=== PATIENT | female | born 1940 | race Caucasian/White ===

== ENCOUNTER 2023-12-06 15:02 | Inpatient (IN) | payer OTHER, SELFPAY ==
[2023-12-06] VITALS (54 sets, daily range): BP systolic 50–236; BP diastolic 20–207
[2023-12-06 11:00] LABS: Glucose - Point of Care 97 mg/dl (70-99)
--- NOTE | 2023-12-06 11:21 | ED.CVA ---
History of Present Illness
General
Chief Complaint: CVA/TIA Symptoms
Source: ambulance crew
Exam Limitations: none
Time Seen by Provider: 12/06/23 11:10
Nursing documentation reviewed up to this point in time: agreed with
Onset of Stroke Symptoms
Onset of symptoms known: No
Time pt last seen normal is known: Yes
Date last time pt seen normal: 12/05/23
Travel History
Have you had any contact with someone who has COVID-19?: Unable to Answer
Do you have any symptoms of coronavirus? Fever > 100 degrees, chills, cough, shortness of breath, sore throat, loss of taste or smell, muscle aches, or headache?: Unable to Answer
History of Present Illness
History of Present Illness:
83 yo female presents to the emergency department due to left-sided weakness. She had not been seen since 5 PM yesterday. She was found on the floor, slurred speech and left-sided weakness.
Past History
Past History
ED Past Medical History: Cancer (Skin cancer), HTN, Hypercholesterolemia and Other (Migraines)
ED Past Surgical History: Other (Rectal tumor removed)
Social History
Tobacco: Non-smoker
Alcohol: None
Drug: None
Personal: Single
Living: alone
Employment: Employed
Family History
Family History: Other (Noncontributory)
Review of Systems
Review of Systems
Allergies reviewed?: Yes
All Other Systems: Not applicable
Phy Exam
Physical Exam
Physical Exam:
Physical Exam
General: Ill-appearing, hypotensive
Neck: supple. no meningeal signs. normal posterior pharynx
Heart: s1/s2 tachycardia, irregular rhythm, no murmur. equal radial
pulses.
HEENT: Pupils equal round reactive to light, EOMI
Lungs: no acute respiratory distress. clear bilaterally
Abdomen: normal bowel sounds. not tender. no CVAT
Neuro: alert but not oriented, follows some commands. Left arm and leg weakness. Cranial nerves II through XII intact
Skin: no rash, pressure ulcer left buttock
Psychiatric: Confused
Extremities: no edema. no calf tenderness. negative homans. good distal pulses
Scores
NIH Stroke Score
Level of Consciousness: 0 - Alert
LOC Questions: 2-Neither correct
LOC Commands: 0-Performs both correctly
Best Horizontal Gaze: 0-Normal
Visual Rangel: 0=Normal, no visual loss
Facial Palsy: 0=Normal, symmetrical
Motor - Right Arm: 0=No drift 10 seconds
Motor - Left Arm: 4=No movement
Motor - Right Le-No drift 5 seconds
Motor - Left Le-Partial vs. gravity
Limb Ataxia: 0-Absent
Sensation: 0-Normal
Best Language: 0-No aphasia
Dysarthria: 1-Mild slurring
Extinction and Inattention: 2-Total susanne inattention
Total Score:: 11
Course
Orders/Labs/Results
Orders:
Orders
12/06/23 10:55
Electrocardiogram (*1) Urgent
Reason for Study: TIA/Stroke
12/06/23 10:57
CT Head W/o Iv Contrast Urgent
Comment:
Reason For Exam: change in mentation
EKG- Treatment ONCE
12/06/23 11:11
Complete Blood Count/With Diff Urgent
Comprehensive Metabolic Panel Urgent
Creatine Phosphokinase Urgent
Lactic Acid Urgent
Manual Differential Urgent
Urinalysis Reflex To Culture Urgent
Date Specimen was Collected: 12/06/23
Time Specimen was Collected: 11:10
Urine Microscopic Reflex Cult Urgent
Blood Culture Urgent
[facility] Source: Blood/Venous
Specimen Description:
Date Specimen was Collected: 12/06/23
Time Specimen was Collected: 11:10
12/06/23 11:16
Add On- LAB Urgent
Tests Added?: CPK
12/06/23 11:26
CR Chest Portable - 1 View Urgent
Comment:
Reason For Exam: hypoxia
Reason Study Needs to be Portable: Unable to Transport
12/06/23 11:32
0.9% Sodium Chloride 1000 ml [Nss] 2,000 ml IV BOLUS
12/06/23 14:12
Maldonado Catheter [Catheter- Indwelling] As Directed
Reason for insertion: Acute Kidney Injury
Discontinue Date/Time: 12/09/23 0600
Intake/ Output As Directed
Frequency: Per unit guidelines
Comment: strict intake and output monitoring
Weight As Directed
Frequency: Daily
12/06/23 14:25
Aspirin 300 mg RECTAL NOW STA
12/06/23 14:41
Blood Culture Urgent
[facility] Source: Blood/Venous
Specimen Description:
12/06/23 Dinner
NPO
Reason for opting out of [employer] order writing: Provider Decision
Allow oral meds: No
Allow clear liquids: No
12/07/23 08:00
Aspirin 300 mg RECTAL DAILY
Abnormal Lab Results
12/06/23
11:11
WBC 32.4 H 10^3/uL
(4.8-10.8)
RBC 7.10 H 10^6/uL
(4.20-5.40)
Hgb 17.8 H g/dL
(12.0-16.0)
Hct 52.0 H %
(37.0-47.0)
MCV 73.2 L fL
(81.0-99.0)
MCH 25.1 L pg
(27.0-31.0)
RDW 16.9 H %
(11.5-14.5)
Abs Neuts (Manual) 30.1 H 10^3/uL
(1.4-6.5)
Segmented Neutrophils 90 H %
(42-75)
Lymphocytes (Manual) 2 L %
(20-51)
Carbon Dioxide 15 L mmol/L
(22-30)
BUN 159 H* mg/dl
(7-17)
Creatinine 6.8 H* mg/dL
(0.6-1.0)
Glucose 109 H mg/dl
(70-99)
Lactic Acid 3.6 H mmol/L
(0.7-2.0)
AST 61 H U/L
(14-36)
Creatine Kinase 1334 H U/L
(30-135)
Urine Ketones Trace A
(Negative)
Ur Occult Blood Reflex 4+ A
(Negative)
Urine Bilirubin 1+ A
(Negative)
Leukocyte Esterase Rfl Trace A
(Negative)
Urine RBC 3-6 A /HPF
(0-2)
Urine Bacteria (Reflex) Few A
(Negative)
Urine Yeast Few A
(Negative)
Urine Albumin (Reflex) 3+ A
(Neg - Trace)
12/06/23 11:11
12/06/23 11:11
Vital Signs
Initial and Last Documented VS:
Initial Vital Signs
BP
112/100
12/06/23 10:57
Last Documented Vital Signs
Temp Pulse Resp BP Pulse Ox
97.1 F 104 20 140/98 96
12/06/23 10:58 12/06/23 13:31 12/06/23 13:31 12/06/23 13:31 12/06/23 13:31
MDM/Problems Addressed
Differential Diagnosis Includes:
CVA, hypovolemia, urinary retention
MDM/Problems Addressed:
83-year-old female with left-sided CVA, urinary retention, hypokalemia, rhabdomyolysis, acute kidney failure. IV fluids, no indication for tPA, his last known normal unclear. Admit to hospitalist.
Chronic conditions affecting care: HTN
Acute Exacerbation and/or Progression of Chronic Illness: HTN
*Radiology
Radiology exam reviewed: radiology read reviewed (CT head shows no signs of acute hemorrhage or transcortical infarct, large amount of low-attenuation of periventricular white matter, possibly due to ischemic changes or infarction, infectious or
toxic encephalopathy)
*Pulse Oximetry
Patient hypoxic: yes
*EKG
Interpreted by ED Provider?: Yes
EKG Intrepretation Date: 12/06/23
EKG Intrepretation Time: 11:05
Interpretation: abnormal
Comparison EKG: no changes
Heart Rate: 122
Rate: tachycardiac
Rhythm: sinus tachycardia
Sisters: normal axis
Interval: normal interval
QRS Pattern: normal QRS
Ischemia: no ischemia
*Franchise Manager Interpretation
Rate: tachycardiac
Interpretation: abnormal
Heart Rate: 125
Rhythm: sinus tachycardia
*Critical Care Note
Total Time (30-74mins, 75-104mins- exclusive of procedures): 30
comment:
Critical care statement: A total of 30 minutes of critical care time was provided for this patient. This includes management of unstable vital signs, evaluation of the patient at bedside, reviewing the patient's pertinent medical records, discussion
with consultants, review of old EKGs and review of pertinent medical records. This time with separate from time utilized to perform the aforementioned documented procedures
Data Reviewed
Review of Other/Old Records Reveals: Labs (Prior creatinine 1.2 on 08/02/2019)
Source: records
Prescriptions/Medications Considered But Not Given:
TNK considered, but not indicated due to timing
Patient Management
Social determinants of health affecting care: Living situation (Lives alone)
Discussion with other providers: Hospitalist and Rail Express Clerk (Neurology, Dr. Alvarado asked to see patient)
Escalation/DeEscalation of care consider admission/obs:
Admit indicated
ED Attending Note
-
Portions of this chart may have been created with voice recognition software.� Occasional wrong word or��sound alike� substitutions may have occurred due to the inherent limitations of voice recognition software.
Discharge Plan
Departure
Patient Disposition: Admit
Date of Disposition: 12/06/23
Time of Disposition: 13:25
Admit to: IMU
Presentation/result/management discussed w/ accepting MD/DO: Hospitalist
Patient with high blood pressure during this ER visit?: Yes
Condition: Fair
Discharge Problem:
Acute cerebrovascular accident (CVA), Acute renal failure, Acute urinary retention, Acute hypotension, Rhabdomyolysis
Prescriptions:
No Action
atorvastatin 10 mg tablet
10 mg PO DAILY
levothyroxine 50 mcg tablet
50 mcg PO MOTUWETHFRSA
losartan 100 mg tablet
100 mg PO DAILY
fluticasone propionate 50 mcg/actuation spray,suspension
2 spray INTRANASAL DAILY
potassium chloride 20 mEq tablet extended release
20 meq PO DAILY
Referrals:
Yvette Marie DO [Family Provider] -
Interventions
Interventions:
*Risk Screen - Suicide Last Done: 12/06/23 10:58
*General Assessment Last Done: 12/06/23 10:58
*Neglect/Abuse Screening Last Done: 12/06/23 10:58
ED- Pulmonary Assessment Last Done: 12/06/23 12:08
ED- Neurological Assessment Last Done: 12/06/23 12:08
ED- Cardiac Assessment Last Done: 12/06/23 12:08
ED Swallowing Screen Last Done: 12/06/23 12:12
Discharge Date and Time
Print Language: [place]
[2023-12-06 11:22] LABS: Hemoglobin 17.8 g/dL (12.0-16.0); Mean Corp Hgb Conc. 34.2 g/dL (33.0-37.0); Mean Corpuscular Hgb 25.1 pg (27.0-31.0); Mean Corpuscular Volume 73.2 fL (81.0-99.0); Mean Platelet Volume 10.1 fL (7.4-10.4); Nucleated Red Blood Cells % 0 %; Platelet Count 391 10^3/uL (130-400); Red Cell Dist. Width 16.9 % (11.5-14.5); White Blood Cell Count 32.4 10^3/uL (4.8-10.8)
[2023-12-06 11:30] LABS: Urine Albumin 3+ (Neg - Trace); Urine Bilirubin 1+ (Negative); Urine Character Slightly Cloudy (Clear); Urine Color Amber; Urine Glucose Negative (Negative); Urine Ketone Trace (Negative); Urine Leukocyte Trace (Negative); Urine Nitrite Negative (Negative); Urine Occult Blood 4+ (Negative); Urine Specific Gravity 1.025 (<1.030); Urine Urobilinogen Negative (Neg - 1+)
[2023-12-06 11:34] LABS: Lactic Acid 3.6 mmol/L (0.7-2.0)
[2023-12-06 11:50] LABS: ALT (SGPT) 28 U/L (0-35); AST (SGOT) 61 U/L (14-36); Alkaline Phosphatase 104 U/L (38-126); Blood Urea Nitrogen 159 mg/dl (7-17); Calcium 10.1 mg/dl (8.4-10.2); Carbon Dioxide 15 mmol/L (22-30); Chloride 98 mmol/L (98-107); Glucose 109 mg/dl (70-99); Potassium 5.1 mmol/L (3.5-5.1); Sodium 142 mmol/L (135-145); Total Bilirubin 1.2 mg/dl (0.2-1.3); Total Protein 7.1 g/dl (6.3-8.2); eGFR 5.67
[2023-12-06 11:58] LABS: Urine Bacteria Few (Negative); Urine White Cell None Seen /HPF (0-5); Urine Yeast Few (Negative)
[2023-12-06] MEDS: NSS 2000 IV (11:59)
[2023-12-06 12:10] LABS: Creatine Phosphokinase 1334 U/L (30-135)
[2023-12-06 13:31] LABS: Absolute Neutrophils -Man Diff 30.1 10^3/uL (1.4-6.5); Band Neutrophils 3 % (0-3); Lymphocytes 2 % (20-51); Monocytes 3 % (2-9); Myelocytes 2 % (-); Platelets Checked Yes; Segmented Neutrophils 90 % (42-75); Total Cells Counted 100
[2023-12-06 13:32] LABS: Anisocytosis Slight; Normal RBC Morphology No; Ovalocytes 1+
--- NOTE | 2023-12-06 14:12 | CON.NEURO ---
Neuro Assessment/Plan
Assessment
Acute onset left upper and lower extremity weakness with reduced responsiveness
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
Due to unclear time of onset of symptoms, likely greater than 6 hours based on metabolic disturbances, patient not a candidate for either tenecteplase or for arterial thrombectomy
Plan
Start aspirin 300 mg per rectum
Consider initiation of clopidogrel when patient can clearly take by mouth
Check lipid profile
Check MRI of brain when patient stable
Restart atorvastatin 10 mg when able to take by mouth
Medical educational materials to be provided
Goal of mild hypertension, likely benefit from blood pressures less than 180/105
Check carotid ultrasound when patient stable
Supportive care for metabolic disturbances
Will follow
Consultation
Order
Date of Consultation: 12/06/23
Requesting Provider: Hospitalists
Reason for Consult: Left-sided weakness
Subjective/Objective
Subjective Data
Date of Service: December 06, 2023
Unknown handed
Patient presented to this hospital's emergency department after being found down on the floor. The patient was last seen normal at 1700 hrs. yesterday. EMS noted that the patient had left-sided weakness and the patient was brought to this [facility]'s emergency department. Patient himself is unable to significantly provide medical history. It is not known if the patient has had prior symptoms to this effect in the past and there are no known modifying factors or associated symptoms.
Objective Data
Vital Signs
Temp Pulse Resp BP Pulse Ox
36.2 C 104 20 140/98 96
12/06/23 10:58 12/06/23 13:31 12/06/23 13:31 12/06/23 13:31 12/06/23 13:31
Lab Results
12/06/23 11:11
12/06/23 11:11
Sodium 142 mmol/L (135-145) 12/06/23 11:11
Potassium 5.1 mmol/L (3.5-5.1) 12/06/23 11:11
BUN 159 mg/dl (7-17) H* 12/06/23 11:11
Glucose 109 mg/dl (70-99) H 12/06/23 11:11
Calcium 10.1 mg/dl (8.4-10.2) 12/06/23 11:11
Patient Allergies
lisinopril [From Prinivil] Allergy (Verified 12/06/23 11:02)
coughing
Chocolate Allergy (Uncoded 12/06/23 11:02)
Mouth sores
CVA Assessment
Onset of Stroke Symptoms
Onset of symptoms known: No
Time pt last seen normal is known: Yes
Date last time pt seen normal: 12/05/23
Time last time pt seen normal: 17:00
NIH Stroke Score
Level of Consciousness: 2 - Obtunded
LOC Questions: 1-Answers one correctly
LOC Commands: 1-Performs one correctly
Best Horizontal Gaze: 1-Partial gaze palsy (not able to look to the left)
Visual Rangel: 3=Bilateral hemianopia
Facial Palsy: 0=Normal, symmetrical
Motor - Right Arm: 0=No drift 10 seconds
Motor - Left Arm: 4=No movement
Motor - Right Le-Drift < 5 seconds
Motor - Left Le-Drift < 5 seconds
Limb Ataxia: 0-Absent
Sensation: 0-Normal
Best Language: 0-No aphasia
Dysarthria: 1-Mild slurring
Extinction and Inattention: 0-No abnormality
Total Score:: 15
Tenecteplase Contraindications
Inclusion and Exclusion criteria reviewed: Yes
Reasons for NON-Tx with Thrombolytics ABSOLUTE Exclusions: Time-out of window
IAT Contraindications: >6 hrs from onset/last seen normal
Review of Systems
-
Unable to obtain full review of systems at this time due to: Lethargy
History Source: Patient
All other systems: Reviewed and negative
Physical Exam
-
General: No Apparent Distress and Appears Stated Age
Eyes: Round OU, [place] Conjunctivae and No Ptosis; Negative Able to visualize OU
HEENT: Anicteric, Moist Mucous Membranes and Other (mouth is erythematous)
Neck: Full Range of Motion
Respiratory: No Dyspnea
Cardiac: No JVD
GI: Non-distended
Skin: Unremarkable
Extremities: No Clubbing, No Cyanosis and No Edema
Psych: Unable to Assess
Extended Neurological Exam
Mood & Affect: Unable to Assess
Attention Span & Concentration: Interactive, Lethargic, Closes Eyes after Stimulation (after 10 seconds), Unable to Perform 2 Step Request and Other (performed rare one-step requests)
Memory: Able to Recall (own name, location is hospital) and Unable to Recall Personal History
Tremor: Head Tremor Absent, Distal and Amplitude (low right hand with action, irregular)
Speech: Moderately Reduced Output and Dysarthric
Cranial Nerve II: Left Eye: Pupillary Reactivity Unremarkable, Pupillary Size Unremarkable and Visual Rangel Reduced (left side)
Cranial Nerve II: Right Eye: Pupillary Reactivity Unremarkable, Pupillary Size Unremarkable and Visual Rangel Reduced (left side)
Cranial Nerves III, IV, : Extraocular Movement: Other (gaze preference to the right conjugately)
Cranial Nerve V: Facial Sensation: Unable to Assess
Cranial Nerve VII: Facial Symmetry: Normal Facial Symmetry
Cranial Nerve VIII: Hearing: Negative Unremarkable Hearing to Normal Conversational Volume
Cranial Nerves IX, X: Palate Movement: Palate Elevation Symmetric
Cranial Nerve XI: Shoulder Shrug: Unable to Assess
Cranial Nerve XII: Tongue Protusion: Unable to Assess
Muscle Strength, Overall: Reduced on Left (Upper and lower extremity with inability to lift same. Unable to fully assess right lower extremity strength although it seems to be intact to indirect testing)
Muscle Bulk & Tone: Bulk Unremarkable and Tone Unremarkable
Deep Tendon Reflexes: Unremarkable Throughout
Cold Sensation: Unable to Assess
Vibration Sensation: Unable to Assess
Coordination: Unable to Assess
Babinski Sign: Absent Bilaterally
Gait & Station: Unable to Assess
Data Reviewed
-
Reviewed with: Physician
Old Records: Summarized
Medications
-
Home Medications
�Medication �Instructions �Recorded
atorvastatin 10 mg tablet 10 mg PO DAILY 12/06/23
fluticasone propionate 50 2 spray intranasal DAILY 12/06/23
mcg/actuation nasal
spray,suspension
levothyroxine 50 mcg tablet 50 mcg PO MOTUWETHFRSA 12/06/23
losartan 100 mg tablet 100 mg PO DAILY 12/06/23
potassium chloride 20 mEq 20 meq PO DAILY 12/06/23
tablet,extended release
Past History
Past History
ED Past Medical History: Cancer (Skin cancer), HTN, Hypercholesterolemia and Other (Migraines)
ED Past Surgical History: Other (Rectal tumor removed)
Social History
Tobacco: Non-smoker
Alcohol: None
Drug: None
Personal: Single
Living: alone
Employment: Employed
Family History
Family History: Other (Noncontributory)
--- NOTE | 2023-12-06 14:29 | HPS.HSE ---
Addendum entered and electronically signed by Arpan Bender DO 12/06/23 18:00:
Patient is DNR according to Caron CHINO. Verified by Dr. Logan.
Addendum entered and electronically signed by Arpan Bender DO 12/06/23 17:24:
I was able to reach patient's neighbor Beth, who mentioned that the last time she actually spoke with Velia was Friday night. Therefore, I suspect that the event happened sometime after Fri.
She unfortunately is deteriorating clinically. I also spoke with patient's niece named Caron who is currently located in [place]. I asked her to try to come to as soon as she can as Velia may not survive this hospitalization. I explained the
critical nature of her acute illness. Caron understands. All questions answered.
Addendum entered and electronically signed by Arpan Bender DO 12/06/23 17:10:
Informed by nurse and IMU that patient now profoundly hypotensive. Systolic blood pressure in the 60s. IV fluid bolus and IV Levophed to start. Will transfer to ICU. Consult warehouse inventory clerk.
Addendum entered and electronically signed by Arpan Bender DO 12/06/23 16:13:
Correction: Atrial fibrillation has not been confirmed on EKG. Second EKG shows persistent sinus tachycardia.
Original Note:
Family Physician
<Sindy Jones PA-C - Last Filed: 12/06/23 14:56>
-
Family Physician: Yvette Marie
Chief Complaint
<Sindy Jones PA-C - Last Filed: 12/06/23 14:56>
-
Left sided weakness
History of Present Illness
Patient is an 83 y/o female past medical history of hypertension, hyperlipidemia and hypothyroidism who presents with left sided weakness. Patient appears to be having speech difficulty as well and unable to provide much additional history.
Apparently patient was last seen around 5pm yesterday by her neighbor. This morning her neighbor when to check on her and found her on the floor. Upon arrival to the emergency department she was noted to have significant left sided weakness as
well as an acute kidney injury.
Medical History
<Sindy Jones PA-C - Last Filed: 12/06/23 14:56>
Past Medical History
Past Medical History: Reports Other
Additional Past Medical History:
Essential Hypertension
Hyperlipidemia
Hypothyroidism
Past Surgical History: Reports Other
Additional Past Surgical History:
Hemorrhoidectomy
Rectal Tumor Removal
Social History
Unable to obtain full social history at this time due to: Acuity
Family History
Family History: Unable to Obtain
Allergies / Home Medications
Allergies reflects when Allergies were last updated in [facility].
Home Medications with original date entered in [facility]
Allergy/Medication List:
Allergies
Allergy/AdvReac Type Severity Reaction Status Date / Time
lisinopril [From Prinivil] Allergy coughing Verified 12/06/23 11:02
Chocolate Allergy Mouth sores Uncoded 12/06/23 11:02
Home Medications
atorvastatin 10 mg tablet 10 mg PO DAILY 12/06/23
fluticasone propionate 50 mcg/actuation nasal spray,suspension 2 spray intranasal DAILY 12/06/23
levothyroxine 50 mcg tablet 50 mcg PO MOTUWETHFRSA 12/06/23
losartan 100 mg tablet 100 mg PO DAILY 12/06/23
potassium chloride 20 mEq tablet,extended release 20 meq PO DAILY 12/06/23
Review of Systems
<Sindy Jones PA-C - Last Filed: 12/06/23 14:56>
-
Unable to obtain full review of systems at this time due to: Acuity
Physical Exam
<Sindy Jones PA-C - Last Filed: 12/06/23 14:56>
Vital Signs
Vital Signs
Temp Pulse Resp BP Pulse Ox
97.1 F 104 20 140/98 96
12/06/23 10:58 12/06/23 13:31 12/06/23 13:31 12/06/23 13:31 12/06/23 13:31
Physical Exam
General: Well Developed and Well Nourished
HEENT: Atraumatic and Other (Thick brown coating around teeth and tongue)
Respiratory: Clear and Non Labored Respirations
Cardiac: S1/S2, Irregular Rhythm and Tachycardia
GI: Soft and Non Tender
Rectal: Deferred by Provider
Musculoskeletal: No Clubbing, No Cyanosis and No Edema
Skin: Warm and Dry
Neuro: Awake, Alert and Other (Left hemiparesis); No Oriented (Unable to answer orientation questions due to apparent speech difficulty)
Laboratory Results
<Sindy Jones PA-C - Last Filed: 12/06/23 14:56>
-
12/06/23 11:11
12/06/23 11:11
Laboratory Results
Lactic Acid 3.6 mmol/L (0.7-2.0) H 12/06/23 11:11
Total Bilirubin 1.2 mg/dl (0.2-1.3) 12/06/23 11:11
AST 61 U/L (14-36) H 12/06/23 11:11
ALT 28 U/L (0-35) 12/06/23 11:11
Alkaline Phosphatase 104 U/L (38-126) 12/06/23 11:11
Data Reviewed
<Sindy Jones PA-C - Last Filed: 12/06/23 14:56>
-
Lab Data: Labs Reviewed by me
Impression/Plan
<Sindy Jones PA-C - Last Filed: 12/06/23 14:56>
-
Acute Kidney Injury secondary to Urinary Retention and Rhabdomyolysis
-Consult Nephrology
-Place Maldonado
-Continue IVFs
-Hold losartan
-Trend creatinine and CPK levels
Left Sided Weakness, highly suspicious for acute stroke
-Consult Neurology
-Start rectal aspirin
-Check Brain MRI with Head/Neck MRA
SIRS, low suspicion for infection
-Continue to monitor WBC and monitor for fevers
-Hold on antibiotics
Hypothyroidism
-Resume levothyroxine when able to take oral meds
DVT Proph: SCDs
Code Status: Full Code
<Arpan Bender DO - Last Filed: 12/06/23 15:11>
-
Acute Kidney Injury secondary to Urinary Retention and Rhabdomyolysis
-Consult Nephrology
-Place Maldonado
-Continue IVFs
-Hold losartan
-Trend creatinine and CPK levels
Left Sided Weakness, highly suspicious for acute stroke
-Consult Neurology
-Start rectal aspirin
-Check Brain MRI with Head/Neck MRA
SIRS, low suspicion for infection
-Continue to monitor WBC and monitor for fevers
-Hold on antibiotics
Hypothyroidism
-Resume levothyroxine when able to take oral meds
DVT Proph: SCDs
Code Status: Full Code
Attending note:
Patient seen and examined and discussed with JOHANNA Baig, and agree with her note.
Gen-awake but not alert, NAD, not following all commands
HEENT-NC, AT, anicteric, very dry oral mucous membranes
Neck-supple
CV- irregular, tachycardic, + S1/S2
Lungs-clear B/L
Abd-soft, NT, ND
Ext-no edema
Musculoskeletal-no cyanosis, clubbing
Skin-warm and dry
Neuro-left hemiparesis
Psych-calm, cooperative
Acute stroke -with left hemiparesis. Suspect due to embolic stroke due to undiagnosed atrial fibrillation. Onset of symptoms unclear. Reportedly last known normal was 5 PM on December 04. Admit to IMU. Consult neurology.
CT brain without acute disease. Does show large amount of low-attenuation changes. Mild diffuse cerebral and cerebellar volume loss.
Will need brain MRI. Continue aspirin. N.p.o. until evaluated by speech therapy and more stable clinically.
Acute TME -likely multifactorial etiology including acute stroke, acute kidney injury, volume depletion, etc.
KIMBERLY -likely due to profound volume depletion, acute urinary retention, etc. Start IVFs. Insert Maldonado catheter. Urinalysis notes hematuria, no WBCs. 3+ albuminuria.
Hold losartan. Consult nephrology.
Acute urinary retention -insert Maldonado catheter as above.
High anion gap metabolic acidosis -likely due to KIMBERLY, starvation, etc. Trace urine ketones noted. Anion gap 29. Start sodium bicarbonate IV drip.
Atrial fibrillation -likely new diagnosis, abnormal rhythm noted on heart monitor. Check EKG now. Discussed with ER staff.
Lactic acidosis -likely due to profound volume depletion, KIMBERLY.
Mild traumatic rhabdomyolysis -due to fall, stroke, immobility. IV fluids as above.
Hypothyroidism -check TSH.
Essential hypertension -hypotension related to profound volume depletion, improving with IV fluids. Hold losartan for KIMBERLY.
Hyperlipidemia -on atorvastatin.
Full code
[2023-12-06] MEDS: ASPIRIN 300 MG RECTAL (14:55)
[2023-12-06] MEDS: SODIUM BICARBONATE 1150 MEQ IV (15:48)
--- NOTE | 2023-12-06 16:55 | PTOTSP ---
ST Acute Care Evaluation
Pt presents with severe oropharyngeal dysphagia 2/2 acute metabolic encephalopathy as well as possible CVA.
Recommendations:
- STRICT NPO; NO ARHP; NO MEDS BY MOUTH; recommend placement of NG tube for temporary means of nutrition/med administration.
- Strict aspiration precautions: HOB raised as often as possible; oral care QID with suctioning via yankauer; suctioning as needed for secretion management.
- SHIM PLUG CUTTER will continue to follow.
[2023-12-06] MEDS: NSS 500 IV (17:17)
[2023-12-06] MEDS: LEVOPHED 250 IV (17:17)
--- NOTE | 2023-12-06 17:35 | W.CON.NEPH ---
Consultation
-
Date/Time Consultation Requested: 12/06/23 1600
Date/Time Consultation Performed: 12/06/23 1730
Requesting Provider: Lis Bar
Performing Provider: Kellie Yang
Reason for Consultation: KIMBERLY
Medical History
-
Chief Complaint: left side weakness
History of Present Illness:
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 Apparently patient last spoke with neighbor Velia on Friday and This
morning her neighbor when to check on her and found her on the floor. Upon arrival to the emergency department she was noted to have significant left sided weakness with high concern of CVA. MS gradually decreasing now. Her BP were high 200 range
however now hypotensive on pressors. her cr noted at 6.8(cr 1.2 in 2019), BUN 159, K 5.1, hb 17, WBC 32k. Byrne catheter placed in ER and draining dark urine. Pt is not responding well at this time and history is limited.
Past Medical History
Essential Hypertension
Hyperlipidemia
Hypothyroidism
Social History
unable to obtain due to AMS
Family History
unable to obtain due to AMS
Allergies / Home Medications
Allergy/AdvReac Type Severity Reaction Status Date / Time
lisinopril [From Prinivil] Allergy coughing Verified 12/06/23 11:02
Chocolate Allergy Mouth sores Uncoded 12/06/23 11:02
�Medication �Instructions �Recorded �Confirmed �Type
atorvastatin 10 mg tablet 10 mg PO DAILY 12/06/23 12/06/23 History
fluticasone propionate 50 2 spray intranasal DAILY 12/06/23 12/06/23 History
mcg/actuation nasal
spray,suspension
levothyroxine 50 mcg tablet 50 mcg PO MOTUWETHFRSA 12/06/23 12/06/23 History
losartan 100 mg tablet 100 mg PO DAILY 12/06/23 12/06/23 History
potassium chloride 20 mEq 20 meq PO DAILY 12/06/23 12/06/23 History
tablet,extended release
Review of Systems
-
unable to obtain due to AMS
Physical Exam
Vital Signs
Vital Signs
Temp Pulse Resp BP Pulse Ox
97.5 F 105 21 84/48 95
12/06/23 16:34 12/06/23 16:00 12/06/23 16:00 12/06/23 16:00 12/06/23 16:00
Lab Results
WBC 32.4 10^3/uL (4.8-10.8) H 12/06/23 11:11
RBC 7.10 10^6/uL (4.20-5.40) H 12/06/23 11:11
Hgb 17.8 g/dL (12.0-16.0) H 12/06/23 11:11
Hct 52.0 % (37.0-47.0) H 12/06/23 11:11
Plt Count 391 10^3/uL (130-400) 12/06/23 11:11
Sodium 142 mmol/L (135-145) 12/06/23 11:11
Potassium 5.1 mmol/L (3.5-5.1) 12/06/23 11:11
Chloride 98 mmol/L (98-107) 12/06/23 11:11
Carbon Dioxide 15 mmol/L (22-30) L 12/06/23 11:11
BUN 159 mg/dl (7-17) H* 12/06/23 11:11
Creatinine 6.8 mg/dL (0.6-1.0) H* 12/06/23 11:11
eGFR 5.67 12/06/23 11:11
Glucose 109 mg/dl (70-99) H 12/06/23 11:11
Calcium 10.1 mg/dl (8.4-10.2) 12/06/23 11:11
Albumin 4.0 g/dl (3.5-5.0) 12/06/23 11:11
CT head:
IMPRESSION:
1. No CT evidence for acute intracranial hemorrhage or transcortical infarct.
2. Large amount of low-attenuation in the periventricular white matter of both frontal lobes, the right basal ganglia, the anterior limbs of the internal capsules, and the caudate nuclei (right greater than left). Diagnostic possibilities are (1)
ischemic changes/infarction in both the burroughs matter and white matter with possible cytotoxic edema, but no mass effect, (2) an infectious, inflammatory, or toxic encephalopathy, or (3) extensive dilated perivascular spaces.
3. 5.5 mm low-attenuation lesion in the right thalamus which is likely either cytotoxic edema or encephalomalacia secondary to a lacunar infarct.
4. Mild diffuse cerebral and cerebellar volume loss.
5. No CT evidence for acute calvarial fracture or scalp soft tissue hematoma.
CXR:
IMPRESSION:
LARGE HIATAL HERNIA with adjacent mild chronic subpleural scarring and subsegmental atelectasis in the basilar segments of the lower lobes of both lungs.
Physical Exam
General: Other (lethargic)
HEENT: Anicteric and No JVD
Respiratory: Clear
Cardiac: S1/S2 and Regular Rate/Rhythm
Abdomen: Soft, Nontender and Nondistended
Musculoskeletal: Cyanosis (mild perpipheral tips of fingers) and No Edema
Skin: Other (per nursing pressure wound in the back)
Neuro: Other (left neglect, flaccid left side)
Psych: Other (unable to assess)
Assessment/Plan
-
IMP:
Suspected septic shock
Acute Kidney Injury
Urinary Retention
mild Rhabdomyolysis
Left Sided Weakness, highly suspicious for acute stroke
A gap met acidosis
Hypothyroidism
HLD
PLan:
A/w left side weakness concern of CVA
KIMBERLY-baseline cr of 1.2 in 2019
suspect ATN, UA with micro hematuria, alb+
check serologies and renal US
monitor UOP with byrne-very dark urine in the bag
aggressive iVF since she looks vol depleted
prn bolus is ok, pressors to keep MAP>65
met acidosis, mild lL acidosis cont iVF bicarb gtt
suspecting infection-abx per primary
stable resp status but altered
avoid nephrotoxins, ARB
no emergent indication of HD
spoke with Héctor SheetsJudithMATTI on phone and explained critical situation
she understands and reports that pt is DNR-no CPR or vent
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
d/w nursing
CC time spent 40min
Data Reviewed
-
Radiology: Report Reviewed by me
CT Scan: Report Reviewed by me
Labs: Labs Reviewed by me and Discussed with Family
[2023-12-06] MEDS: LIPITOR PO (17:36)
--- NOTE | 2023-12-06 18:39 | PTCARENOTE ---
Received patient by stretcher from ED. Patient flaccid on left side. Slurred speech, gazes right, ignores left side, confusing left side and right side when following commands. Very difficult to obtain proper NIHSS due to patients labile mentation.
Patient varies from obtunded to AAOx2. Patient became very hypotensive. 500cc bolus given, levo started, see mar. Current BP improved. 2L NC, sats 95%. Sinus arrythmia. Afib at times. Patient with wounds POA, see documentation. WOCN consulted.
Patient failed speech eval, keeping strict NPO. Maldonado with cloudy brown output. Mouth care provided. Q2T. Bicarb running as ordered. Neighbor was at bedside, states she was mistaken when she said she spoke to patient at 5pm last night and said it
was actually Friday when she last spoke to patient. Awaiting ICU bed. Continuing to closely monitor patient.
[2023-12-06 18:52] LABS: HDL Cholesterol 43 mg/dl; LDL Cholesterol, Calculated 85 mg/dl; Total Cholesterol 171 mg/dl (50-199); Triglyceride 219 mg/dl (10-149); Very Low Density Lipoprotein 43 mg/dl (0-30)
[2023-12-06 19:16] LABS: Urine Sodium 89 mmol/L (30-90)
--- NOTE | 2023-12-06 20:14 | PTCARENOTE ---
Received pt at shift change and assessed with day shift nurse and NIHSS scale increased from 18 to 23due to varying ability to participate. She Gazes to the Right side and will not track hand movements. She will respond to her name and will answer
simplke questions. She becomes drowsy after asking her to follow commands. She Is flaccid on the left side and can make a fist with the Right hand. BP is improved on Levophed at 4 mcg.min. Mouth is dry, cafeteria monitor is atrial fibrillation and
atrial tachycardia and at times her rhythm looks like sinus rhythm briefly. DECK ENGINEER notified of changes and up to see pt. MAP is 82.
[2023-12-06 20:38] LABS: Glucose - Point of Care 89 mg/dl (70-99)
[2023-12-06] MEDS: ZOSYN 50 IV (21:00)
[2023-12-06 21:03] LABS: COVID-19 Antigen Negative (Negative)
[2023-12-06 21:14] LABS: Urine Protein 760 mg/dl (0-12)
[2023-12-06 21:18] LABS: B.E. -3.5 mmol/L; HCO3 18.2 mmol/L (21-28); O2 Saturation % 97.2 % (94-98); PCO2 25 mmHg (32-35); PO2 79 mmHg (83-108); pH 7.47 (7.35-7.45)
[2023-12-06] MEDS: VANCOCIN 300 ML IV (21:33)
[2023-12-06] MEDS: VANCOCIN 300 MG IV (21:33)
--- NOTE | 2023-12-06 23:15 | PTCARENOTE ---
Pt is a bit more awake and is able to track my finger partly to the left. She also can move her L fingers and toes on command. She has become more able to make her needs known. Rectal temps have been 97.6 so warm blankets applied to pt. Iv team
inserted a Midline catheter in the R arm and Levophed drip moved to that IV site. She was incontinent of liquid stool. She complains of pain with any movement especially her Left leg when it is moved as when she is turned.Monitor remains atrial
fibrillation at times RVR up to 150 beats per min and rate is mainly 100-110's. BP has improved and is grater than 90 at 4 mcg/min on Levophed. Will continue to monitor pt.
--- NOTE | 2023-12-06 23:55 | PHA.VAN.IN ---
Assessment
- Assessment
Renal Function: Appears elevated from baseline (Pt with KIMBERLY, Scr 6.8)
Concomitant Antimicrobials: Piperacillin/tazobactam
Plan
- Plan
Initial / Loading Dose: Vancomycin 1500mg IV given 12/05 at 2130
Maintenance Regimen: Will dose by level due to renal function.
Monitoring: Random vancomycin level for 12/06 with AM labs.
Pharmacokinetics Vancomycin I
- -
Patient Age: 3
Patient Sex: Female
Vancomycin Day #: 1
Indication: Bacteremia
Requesting Provider: Dr. Bender
Pertinent Antimicrobial Allergies:
no pertinent antibiotic allergies
Height / Weight:
Height 5 ft 4 in
Actual Weight 77.8 kg
- Vital Signs / Lab Results
Temp Pulse Resp BP Pulse Ox
98.6 F 97 16 114/58 99
12/06/23 23:06 12/06/23 23:30 12/06/23 23:30 12/06/23 23:30 12/06/23 23:38
Lab Results - Hematology
12/06/23
11:11
WBC 32.4 H
Band Neutrophils 3
Lab Results - Chemistry
12/06/23
11:11
BUN 159 H*
Creatinine 6.8 H*
Albumin 4.0
12/06/23
11:11
Lactic Acid 3.6 H
Lab Results - Urine
12/06/23
11:11
Urine Nitrite (Reflex) Negative
Leukocyte Esterase Rfl Trace A
Urine WBC (Reflex) None seen
Urine Bacteria (Reflex) Few A
Microbiology Results
12/06/23 20:43 Influenza Types A & B (SOM) - Final
Nasal Swab Negative for Influenza A & B, NAAT
Negative results must be combined with clinical observations
and patient history.
Nucleic Acid Amplification test (NAAT)performed on the
[employer] platform.
[2023-12-07] VITALS (42 sets, daily range): BP systolic 85–146; BP diastolic 36–120
[2023-12-07 02:06] LABS: Lactic Acid 1.2 mmol/L (0.7-2.0)
[2023-12-07] MEDS: SODIUM BICARBONATE 1150 MEQ IV ×2 (02:06→11:33)
--- NOTE | 2023-12-07 02:50 | PTCARENOTE ---
Pt noted to have a blanched area above her iv site on the L lower arm. This was the site that had Levophed running prior to the Mid Line IV was inserted. IV flushe and pt indicated that it was painful. IV team notified and CLAY TEMPERER also notified of the
condition of the iv site and need for antidote.
[2023-12-07] MEDS: REGITINE 10 MG SC (03:36)
[2023-12-07] MEDS: REGITINE 10 ML SC (03:36)
--- NOTE | 2023-12-07 03:41 | VATNOTE ---
VAT paged to administer antidote for levophed infiltrate in left wrist area measuring 3cm X 6cm. 5 SC injections administered around infiltrate area. Patient's left warm elevated on pillow. Primary RN and KALSOMINER at bedside. Will continue to monitor.
[2023-12-07] MEDS: ZOSYN 50 IV ×3 (04:45→20:11)
[2023-12-07 05:46] LABS: % Basophils 0.3 % (0-2); % Eosinophils 0.5 % (0-6); % Immature Granulocytes 1.1 % (0-0.5); % Lymphocytes 3.9 % (20.5-51.1); % Monocytes 6.3 % (1.7-9.3); % Neutrophils 87.9 % (42.2-75.2); Absolute Basophils 0.1 10^3/uL (0-0.2); Absolute Eosinophils 0.1 10^3/uL (0-0.7); Absolute Immature Granulocytes 0.2 10^3/uL (0-0.05); Absolute Lymphocytes 0.8 10^3/uL (1.2-3.4); Absolute Monocytes 1.2 10^3/uL (0.1-0.6); Absolute Neutrophils 17.1 10^3/uL (1.4-6.5); Hematocrit 42.2 % (37.0-47.0); Hemoglobin 14.1 g/dL (12.0-16.0); Mean Corp Hgb Conc. 33.4 g/dL (33.0-37.0); Mean Corpuscular Hgb 25.3 pg (27.0-31.0); Mean Corpuscular Volume 75.8 fL (81.0-99.0); Mean Platelet Volume 10.5 fL (7.4-10.4); Nucleated Red Blood Cells % 0 %; Platelet Count 257 10^3/uL (130-400); Red Blood Cell Count 5.57 10^6/uL (4.20-5.40); Red Cell Dist. Width 14.6 % (11.5-14.5); White Blood Cell Count 19.5 10^3/uL (4.8-10.8)
[2023-12-07 06:04] LABS: Calcium 8.4 mg/dl (8.4-10.2); Chloride 104 mmol/L (98-107); Creatine Phosphokinase 1290 U/L (30-135); Glucose 100 mg/dl (70-99); HDL Cholesterol 33 mg/dl; Potassium 3.4 mmol/L (3.5-5.1); Sodium 140 mmol/L (135-145); Triglyceride 147 mg/dl (10-149); Very Low Density Lipoprotein 29 mg/dl (0-30)
[2023-12-07 06:06] LABS: Vancomycin Random 18.4 ug/ml
[2023-12-07 06:07] LABS: Complement C3 99 mg/dl (88-165)
[2023-12-07 06:19] LABS: Carbon Dioxide 22 mmol/L (22-30); Estimated Creatinine Clearance 10 ml/min; LDL Cholesterol, Calculated 43 mg/dl; Total Cholesterol 105 mg/dl (50-199); eGFR 8.84
[2023-12-07 06:26] LABS: Blood Urea Nitrogen 150 mg/dl (7-17)
[2023-12-07 06:27] LABS: TSH Reflex To Free T4 1.22 uIU/ml (0.47-4.68)
--- NOTE | 2023-12-07 08:36 | W.PN.HOSP.TC ---
Addendum entered and electronically signed by Arpan Bender DO 12/07/23 12:53:
MATTI Reardon updated. She will be up to visit Velia this Friday.
Addendum entered and electronically signed by Arpan Bender DO 12/07/23 12:30:
Iatrogenic right pneumothorax -due to Dobbhoff tube placement. Urgent chest tube placed by IR this morning. Chest x-ray postprocedure shows reexpansion of lung. Hold off on reattempting Dobbhoff tube placement today.
Original Note:
Today's Communication/Plan
-
Place Dobbhoff tube
Start tube feeds
Await brain MRI
IV potassium chloride
Assessment / Plan
Assessment / Plan
Gen-awake, alert
HEENT-NC, AT, anicteric, dry oral mucous membranes
Neck-supple
CV-reg, no M, +S1/S2
Lungs-clear B/L
Abd-soft, NT, ND
Ext-no edema
Musculoskeletal-no cyanosis, clubbing
Skin-warm and dry
Zeicu-flod-dhtnw neglect, left hemiparesis
Acute stroke -with left hemiparesis. Await brain MRI. Neurology following. Strict NPO. High aspiration risk. Start tube feeds per nutrition recommendation. Nursing to place Dobbhoff tube. Discussed with nursing. No evidence of atrial
fibrillation on EKG so far.
Acute TME -likely multifactorial etiology including acute stroke, acute kidney injury, volume depletion, etc.
Somewhat more awake and alert today but still encephalopathic. Able to tell me she is in the hospital but cannot name the hospital.
KIMBERLY -likely due to profound volume depletion, acute urinary retention, etc. Creatinine coming down. Continue IV fluids. Nephrology following. Hold losartan.
Hypovolemic shock -on low-dose Levophed. Shock due to profound volume depletion. Clinically doubt sepsis. Wean down as able. Discussed with nursing. Blood pressure improved.
Hypokalemia -replete intravenously. Magnesium is 2.0.
Acute urinary retention -Maldonado catheter inserted in the emergency room.
High anion gap metabolic acidosis -likely due to KIMBERLY, starvation, etc. Trace urine ketones noted. Bicarbonate improved to 22 on bicarb drip. Anion gap improving.
Lactic acidosis -likely due to profound volume depletion, KIMBERLY. Lactate normalized.
Mild traumatic rhabdomyolysis -due to fall, stroke, immobility. IV fluids as above. CPK trending down.
Hypothyroidism -TSH 1.22. Resume levothyroxine when able.
Essential hypertension -hypotension related to profound volume depletion, improving with IV fluids. Hold losartan for KIMBERLY.
Hyperlipidemia -on atorvastatin.
Full code
Anticipated Discharge: > 48 hours
Subjective/Interval History
-
Date of Service: December 07, 2023
Patient seen and examined. Looks comfortable. Has difficulty verbalizing. No complaints.
Objective Data
-
Labs:
Laboratory Results
12/06/23 12/07/23
20:44 05:03
WBC 19.5 H
Hgb 14.1 D
Hct 42.2
Plt Count 257 D
HCO3 18.2 L
Sodium 140
Potassium 3.4 L D
Chloride 104
Carbon Dioxide 22
BUN 150 H*
Creatinine 4.7 H*
Glucose 100 H
Calcium 8.4 D
Vital Signs:
Vital Signs
Temp Pulse Resp BP Pulse Ox
98.2 F 99 18 111/64 95
12/07/23 08:36 12/07/23 06:30 12/07/23 06:30 12/07/23 06:30 12/07/23 06:30
I&O
12/06/23 12/07/23 12/08/23
06:59 06:59 06:59
Intake Total 1600 / 1600
Output Total 900 / 900
Balance 700 / 700
Review of Systems
-
History Source: Patient
All other systems: Reviewed and negative
--- NOTE | 2023-12-07 08:40 | W.PN.NEURO.1 ---
Today's Communication / Plan
-
Started aspirin 300 mg per rectum, change to 81 mg by mouth when possible
Consider initiation of clopidogrel when patient can clearly take by mouth
Neuro Assessment/Plan
Assessment
Acute onset left upper and lower extremity weakness with reduced responsiveness
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
Due to unclear time of onset of symptoms, likely greater than 6 hours based on metabolic disturbances, patient not a candidate for either tenecteplase or for arterial thrombectomy
Plan
Started aspirin 300 mg per rectum, change to 81 mg by mouth when possible
Consider initiation of clopidogrel when patient can clearly take by mouth
Check lipid profile
Check MRI of brain when patient stable
Restart atorvastatin 10 mg when able to take by mouth
Medical educational materials to be provided
Goal of normotension
Check carotid ultrasound when patient stable
Supportive care for metabolic disturbances
Will follow
Subjective/Objective
Subjective Data
Date of Service: December 07, 2023
Patient unable to provide own medical history.
Objective Data
Vital Signs
Temp Pulse Resp BP Pulse Ox
36.8 C 99 18 111/64 95
12/07/23 08:36 12/07/23 06:30 12/07/23 06:30 12/07/23 06:30 12/07/23 06:30
Lab Results
12/07/23 05:03
12/07/23 05:03
Sodium 140 mmol/L (135-145) 12/07/23 05:03
Potassium 3.4 mmol/L (3.5-5.1) L D 12/07/23 05:03
BUN 150 mg/dl (7-17) H* 12/07/23 05:03
Glucose 100 mg/dl (70-99) H 12/07/23 05:03
Calcium 8.4 mg/dl (8.4-10.2) D 12/07/23 05:03
LDL Cholesterol, Calc 43 mg/dl 12/07/23 05:03
Patient Allergies
lisinopril [From Prinivil] Allergy (Verified 12/06/23 11:02)
coughing
Chocolate Allergy (Uncoded 12/06/23 11:02)
Mouth sores
Review of Systems
-
Unable to obtain full review of systems at this time due to: Lethargy
History Source: Patient
All other systems: Reviewed and negative
Physical Exam
-
General: No Apparent Distress and Appears Stated Age
Eyes: Round OU, Frostproof Conjunctivae and No Ptosis
HEENT: Anicteric, Moist Mucous Membranes and Other (mouth is erythematous)
Neck: Full Range of Motion
Respiratory: No Dyspnea
Cardiac: No JVD
GI: Non-distended
Skin: Unremarkable
Extremities: No Clubbing, No Cyanosis and No Edema
Psych: Unable to Assess
Extended Neurological Exam
Mood & Affect: Unable to Assess
Attention Span & Concentration: Interactive, Lethargic, Closes Eyes after Stimulation (after 10 seconds), Unable to Perform 2 Step Request and Other (performed rare one-step requests)
Memory: Able to Recall (own name, location is hospital) and Unable to Recall Personal History
Tremor: Hand Tremor Absent and Head Tremor Absent
Speech: Moderately Reduced Output and Dysarthric
Cranial Nerve II: Left Eye: Pupillary Size Unremarkable
Cranial Nerve II: Right Eye: Pupillary Size Unremarkable
Cranial Nerves III, IV, : Extraocular Movement: Other (gaze preference to the right conjugately)
Cranial Nerve V: Facial Sensation: Unable to Assess
Cranial Nerve VII: Facial Symmetry: Normal Facial Symmetry
Cranial Nerve VIII: Hearing: Negative Unremarkable Hearing to Normal Conversational Volume
Cranial Nerves IX, X: Palate Movement: Palate Elevation Symmetric
Cranial Nerve XI: Shoulder Shrug: Unable to Assess
Cranial Nerve XII: Tongue Protusion: Unable to Assess
Muscle Strength, Overall: Reduced on Left (Upper and lower extremity with inability to lift same. Unable to fully assess right lower extremity strength although it seems to be intact to indirect testing)
Muscle Bulk & Tone: Bulk Unremarkable and Tone Unremarkable
Cold Sensation: Unable to Assess
Vibration Sensation: Unable to Assess
Coordination: Unable to Assess
Gait & Station: Unable to Assess
Data Reviewed
-
Labs: Report Reviewed
Reviewed with: Nurse and Patient
Old Records: Summarized
Past History
Past History
ED Past Medical History: Cancer (Skin cancer), HTN, Hypercholesterolemia and Other (Migraines)
ED Past Surgical History: Other (Rectal tumor removed)
Social History
Tobacco: Non-smoker
Alcohol: None
Drug: None
Personal: Single
Living: alone
Employment: Employed
Family History
Family History: Other (Reviewed and Noncontributory)
Medications
-
Medications:
Generic Name Dose Route Start Last Admin
Trade Name Freq PRN Reason Stop Dose Admin
Acetaminophen 650 mg 12/06/23 16:07
Acetaminophen 650 Mg Rectal Suppository RECTAL 01/03/24 16:06
Q4HPRN PRN
CLEANING, mild pain, or temp >100.4F
Acetaminophen 650 mg 12/06/23 16:07
Acetaminophen 325 Mg Tablet PO 01/03/24 16:06
Q4HPRN PRN
CLEANING, mild pain, or temp >100.4F
Aspirin 300 mg 12/07/23 08:00 12/07/23 09:08
Aspirin 300 Mg Rectal Suppository RECTAL 01/04/24 07:59 300 mg
DAILY ART Administration
Atorvastatin Calcium 10 mg 12/06/23 18:00 12/06/23 17:36
Atorvastatin (Lipitor) 10 Mg Tablet PO 01/03/24 17:59 Not Given
QPM ART
Norepinephrine Bitartrate 4 mg in 250 mls @ 0 mls/hr 12/06/23 17:15 12/06/23 17:17
Levophed IV 250 mls
PER PROTOCOL ART Administration
Protocol
Per Protocol
Piperacillin Sod/Tazobactam Sod 2.25 grams in 50 mls @ 100 mls/hr 12/06/23 20:00 12/07/23 11:08
Zosyn IV 50 mls
Q8H ART Administration
Vancomycin HCl 1 each/ Device 0 mls @ 0 mls/hr 12/06/23 18:00
IV
PER PROTOCOL ART
Protocol
As Directed
Sodium Bicarbonate 150 meq/ 1,150 mls @ 100 mls/hr 12/07/23 13:00
Sterile Water IV 12/08/23 11:59
.[id number] ART
Sodium Chloride 0 flush 12/06/23 16:00
Sodium Chloride 0.9% (Flush) Syringe IV 01/03/24 15:59
PER PROTOCOL ART
[2023-12-07] MEDS: KCL 270 MEQ IV (09:07)
[2023-12-07] MEDS: ASPIRIN 300 MG RECTAL (09:08)
--- NOTE | 2023-12-07 09:59 | PHA.VAN.FU ---
Vancomycin Assessment / Plan
- Assessment
Renal Function: SCR Decreasing (6.8->4.7)
WBC's are: Trending Down (32.4->19.5)
In the past 24 hrs, patient has been: Afebrile
Concomitant Antimicrobials: piperacillin/tazo
- Assessment - Therapeutic Drug Monitoring
Random Level: 18.4 - ~ 8 hours post 1500 mg dose
- Dosing Plan
Continue: dosing by random level due to renal function
Dosing by Level: Hold off on dosing today
- Monitoring Plan
Random Level: 12/07 599
- Follow Up
Pharmacy will continue to follow.
Vancomycin Follow UP
- -
Patient Age: 83
Patient Sex: Female
Vancomycin Day #: 2
Indication: Bacteremia
Requesting Provider: Dr. Bender
Pertinent Antimicrobial Allergies:
no pertinent antibiotic allergies
Height / Weight:
Height 5 ft 4 in
Actual Weight 79.1 kg
- Vital Signs / Lab Results
Temp Pulse Resp BP Pulse Ox
98.2 F 99 18 111/64 95
12/07/23 08:36 12/07/23 06:30 12/07/23 06:30 12/07/23 06:30 12/07/23 06:30
Lab Results - Hematology
12/06/23 12/07/23
11:11 05:03
WBC 32.4 H 19.5 H
Band Neutrophils 3
Lab Results - Chemistry
12/06/23 12/07/23
11:11 05:03
BUN 159 H* 150 H*
Creatinine 6.8 H* 4.7 H*
Estimated Creat Clear 10
Albumin 4.0
12/06/23 12/07/23
11:11 01:44
Lactic Acid 3.6 H 1.2
Lab Results - Urine
12/06/23
11:11
Urine Nitrite (Reflex) Negative
Leukocyte Esterase Rfl Trace A
Microbiology Results
12/06/23 20:43 Influenza Types A & B (SOM) - Final
Nasal Swab Negative for Influenza A & B, NAAT
Negative results must be combined with clinical observations
and patient history.
Nucleic Acid Amplification test (NAAT)performed on the
[employer] platform.
Therapeutic Drug Monitoring
Random Vancomycin 18.4 ug/ml 12/07/23 05:03
[2023-12-07 10:36] LABS: Glycohemoglobin (HgbA1c) 5.4 % (4.0-5.6)
--- NOTE | 2023-12-07 11:52 | PTCARENOTE ---
Dobhoff tube feed placement by TREATMENT COUNSELOR at bedside. Pt coughing excessively and became tachypneic, tachycardic with pulse ox 87%. Pt placed on o2 4L, STAT chest and abdominal x-rays obtained. Chest reveals rt pneumothorax and Dobhoff not in stomach,
Dobhoff removed, Dr. Bender notified by this RN and radiology. IRAD notified for Cheat tube placement, Pt transported to IRAD via bed with RN and report given to RN. Norepinephrine infusing at 2mcg/min via rt midline. IVF@120 and KCL rider @67.5
infusing via pump through rt forearm site.
[2023-12-07] MEDS: LEVOPHED 250 IV (13:34)
--- NOTE | 2023-12-07 14:00 | CON.INTV ---
Consultation
Consultation Request
Date/Time Consultation Requested: 12/07/2023
Date/Time Consultation Performed: 12/07/2023
Requesting Provider: Dr. Bender
Performing Provider: Dr. Isaias Cortes
Reason for Consultation: Septic shock/iatrogenic right pneumothorax
Medical History
-
History of Present Illness:
83-year-old woman who presented with acute left upper and lower extremity weakness with reduced responsiveness. Patient was deemed not a candidate for tenecteplase. Medical management only recommended.
Initial CT head showed no evidence for bleeding. There is changes consistent with possible ischemic injury. There is lacunar infarcts. There is mild diffuse cerebellar and cerebral volume loss.
She was found to be on acute kidney injury with urinary retention, rhabdomyolysis. Subsequently became hypotensive requiring vasopressors. BUN and creatinine significantly elevated. Leukocytosis noted.
Underwent NG tube placement, subsequently placement in the lung with pneumothorax from
Chest tube also was placed.
Past Medical History
Past Medical History: Other (Unable to provide, obtained from records.)
Social History
Tobacco: Other (Unable to provide due to mental status)
Family History
Family History: Unable to Obtain (Mental status change, critical situation)
Allergies / Home Medications
Allergies
Allergy/AdvReac Type Severity Reaction Status Date / Time
lisinopril [From Prinivil] Allergy coughing Verified 12/06/23 11:02
Chocolate Allergy Mouth sores Uncoded 12/06/23 11:02
Home Medications
�Medication �Instructions �Recorded �Confirmed �Last Taken �Type
atorvastatin 10 mg tablet 10 mg PO DAILY 12/06/23 12/06/23 Unknown History
fluticasone propionate 50 2 spray intranasal DAILY 12/06/23 12/06/23 Unknown History
mcg/actuation nasal
spray,suspension
levothyroxine 50 mcg tablet 50 mcg PO MOTUWETHFRSA 12/06/23 12/06/23 Unknown History
losartan 100 mg tablet 100 mg PO DAILY 12/06/23 12/06/23 Unknown History
potassium chloride 20 mEq 20 meq PO DAILY 12/06/23 12/06/23 Unknown History
tablet,extended release
Review of Systems
-
Unable to Obtain full review of systems at this time due to: Acuity
Vitals / Labs / Diagnostic Testing
Vital Signs
Temp Pulse Resp BP Pulse Ox
98.2 F 99 18 111/64 97
12/07/23 08:36 12/07/23 06:30 12/07/23 06:30 12/07/23 06:30 12/07/23 07:30
Lab Data
12/07/23 05:03
Laboratory Results
12/06/23
20:44
pH 7.47 H
pCO2 25 L
pO2 79 L
HCO3 18.2 L
O2 Delivery Level
Microbiology
12/06/23 11:11 Blood/Venous Blood Culture - Preliminary
No Growth in 24 hours- Final report to follow
12/06/23 20:43 Nasal Swab Influenza Types A & B (SOM) - Final
Negative for Influenza A & B, NAAT
Negative results must be combined with clinical observations
and patient history.
Nucleic Acid Amplification test (NAAT)performed on the
[employer] platform.
Diagnostic Testing:
Physical Exam
-
HEENT: Normocephalic and Other (Dry mucous membranes)
Cardiovascular: S1/S2
Respiratory: Clear and Non-Labored Respirations
GI: Soft and Non Distended
Neurology: Other (Left hemiparesis.) and Other (Lethargic)
Skin: Warm
General: Respiratory Distress (n)
Assessment
-
83-year-old woman with past medical history noted, found at home on the floor. Change in mental status, left hemiparesis-CVA suspected. Multiple metabolic derangements found. Severe renal insufficiency, metabolic acidosis, rhabdomyolysis. Not a
candidate for tenecteplase due to timing.
Abrupt onset mental status change-found down at home/left hemiparesis
Shock: Hypovolemic/less likely septic
Leukocytosis on admission possibly hemoconcentrated
Hypokalemia
Urinary retention-Maldonado in place
Anion gap metabolic acidosis-increased lactic acid due to profound volume depletion and shock
Mild rhabdomyolysis-patient was found down at home
Toxic metabolic encephalopathy secondary to above
Acute kidney injury with significant uremia
Right iatrogenic pneumothorax post NG tube placement-status post chest tube 12/07/2023
Conditions present prior admission:
Hypothyroidism
Hypertension
Hyperlipidemia
Assessment and plan:
Critically ill, mental status improved compared to yesterday.
-
Shock: Likely hypovolemia, less likely septic, appears dry on physical exam
Remains on Levophed, wean off as able.
Metabolic acidosis improved on bicarbonate drip.
I will defer to IV fluid management per nephrology
Hopefully can wean off vasopressors to target mean arterial blood pressure 65 mmHg
-
Follow renal function improving after IV fluid resuscitation
Unlikely to be a great candidate for dialysis at this point.
Replete electrolytes as needed.
Repeat BMP later
-
Possible infection: So far cultures negative. Clinically no focal evidence
Leukocytosis improving-suspect hemoconcentration due to volume depletion
On empiric antibiotic, low threshold to stop if all cultures negative
-
Left hemiparesis: Suspect acute CVA. Was not a candidate for tenecteplase due to timing of present
Neurology following
Antiplatelet
Statins
No evidence for atrial fibrillation, continue telemetry monitoring
Eventual echo '
-
Right iatrogenic pneumothorax status post chest tube.
Would reattempt NG tube placement if patient unable to take orals daily chest x-ray
-
DVT prophylaxis-SCDs for now per
Consider pharmacological DVT prophylaxis in the next 24 hours-
-
Critical care statement: A total of 31 minutes of critical care time was provided for this patient today. This includes management of unstable vital signs, evaluation of the patient at bedside, reviewing the patient's pertinent medical records
including ventilator settings, arterial blood gases, radiographs, microbiology, laboratory evaluations and discussion with primary team, critical care nursing, and respiratory therapy.
--- NOTE | 2023-12-07 16:06 | W.PN.NEPH.PH ---
Today's Communication / Plan
-
change to NS
Assessment/Plan
-
IMP:
Suspected septic shock
Acute Kidney Injury
Urinary Retention
mild Rhabdomyolysis
Left Sided Weakness, highly suspicious for acute stroke
A gap met acidosis
Hypothyroidism
HLD
PLan:
A/w left side weakness concern of CVA 12/05
KIMBERLY-baseline cr of 1.2 in 2018
suspect ATN, UA with micro hematuria, alb+
pending serologies and renal US
monitor UOP with johnston-non oliguric currently
cr improving hopefully can avoid HD
met acidosis improved, can change IVF to NS, specially Ph 7.47
cont pressors to keep MAP>65
stable resp status but altered
avoid nephrotoxins, ARB
no emergent indication of HD
reaplce k
s/p right CT for pneumo while placing DHT, remains NPO
on 12/05 spoke with Héctor SheetsELVIRA on phone and explained critical situation
she understands and reports that pt is DNR-no CPR or vent
she however not able to decide on AUTO GLASS TECHNICIAN needs, she wants to discuss with her sister
d/w nursing
high risk encounter
-
-
Date of Service: December 07, 2023
CC / HPI / ROS
-
Chief Complaint:
KIMBERLY
History of Present Illness:
cr improving to 4.7, bun 150
k low 3.4
BP stable on pressor
ck down 1290
DHT placement resulted in pneumothx now s/p CT today
wbc improving
Review of Systems:
sedated post procedure
per staff still dysarthric
no fever, non oliguric
Labs
-
Labs:
WBC 19.5 10^3/uL (4.8-10.8) H 12/07/23 05:03
RBC 5.57 10^6/uL (4.20-5.40) H 12/07/23 05:03
Hgb 14.1 g/dL (12.0-16.0) D 12/07/23 05:03
Hct 42.2 % (37.0-47.0) 12/07/23 05:03
Plt Count 257 10^3/uL (130-400) D 12/07/23 05:03
eGFR 8.84 12/07/23 05:03
Albumin 4.0 g/dl (3.5-5.0) 12/06/23 11:11
Physical Exam
-
Vital Signs:
Vital Signs
Temp Pulse Resp BP Pulse Ox
98.4 F 96 16 93/44 98
12/07/23 14:02 12/07/23 14:15 12/07/23 14:15 12/07/23 14:00 12/07/23 14:15
Cardiovascular:: Regular rate and rhythm
Respiratory:: Bilateral: CTA (decreased)
Lung Excursion:: Normal
Abdomen:: Nontender and Soft
Extremity Edema:: None: Bilateral:
Johnston Catheter: Yes
[2023-12-07] MEDS: NSS 1000 IV (16:37)
[2023-12-07] MEDS: LIPITOR PO (16:42)
--- NOTE | 2023-12-07 17:53 | PTOTSP ---
ST Follow-Up
Pt continues to present with a moderate-severe pharyngeal dysphagia related to acute encephalopathy.
Recommendations:
- Continue STRICT NPO status - no oral meds, no ARHP.
- Continue with the utmost aspiration precautions including HOB raised as often as possible and oral care with suctioning QID.
- Consider re-attempting dobhoff.
- GAS APPLIANCE SERVICER will continue to f/u at a high priority level.
--- NOTE | 2023-12-07 18:32 | PTCARENOTE ---
Patient return from [facility]AD approx 1245. Arousable but falling off to sleep quickly. Sinus tach on monitor, pulse ox 95% on 2L nc upon return with clear lung weller in all lung weller. Rt upper lung field absent lung sounds prior to chest tube. Pt
appers more comfortable this afternoon, slept soundly for awhile and now awakens to verbal stimuli, can tell me she is [facility] and give me her correct age and where this am she was unable to answer correctly. Rt upper extremity
fidgets and holds onto remote though she is unable to use it. pt on IMU level of care and frequent assessing. Her left upper extremity has minimal movement of fingers and hands, cannot hold off bed. left lower extremity has movement but cannot hold
of bed. Pt seen by Speech therapy and will remain NPO until tomorrow and be seen again. MRI not completed today, Call to MRI dept and they were attempting to clear patient for test through her POA (niece Caron who lives in [place]). Pt with flushed
skin which has remained same throughout shift. Maldonado patent for dark yellow urine. IVF changed per nephrology order. Chest tube remains intact to -20cm wall suction, no output. Levophed continues at rate of 2mcg/min to maintain SBP >90. Attmept to
wean to 1mcg, unsuccessful . Current SBP 91
[2023-12-07 18:42] LABS: Calcium 8.4 mg/dl (8.4-10.2); Carbon Dioxide 28 mmol/L (22-30); Chloride 105 mmol/L (98-107); Estimated Creatinine Clearance 14 ml/min; Glucose 97 mg/dl (70-99); Potassium 3.5 mmol/L (3.5-5.1); Sodium 141 mmol/L (135-145); eGFR 14.56
--- NOTE | 2023-12-07 18:42 | PTCARENOTE ---
This RN spoke with henrry Caron in [place] and provided update on pt LOC. Henrry is hoping to be visiting here on Friday. Pt's neighbor Beth who is the one who found her at home was here to visit right after IRAD procedure do pt was too drowsy to
interact at that time.
[2023-12-07 19:01] LABS: Blood Urea Nitrogen 138 mg/dl (7-17)
--- NOTE | 2023-12-07 20:42 | PTCARENOTE ---
Received pt at change of shift. NIHSS was 16 at change of shift with marked improvement in left arm movement. Pt answering appropriately. oriented to self and place. Pt now able to lift and move left arm. Chest tube in place with no tidaling
and no output. Lung sounds CTA b/l. 96% on 2L NC. Levo gtt running at 2mcg/hr to maintain SBP >90 per order through right Midline. pt resting in bed with call grullon in reach.
[2023-12-08] VITALS (53 sets, daily range): BP systolic 81–142; BP diastolic 33–111; PULSE 105; O2SAT 93; BMI 30.7
[2023-12-08] MEDS: ZOSYN 50 IV ×3 (04:26→21:06)
[2023-12-08] MEDS: NSS 1000 IV (04:26)
[2023-12-08 04:43] LABS: Hematocrit 38.5 % (37.0-47.0); Hemoglobin 12.7 g/dL (12.0-16.0); Mean Corpuscular Hgb 25.2 pg (27.0-31.0); Mean Corpuscular Volume 76.5 fL (81.0-99.0); Mean Platelet Volume 10.4 fL (7.4-10.4); Platelet Count 220 10^3/uL (130-400); Red Blood Cell Count 5.03 10^6/uL (4.20-5.40); Red Cell Dist. Width 14.8 % (11.5-14.5); White Blood Cell Count 15.1 10^3/uL (4.8-10.8)
[2023-12-08 05:14] LABS: ALT (SGPT) 24 U/L (0-35); AST (SGOT) 56 U/L (14-36); Albumin 2.5 g/dl (3.5-5.0); Alkaline Phosphatase 92 U/L (38-126); Blood Urea Nitrogen 117 mg/dl (7-17); Calcium 8.7 mg/dl (8.4-10.2); Carbon Dioxide 26 mmol/L (22-30); Chloride 110 mmol/L (98-107); Creatine Phosphokinase 449 U/L (30-135); Estimated Creatinine Clearance 20 ml/min; Glucose 91 mg/dl (70-99); Potassium 3.5 mmol/L (3.5-5.1); Sodium 147 mmol/L (135-145); Total Bilirubin 1.1 mg/dl (0.2-1.3); eGFR 20.83
[2023-12-08 05:17] LABS: Vancomycin Random 10.9 ug/ml
--- NOTE | 2023-12-08 05:33 | PTCARENOTE ---
Pt had an 8 beat run of vtach. Notified [employer]. Pt has no hx of vtach. EKG obtained.
[2023-12-08 07:58] LABS: Anisocytosis Slight; Band Neutrophils 1 % (0-3); Lymphocytes 5 % (20-51); Monocytes 2 % (2-9); Normal RBC Morphology No; Platelets Checked Yes; Segmented Neutrophils 92 % (42-75)
[2023-12-08 07:59] LABS: Total Cells Counted 100
--- NOTE | 2023-12-08 08:01 | PTCARENOTE ---
Recieved call from MRI to see Pt; BP 85/33 with MAP = 49; Held off on transport and Pt restarted on 1 mcg Levophed. NIH = 16 with improved strength noted in B/L uppper extremities. Follows simple commands and can answer simple questions. AAO x
1-2. Will continue to monitor and assess.
[2023-12-08] MEDS: ASPIRIN 300 MG RECTAL (08:06)
--- NOTE | 2023-12-08 08:27 | VATNOTE ---
Patient with reported previous infiltrate to left wrist. Area appears improved with minimal redness noted.
--- NOTE | 2023-12-08 08:49 | W.PN.NEURO.1 ---
Addendum entered and electronically signed by Bart Alvarado MD 12/08/23 10:25:
Studies reviewed.
I have personally examined the patient. I reviewed and agree with the CLINICAL SALES CONSULTANT's Note.
My addenda:
Awake, alert, interactive. No acute distress.
Speech thick and reduced.
Follows 2-step requests unable to perform. No tremor.
Extra-ocular movements now able to look to midline.
Hearing intact to normal conversational volume.
Normal UE movements bilaterally.
Neck: full ROM.
Chest: no dyspnea
Heart: no JVD
Ext: (-) Clubbing, (-) Cyanosis, (-) Edema
IMPRESSIONS/RECOMMENDATIONS:
Abrupt onset of left-sided weakness with reduced responsiveness; patient improved today
Check MRI when possible
Provide clopidogrel when possible, goal would be within 21 days of onset of symptoms and then discontinue
Continue aspirin 300 mg by rectum, changed to 81 mg when possible
Carotid ultrasound
Will continue to follow peripherally..
Original Note:
Documented by User: Martha Naidu NP 12/08/23 09:30
Today's Communication / Plan
-
.
Neuro Assessment/Plan
Assessment
Acute onset left upper and lower extremity weakness with reduced responsiveness
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
Due to unclear time of onset of symptoms, likely greater than 6 hours based on metabolic disturbances, patient not a candidate for either tenecteplase or for arterial thrombectomy
Plan
Continue aspirin 300 mg per rectum, change to 81 mg by mouth when possible
Consider initiation of clopidogrel when patient can clearly take by mouth
Goal normotension
Check MRI of brain when patient stable
Carotid ultrasound ordered/pending
TTE ordered/pending per primary team
LDL goal <70. LDL is 43. Restart home atorvastatin 10 mg when able to take by mouth.
Goal normoglycemia, hbA1c is 5.4.
NIHSS and neurological checks per unit guidelines.
Medical educational materials to be provided
Supportive care for metabolic disturbances
PT/OT/ST evaluations
DVT prophylaxis
Will follow pending results.
Subjective/Objective
Subjective Data
Date of Service: December 08, 2023
No acute events overnight. Patient denies any pain, offers no complaints. ROS limited due to confusion.
Objective Data
Vital Signs
Temp Pulse Resp BP Pulse Ox
98.6 F 95 21 100/39 96
12/08/23 03:37 12/08/23 06:37 12/08/23 06:37 12/08/23 06:37 12/08/23 06:37
Lab Results
12/08/23 04:25
12/08/23 04:20
Sodium 147 mmol/L (135-145) H 12/08/23 04:20
Potassium 3.5 mmol/L (3.5-5.1) 12/08/23 04:20
BUN 117 mg/dl (7-17) H* 12/08/23 04:20
Glucose 91 mg/dl (70-99) 12/08/23 04:20
Calcium 8.7 mg/dl (8.4-10.2) 12/08/23 04:20
LDL Cholesterol, Calc 43 mg/dl 12/07/23 05:03
Patient Allergies
lisinopril [From Prinivil] Allergy (Verified 12/06/23 11:02)
coughing
Chocolate Allergy (Uncoded 12/06/23 11:02)
Mouth sores
LDL Level: <70, continue statin
Review of Systems
-
Unable to obtain full review of systems at this time due to: Other (confusion)
History Source: Patient
Physical Exam
-
General: No Apparent Distress
Eyes: No Ptosis and PERRLA
HEENT: Normocephalic and Atraumatic
Neck: Full Range of Motion
Respiratory: No Dyspnea and Other (Chest tube in place)
GI: Non-distended
Extremities: No Clubbing, No Cyanosis and No Edema
Psych: Confused
Extended Neurological Exam
Attention Span & Concentration: Awake, Alert, Interactive and Severe Difficulty with 2 Step Request
Memory: Reduced (AAOx3, forgetful to situation)
Tremor: Hand Tremor Absent and Head Tremor Absent
Involuntary Movement: None
Speech: Dysarthric
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
Cranial Nerves III, IV, : Extraocular Movement: Reduced (right gaze preference, can cross midline)
Cranial Nerve VII: Facial Symmetry: Normal Facial Symmetry
Cranial Nerve VIII: Hearing: Unremarkable Hearing to Normal Conversational Volume
Cranial Nerves IX, X: Palate Movement: Palate Elevation Symmetric
Cranial Nerve XII: Tongue Protusion: Midline
Muscle Strength, Overall: Other (LUE 4/5, RUE 5-/5, LLE 1/5, RLE 4/5)
Pronator Drift: Drift in Left Upper Extremity
Touch Sensation: Unable to Assess
Coordination: Unable to Assess
Babinski Sign: Absent Bilaterally
Modified Loving Score (MRS)
-
Modified Abe Scale (mRS): Moderately severe disability. Unable to attend to bodily needs/walk.
Score: 4
Data Reviewed
-
CT Head: Report Reviewed and Image Reviewed
MRI Head: Pending
Carotid Ultrasound: Pending
Echocardiogram: Pending
Labs: Report Reviewed
Lipid Profile: Report Reviewed
HgbA1C: Report Reviewed
Reviewed with: Physician, Nurse and Patient
Medications
-
Active Medications
Generic Name Dose Route Start Last Admin
Trade Name Freq PRN Reason Stop Dose Admin
Acetaminophen 650 mg 12/06/23 16:07
Acetaminophen 650 Mg Rectal Suppository RECTAL 01/03/24 16:06
Q4HPRN PRN
CLEANING, mild pain, or temp >100.4F
Acetaminophen 650 mg 12/06/23 16:07
Acetaminophen 325 Mg Tablet PO 01/03/24 16:06
Q4HPRN PRN
CLEANING, mild pain, or temp >100.4F
Aspirin 300 mg 12/07/23 08:00 12/08/23 08:06
Aspirin 300 Mg Rectal Suppository RECTAL 01/04/24 07:59 300 mg
DAILY ART Administration
Atorvastatin Calcium 10 mg 12/06/23 18:00 12/07/23 16:42
Atorvastatin (Lipitor) 10 Mg Tablet PO 01/03/24 17:59 Not Given
QPM ART
Piperacillin Sod/Tazobactam Sod 2.25 grams in 50 mls @ 100 mls/hr 12/06/23 20:00 12/08/23 04:26
Zosyn IV 50 mls
Q8H ART Administration
Vancomycin HCl 1 each/ Device 0 mls @ 0 mls/hr 12/06/23 18:00
IV
PER PROTOCOL ART
Protocol
As Directed
Norepinephrine Bitartrate 4 mg in 250 mls @ 0 mls/hr 12/08/23 02:00
Levophed IV
PER PROTOCOL ART
Protocol
Per Protocol
Dextrose 1,000 mls @ 80 mls/hr 12/08/23 09:00 12/08/23 09:15
D5w IV 1,000 mls
.[id number] ART Administration
Vancomycin HCl 1 gram in 200 mls @ 200 mls/hr 12/08/23 12:00
Vancocin IV 12/08/23 12:59
ONCE ONE
Sodium Chloride 0 flush 12/06/23 16:00
Sodium Chloride 0.9% (Flush) Syringe IV 01/03/24 15:59
PER PROTOCOL ART
Home Medications
�Medication �Instructions �Recorded
atorvastatin 10 mg tablet 10 mg PO DAILY 12/06/23
fluticasone propionate 50 2 spray intranasal DAILY 12/06/23
mcg/actuation nasal
spray,suspension
levothyroxine 50 mcg tablet 50 mcg PO MOTUWETHFRSA 12/06/23
losartan 100 mg tablet 100 mg PO DAILY 12/06/23
potassium chloride 20 mEq 20 meq PO DAILY 12/06/23
tablet,extended release
NIH Stroke Score
Subsequent NIH Scale
Date of Subsequent NIH Scale: 12/08/23
Time of Subsequent NIH Scale: 08:45
NIH Stroke Score
Level of Consciousness: 0 - Alert
LOC Questions: 2-Neither correct
LOC Commands: 0-Performs both correctly
Best Horizontal Gaze: 1-Partial gaze palsy
Visual Rangel: 2=Full hemianopia
Facial Palsy: 0=Normal, symmetrical
Motor - Right Arm: 0=No drift 10 seconds
Motor - Left Arm: 1=Drift < 10 seconds
Motor - Right Le-Drift < 5 seconds
Motor - Left Le-None vs. gravity
Limb Ataxia: 0-Absent
Sensation: 1-Mild loss
Best Language: 0-No aphasia
Dysarthria: 1-Mild slurring
Extinction and Inattention: 2-Total susanne inattention
Total Score:: 14
Modified Abe (mRS) Score
Modified Loving Scale (mRS): Moderately severe disability. Unable to attend to bodily needs/walk.
Score: 4

Documented by User: Bart Alvarado MD 12/08/23 09:59
Modified Loving Score (MRS)
-
Score: 4
NIH Stroke Score
NIH Stroke Score
Total Score:: 14
Modified Loving (mRS) Score
Score: 4
--- NOTE | 2023-12-08 09:07 | PHA.VAN.FU ---
Vancomycin Assessment / Plan
- Assessment
Renal Function: SCR Decreasing
WBC's are: Trending Down
In the past 24 hrs, patient has been: Afebrile
Concomitant Antimicrobials: piperacillin/tazobactam
- Assessment - Therapeutic Drug Monitoring
Random Level: 10.9 - drawn ~23H after previous level of 18.4
Calculated ke: 0.0225
Calculated half life (H): 30.8
- Dosing Plan
Dosing by Level: Re-dose today (Vanc 1000mg)
Dosing Comments: prolonged half-life but SCR not stable and improving
- Monitoring Plan
Random Level: 12/08 0600
- Follow Up
Pharmacy will continue to follow.
Vancomycin Follow UP
- -
Patient Age: 83
Patient Sex: Female
Vancomycin Day #: 3
Indication: Bacteremia
Requesting Provider: Dr. Bender
Pertinent Antimicrobial Allergies:
no pertinent antibiotic allergies
Height / Weight:
Height 5 ft 4 in
Actual Weight 81.1 kg
- Vital Signs / Lab Results
Temp Pulse Resp BP Pulse Ox
98.6 F 95 21 100/39 96
12/08/23 03:37 12/08/23 06:37 12/08/23 06:37 12/08/23 06:37 12/08/23 06:37
Lab Results - Hematology
12/06/23 12/07/23 12/08/23
11:11 05:03 04:25
WBC 32.4 H 19.5 H 15.1 H
Band Neutrophils 3 1
Lab Results - Chemistry
12/06/23 12/07/23 12/07/23
11:11 05:03 18:21
BUN 159 H* 150 H* 138 H*
Creatinine 6.8 H* 4.7 H* 3.1 H
Estimated Creat Clear 10 14
Albumin 4.0
12/08/23
04:20
BUN 117 H*
Creatinine 2.3 H
Estimated Creat Clear 20
Albumin 2.5 L D
12/06/23 12/07/23
11:11 01:44
Lactic Acid 3.6 H 1.2
Microbiology Results
12/06/23 19:32 MRSA Screen - Final
Nose No Methicillin Resistant Staphylococcus aureus isolated.
12/06/23 18:25 Blood Culture - Preliminary
Blood/Venous No Growth in 24 hours- Final report to follow
12/06/23 11:11 Blood Culture - Preliminary
Blood/Venous No Growth in 24 hours- Final report to follow
12/06/23 20:43 Influenza Types A & B (SOM) - Final
Nasal Swab Negative for Influenza A & B, NAAT
Negative results must be combined with clinical observations
and patient history.
Nucleic Acid Amplification test (NAAT)performed on the
[employer] platform.
Therapeutic Drug Monitoring
Random Vancomycin 10.9 ug/ml 12/08/23 04:20
--- NOTE | 2023-12-08 09:10 | PTOTSP ---
Addendum entered and electronically signed by ST Jaqueline 12/08/23 10:35:
Pt also seen for dysphagia tx. Oral care completed with use of suction toothbrush. Sore hardened area noted on anterior R lingual tip. P.O. trials of ice chips, thin water via pipetted straw, mildly thick liquids via tsp, and puree provided.
Cough noted, at times slightly delayed, with all P.O. intake.
Recommend:
(1) NPO
(2) Allow ice chips sparingly post oral care given supervision per Aspiration Risk Hydration Protocol (ARHP)
(3) Non-oral meds
(4) VSE
(5) VICE PRESIDENT OF MANUFACTURING to continue to follow
Original Note:
Speech-Language Pathology
Pt seen for speech/language evaluations. Mild dysarthria noted characterized by imprecise consonant production. Incoordinated diadochokinetic (DDK) rates noted with poor breath support noted for speech. Administered Quick Aphasia Battery (QAB),
form 1. However, many subtests negatively affected by significant visual difficulties. R gaze preference noted with minimal ability to track VICE PRESIDENT OF MANUFACTURING to L. Unable to see stimuli unless on far R side. Question field cut as well, as only seeing
portions of pictures in R field at times. Overall QAB score 3.79, indicating severe overall deficits; however, this was negatively affected by vision issues. Other subtests affected by visual issues included word comprehension (0.00= severe);
word-finding (3.75= severe); reading (0.00= severe). Accurate subtests, which did not rely on vision, included sentence comprehension (0.00= severe); grammatical construction (8.00= mild); speech motor programming (10.00= WNL); repetition (6.25=
mod).
[2023-12-08] MEDS: D5W 1000 IV ×2 (09:15→22:42)
--- NOTE | 2023-12-08 09:22 | W.PN.HOSP.TC ---
Today's Communication/Plan
-
see bold
Assessment / Plan
Assessment / Plan
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 Await brain MRI. Neurology following. 12/07 VSE shows aspiration. Continue strict NPO. Start tube feeds per nutrition recommendation. GI to place Dobbhoff tube. No evidence of atrial
fibrillation on EKG so far.
Acute TME -likely multifactorial etiology including acute stroke, acute kidney injury, volume depletion, etc. Somewhat more awake and alert today but still encephalopathic.
KIMBERLY -likely due to profound volume depletion, acute urinary retention, etc. Creatinine coming down. Appreciate nephrology input, continue IV fluids, hold losartan.
Hypovolemic shock -on low-dose Levophed. Shock due to profound volume depletion. Clinically doubt sepsis. Wean down as able. Blood pressure improved.
Right iatrogenic pneumothorax status post chest tube 12/07/23. Appreciate pulmonology input, for repeat chest x-ray, if doing well can consider waterseal
Hypokalemia -replete prn. Magnesium is normal.
Acute urinary retention -Maldonado catheter inserted in the emergency room. Maintain for now.
High anion gap metabolic acidosis -likely due to KIMBERLY, starvation, etc. Trace urine ketones noted. Bicarbonate now normal. Resolved.
Lactic acidosis -likely due to profound volume depletion, KIMBERLY. Lactate normalized.
Mild traumatic rhabdomyolysis -due to fall, stroke, immobility. IV fluids as above. CPK trending down.
Hypothyroidism -TSH 1.22. Resume levothyroxine when able.
Essential hypertension -hypotension related to profound volume depletion, improving with IV fluids. Hold losartan for KIMBERLY.
Hyperlipidemia -on atorvastatin.
DVT prophylaxis�start subcu heparin
DNR
Physical exam:
Gen-frail, elderly, NAD
HEENT-NC, AT, anicteric, dry oral mucous membranes
Neck-supple
CV-reg, no M, +S1/S2
Lungs-clear B/L
Abd-soft, NT, ND
Ext-no edema
Musculoskeletal-no cyanosis, clubbing
Skin-warm and dry
Booyj-hyar-rpnkm neglect, left hemiparesis
Anticipated Discharge: > 48 hours
Subjective/Interval History
-
Date of Service: December 08, 2023
Patient sleeping. No fever, no vomiting.
Objective Data
-
Labs:
Laboratory Results
12/08/23 12/08/23
04:20 04:25
WBC 15.1 H
Hgb 12.7
Hct 38.5
Plt Count 220
Sodium 147 H
Potassium 3.5
Chloride 110 H
Carbon Dioxide 26
BUN 117 H*
Creatinine 2.3 H
Glucose 91
Calcium 8.7
Total Bilirubin 1.1
AST 56 H
ALT 24
Alkaline Phosphatase 92
Vital Signs:
Vital Signs
Temp Pulse Resp BP Pulse Ox
98.6 F 95 21 100/39 96
12/08/23 03:37 12/08/23 06:37 12/08/23 06:37 12/08/23 06:37 12/08/23 06:37
I&O
12/07/23 12/08/23 12/09/23
06:59 06:59 06:59
Intake Total 1600 / 1600 2185 / 2185
Output Total 900 / 900 1505 / 1505
Balance 700 / 700 680 / 680
--- NOTE | 2023-12-08 09:49 | W.PN.PUL3 ---
Today's Communication / Plan
-
Repeat CXR today
If doing well, can likely place to waterseal overnight
No leak in tube/chamber
VSE planning today, speech following
PT/OT
Assessment
-
83-year-old woman with past medical history noted, found at home on the floor. Change in mental status, left hemiparesis-CVA suspected. Multiple metabolic derangements found. Severe renal insufficiency, metabolic acidosis, rhabdomyolysis. Not a
candidate for tenecteplase due to timing.
Abrupt onset mental status change-found down at home/left hemiparesis
Shock: Hypovolemic/less likely septic
Leukocytosis on admission possibly hemoconcentrated
Hypokalemia
Urinary retention-Maldonado in place
Anion gap metabolic acidosis-increased lactic acid due to profound volume depletion and shock
Mild rhabdomyolysis-patient was found down at home
Toxic metabolic encephalopathy secondary to above
Acute kidney injury with significant uremia
Right iatrogenic pneumothorax post NG tube placement-status post chest tube 12/07/2023
Conditions present prior admission:
Hypothyroidism
Hypertension
Hyperlipidemia
Plan
Shock: Likely hypovolemia, less likely septic, resolved
Off pressors
Right iatrogenic pneumothorax status post chest tube 12/07/23
Repeat CXR today
If doing well, can consider placing on waterseal
Metabolic acidosis improved on bicarbonate drip.
IV fluid management per nephrology
Follow renal function improving after IV fluid resuscitation
Unlikely to be a great candidate for dialysis at this point.
Replete electrolytes as needed.
Possible infection: So far cultures negative. Clinically no focal evidence
Leukocytosis improving-suspect hemoconcentration due to volume depletion
On empiric antibiotic, low threshold to stop if all cultures negative
Left hemiparesis: Suspect acute CVA. Was not a candidate for tenecteplase due to timing of present
Neurology following
Antiplatelet/Statins
No evidence for atrial fibrillation, continue telemetry monitoring
Eventual echo/pending
Speech following
VSE planning
DVT prophylaxis-SCDs for now per
Consider pharmacological DVT prophylaxis in the next 24 hours
Diagnostic Data
CXR 12/07/23- There is a moderate right pneumothorax. Dobbhoff tube tip is in the right lower chest and should be removed.
CXR 12/06/23- LARGE HIATAL HERNIA with adjacent mild chronic subpleural scarring and subsegmental atelectasis in the basilar segments of the lower lobes of both lungs.
Subjective Data
-
Date of Service:
Date of Service: December 08, 2023
Chief Complaint: Pulmonary Follow Up
Subjective:
no complaints, remains on room air
VSE completed
Chest tube to suction, off for VSE
Objective Data
Data Reviewed
Vital Signs / I&O / Oxygen:
Vital Signs
Temp Pulse Resp BP Pulse Ox
98.6 F 95 21 100/39 96
12/08/23 03:37 12/08/23 06:37 12/08/23 06:37 12/08/23 06:37 12/08/23 06:37
Intake and Output
12/07/23 12/08/23 12/09/23
06:59 06:59 06:59
Intake Total 1600 / 1600 2185 / 2185
Output Total 900 / 900 1505 / 1505
Balance 700 / 700 680 / 680
SaO2 96
Nasal Cannula flow liters per 2
minute
Physical Exam
General: Comfortable and Other (NAD)
HEENT: Normocephalic, Anicteric and Other (dry MM, poor oral hygiene)
Cardiovascular: S1-S2, Regular Rhythm and Peripheral Edema
Respiratory: Clear, Non-Labored Respirations and Chest Tube (no leak/on suction)
GI: Soft, Non Distended and Non Tender
Neurology: Awake, Alert, Oriented (to self) and Other (cognitive dysfunction, answers simple questions)
Skin: Warm and Dry
Labs/Micro/Reports
Lab Data
12/08/23 04:25
12/08/23 04:20
Microbiology
12/06/23 19:32 Nose MRSA Screen - Final
No Methicillin Resistant Staphylococcus aureus isolated.
12/06/23 18:25 Blood/Venous Blood Culture - Preliminary
No Growth in 24 hours- Final report to follow
12/06/23 11:11 Blood/Venous Blood Culture - Preliminary
No Growth in 24 hours- Final report to follow
12/06/23 20:43 Nasal Swab Influenza Types A & B (SOM) - Final
Negative for Influenza A & B, NAAT
Negative results must be combined with clinical observations
and patient history.
Nucleic Acid Amplification test (NAAT)performed on the
[employer] platform.
[2023-12-08] MEDS: VANCOCIN 200 IV (13:10)
--- NOTE | 2023-12-08 14:18 | PTOTSP ---
Video Swallow Study
Patient presents with mild-moderate oral and moderate-severe pharyngeal stages of swallowing. Aspiration with an ineffective cough response occurred with thin liquids via tsp. Deep laryngeal penetration occurred with mildly thick and moderately
thick liquids. Patient could not clear moderate pharyngeal residue with puree. Aspiration risk is elevated. Etiology of dysphagia is likely suspected CVA. Please see patient care note for full details of penetration/aspiration and swallowing
physiology.
Recommend:
1. NPO - consider non-oral means of nutrition/hydration
2. Medications - via non-oral means preferred; otherwise essential meds which cannot be given non-orally crushed in sparing amounts of puree with double swallows and cues to cough
3. Oral care 3-5x daily with suctioning
4. Aspiration Risk Hydration Protocol (ARHP) - ice chips sparingly post oral care with supervision
5. Dysphagia therapy at the acute care level for patient/family education and rehabilitation.
--- NOTE | 2023-12-08 15:08 | W.PN.UPDATE ---
Update Note
Progress Note Update
Try to pass Dobbhoff tube, though each time felt resistance then patient coughing. Given recent pneumothorax this was not attempted further. Would recommend alternative means of nutrition if needed, if still no improvement in the next few days
then would consider PEG tube.
--- NOTE | 2023-12-08 15:54 | WOUNDNOTE ---
RIGHT HIP- blanchable red
--- NOTE | 2023-12-08 16:08 | CM ---
Addendum entered by Pita Brewer RN 12/08/23 16:23:
Seen by wound care nurse.
Original Note:
Patient with Dx Acute stroke -with left hemiparesis and visual field defects, Acute TME, Hypovolemic shock, pneumothorax. O2 2L. Chest tube placed. Levophed gtt. Await brain MRI. 12/07 VSE shows aspiration - NPO. Dobhoff tube unable to be
placed. Per nurse; confused. PT recommends acute rehab. OT Eval pending.
Spoke with Caron Bella, niece who is POA, residing in [place];
the patient had been residing alone in her double wide mobile home with 3 CHETNA.
She had been independent in ADLs and ambulation using her SPC when her arthritis flares.
Niece says she spoke with the patient a few days before admission and she seemed well.
No prior VN or SNF.
Niece cannot confirm PCP or pharmacy.
The niece plans on driving up from [place] to her sister Kristy's house in [facility] and then will be here by Friday.
The other contact in the chart is the neighbor Beth who notified Caron that the patient was brought to the hospital. She does not feel that Beth needs to be given any information. Assured her that Caron is primary contact in chart.
Plan follow patient's progress with PT and speak with family about rehab when less acute.
Plan TBD.
--- NOTE | 2023-12-08 16:24 | CM ---
Patient with Dx Acute stroke -with left hemiparesis and visual field defects, Acute TME, Hypovolemic shock, pneumothorax. O2 2L. Chest tube placed. Levophed gtt. Await brain MRI. 12/07 VSE shows aspiration - NPO. Dobhoff tube unable to be
placed. Per nurse; confused. PT recommends acute rehab. OT Eval pending. Seen by wound care nurse.
Met with patient who was able to say yes when asked if she knew she was in the hospital, but otherwise was unable to converse.
Spoke with Caron Bella, niece who is POA, residing in [place];
the patient had been residing alone in her double wide mobile home with 3 CHETNA.
She had been independent in ADLs and ambulation using her SPC when her arthritis flares.
Niece says she spoke with the patient a few days before admission and she seemed well.
No prior VN or SNF.
Niece cannot confirm PCP or pharmacy.
The niece plans on driving up from [place] to her sister Kristy's house in [facility] and then will be here by Friday.
The other contact in the chart is the neighbor Beth who notified Caron that the patient was brought to the hospital. She does not feel that Beth needs to be given any information. Assured her that Caron is primary contact in chart.
Plan follow patient's progress with PT and speak with family about rehab when less acute.
Plan TBD.
--- NOTE | 2023-12-08 16:26 | WOUNDNOTE ---
[facility] RN note: Patient admitted with DTI of sacrum, left heel and upper back. Stage 1 to right heel.
See H&P for complete history.
PMH: HTN, hyperlipidemia, hypothyroidism, presenting with left sided weakness/acute CVA, hypovolumeic shock, pneumothorax, NPO- possible plan for PEG, TBD
Wound Location and type/assessment: Patient admitted with:
Appetite:
Pressure redistribution devices in place:
Plan:
Will confirm orders with hospitalist and update nurse.
Updated care plan and will follow as needed.
Note to case management of equipment requested for discharge:
Recommend follow up at wound care center upon discharge.
--- NOTE | 2023-12-08 16:39 | WOUNDNOTE ---
[facility] RN note: Patient admitted with DTI of sacrum, left heel and upper back. Stage 1 to right heel.
See H&P for complete history.
PMH: HTN, hyperlipidemia, hypothyroidism, presenting with left sided weakness/acute CVA, hypovolemic shock, pneumothorax, NPO- possible plan for PEG.
Wound Location and type/assessment: Patient admitted with DTI of sacrum, left heel and upper back. Stage 1 to right heel. It is not known how long patient was on the ground after fall. Sacrum is deep purple and has scattered open areas. This wound
is evolving and is likely to worsen and open. Left heel and upper back DTI intact. Right heel with stage 1 PI. Patient unable to converse, but appeared to tolerate wound care well. Assessment and continence care completed with RNGuicho.
Appetite: NPO
Pressure redistribution devices in place: Versa Care Air
Plan: Local wound care to sacrum with Calazime and ABD PRN. An additional air cushion applied under sacrum for additional off-loading. Heels off-loaded on pillows and no-sting barrier and adhesive foam applied. Silicone foam and off-loading to
upper back DTI. Will defer to hospitalist for need of surgical consult. Patient has several co-morbidities and is NPO. Wounds are likely to worsen even with optimal care. Will confirm orders with hospitalist and update nurse.
Updated care plan and will follow as needed.
Note to case management of equipment requested for discharge: Air Mattress
Recommend follow up at wound care center upon discharge.
--- NOTE | 2023-12-08 16:49 | W.PN.NEPH.PH ---
Today's Communication / Plan
-
- iniated on D5W for hypernatremia
- Cr continues to downtrend
Assessment/Plan
-
IMP:
Suspected septic shock
Acute Kidney Injury
Urinary Retention
mild Rhabdomyolysis
Left Sided Weakness, highly suspicious for acute stroke
A gap met acidosis
Hypothyroidism
HLD
PLan:
A/w left side weakness concern of CVA 12/05
KIMBERLY-baseline cr of 1.2 in 2019, peak 6.8
suspect ATN, UA with micro hematuria, alb+
C4 slightly high, LENNOX, ANCA pending. KUS with left renal cyst otherwise normal
monitor UOP with johnston-non oliguric currently
cr improving hopefully can avoid HD
met acidosis resolved
initiated on D5W today for hypernatremia
cont pressors to keep MAP>65
chest tube in place for PTX after DHT
avoid nephrotoxins, ARB
no emergent indication of HD
replace K PRN
on 12/05 Dr. De Leon spoke with Héctor Machado on phone and explained critical situation
she understands and reports that pt is DNR-no CPR or vent
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
d/w nursing
-
-
Date of Service: December 08, 2023
CC / HPI / ROS
-
Chief Complaint:
KIMBERLY
History of Present Illness:
cr improving to 2.3, bun 117
k low 3.5
BP stable on pressor
ck down 1290
DHT placement resulted in pneumothx now s/p CT today
wbc improving
Review of Systems:
sedated post procedure
per staff still dysarthric
no fever, non oliguric
Labs
-
Labs:
WBC 15.1 10^3/uL (4.8-10.8) H 12/08/23 04:25
RBC 5.03 10^6/uL (4.20-5.40) 12/08/23 04:25
Hgb 12.7 g/dL (12.0-16.0) 12/08/23 04:25
Hct 38.5 % (37.0-47.0) 12/08/23 04:25
Plt Count 220 10^3/uL (130-400) 12/08/23 04:25
Sodium 147 mmol/L (135-145) H 12/08/23 04:20
Potassium 3.5 mmol/L (3.5-5.1) 12/08/23 04:20
Chloride 110 mmol/L (98-107) H 12/08/23 04:20
Carbon Dioxide 26 mmol/L (22-30) 12/08/23 04:20
BUN 117 mg/dl (7-17) H* 12/08/23 04:20
Creatinine 2.3 mg/dL (0.6-1.0) H 12/08/23 04:20
eGFR 20.83 12/08/23 04:20
Glucose 91 mg/dl (70-99) 12/08/23 04:20
Calcium 8.7 mg/dl (8.4-10.2) 12/08/23 04:20
Albumin 2.5 g/dl (3.5-5.0) L D 12/08/23 04:20
Physical Exam
-
Vital Signs:
Vital Signs
Temp Pulse Resp BP Pulse Ox
98.9 F 82 12 118/63 97
12/08/23 07:40 12/08/23 13:30 12/08/23 13:30 12/08/23 13:30 12/08/23 13:30
Cardiovascular:: Regular rate and rhythm
Respiratory:: Bilateral: Coarse
Lung Excursion:: Normal
Abdomen:: Distended, Nontender and Soft
Bowel Sounds:: Normal
Extremity Edema:: None: Bilateral:
Johnston Catheter: Yes
[2023-12-08] MEDS: LIPITOR PO (16:53)
[2023-12-08] MEDS: HEPARIN 5000 UNITS SC (21:06)
--- NOTE | 2023-12-08 21:23 | PTCARENOTE ---
Received pt at change of shift. NIHSS at start of shift was 13; improvement from previous shifts. Pt is oriented to self and place and is arousable from sleep. Oral and lip care provided. Chest tube in place and to wall suction at -20. Levo
gtt has been off since prior shift; unable to confirm time of when gtt was stopped. SBP maintaining >90. D5W currently running at 80ml/hr through right midline. Pt resting in bed with call grullon in reach.
[2023-12-09] VITALS (34 sets, daily range): BP systolic 106–142; BP diastolic 54–85; PULSE 82–90; O2SAT 94–95; BMI 30.3
[2023-12-09 01:20] LABS: Myeloperoxidase Antibody 0 AU/mL (0-19); Serine Protease-3, IgG 1 AU/mL (0-19)
[2023-12-09] MEDS: ZOSYN 50 IV ×3 (03:59→18:02)
[2023-12-09 04:57] LABS: Vancomycin Random 15.5 ug/ml
[2023-12-09 05:22] LABS: Hematocrit 41.4 % (37.0-47.0); Hemoglobin 12.8 g/dL (12.0-16.0); Mean Corp Hgb Conc. 30.9 g/dL (33.0-37.0); Mean Corpuscular Hgb 25.1 pg (27.0-31.0); Mean Corpuscular Volume 81.3 fL (81.0-99.0); Mean Platelet Volume 10.4 fL (7.4-10.4); Platelet Count 219 10^3/uL (130-400); Red Blood Cell Count 5.09 10^6/uL (4.20-5.40); Red Cell Dist. Width 14.6 % (11.5-14.5)
[2023-12-09 06:03] LABS: ALT (SGPT) 21 U/L (0-35); AST (SGOT) 43 U/L (14-36); Albumin 2.6 g/dl (3.5-5.0); Alkaline Phosphatase 93 U/L (38-126); Blood Urea Nitrogen 80 mg/dl (7-17); Calcium 9.2 mg/dl (8.4-10.2); Carbon Dioxide 32 mmol/L (22-30); Chloride 107 mmol/L (98-107); Estimated Creatinine Clearance 30 ml/min; Glucose 142 mg/dl (70-99); Potassium 3.5 mmol/L (3.5-5.1); Sodium 146 mmol/L (135-145); Total Bilirubin 0.9 mg/dl (0.2-1.3); Total Protein 5.1 g/dl (6.3-8.2); eGFR 34.79
[2023-12-09 08:41] LABS: ANA, IgG Reflex to HEp-2 None Detected (None Detected)
[2023-12-09] MEDS: HEPARIN 5000 UNITS SC (08:47)
[2023-12-09] MEDS: ASPIRIN 300 MG RECTAL (08:47)
--- NOTE | 2023-12-09 08:48 | PHA.VAN.FU ---
Vancomycin Assessment / Plan
- Assessment
Renal Function: SCR Decreasing
WBC's are: Trending Down
In the past 24 hrs, patient has been: Afebrile
Concomitant Antimicrobials: piperacillin/tazobactam
- Assessment - Therapeutic Drug Monitoring
Random Level: 15.5 - drawn ~15.5H after previous dose of 1g
- Dosing Plan
Dosing by Level: Re-dose today (Vanc 750mg)
- Monitoring Plan
Random Level: 12/09 599
- Follow Up
Pharmacy will continue to follow.
Vancomycin Follow UP
- -
Patient Age: 83
Patient Sex: Female
Vancomycin Day #: 4
Indication: Bacteremia
Requesting Provider: Dr. Bender
Pertinent Antimicrobial Allergies:
no pertinent antibiotic allergies
Height / Weight:
Height 5 ft 4 in
Actual Weight 80.1 kg
Pertinent Past Medical History: BMI ~30
- Vital Signs / Lab Results
Temp Pulse Resp BP Pulse Ox
98.6 F 78 14 121/60 97
12/09/23 04:17 12/09/23 06:00 12/09/23 06:00 12/09/23 06:00 12/09/23 06:00
Lab Results - Hematology
12/06/23 12/07/23 12/08/23
11:11 05:03 04:25
WBC 32.4 H 19.5 H 15.1 H
Band Neutrophils 3 1
12/09/23
04:21
WBC 13.0 H
Band Neutrophils
Lab Results - Chemistry
12/06/23 12/07/23 12/07/23
11:11 05:03 18:21
BUN 159 H* 150 H* 138 H*
Creatinine 6.8 H* 4.7 H* 3.1 H
Estimated Creat Clear 10 14
Albumin 4.0
12/08/23 12/09/23
04:20 04:21
BUN 117 H* 80 H
Creatinine 2.3 H 1.5 H
Estimated Creat Clear 20 30
Albumin 2.5 L D 2.6 L
12/06/23 12/07/23
11:11 01:44
Lactic Acid 3.6 H 1.2
Microbiology Results
12/06/23 18:25 Blood Culture - Preliminary
Blood/Venous No Growth in 48 hours- Final report to follow
12/06/23 11:11 Blood Culture - Preliminary
Blood/Venous No Growth in 48 hours- Final report to follow
12/06/23 19:32 MRSA Screen - Final
Nose No Methicillin Resistant Staphylococcus aureus isolated.
Therapeutic Drug Monitoring
Random Vancomycin 15.5 ug/ml 12/09/23 04:21
--- NOTE | 2023-12-09 08:48 | W.PN.HOSP.TC ---
Today's Communication/Plan
-
see bold
Assessment / Plan
Assessment / Plan
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 Await brain MRI. Neurology following. 12/07 VSE shows aspiration. 12/[address] Dobbhoff tube due to resistance. Continue strict NPO, IVFs. Continue rectal aspirin. Continue
PT/OT/SPL, may need to consult GI for PEG if no improvement.
Acute TME -likely multifactorial etiology including acute stroke, acute kidney injury, volume depletion, etc. Somewhat more awake and alert today but still encephalopathic.
KIMBERLY -likely due to profound volume depletion, acute urinary retention, etc. Creatinine coming down. Appreciate nephrology input, continue IV fluids, hold losartan.
Hypovolemic shock -s/p Levophed. Shock due to profound volume depletion. Clinically doubt sepsis. Blood pressure improved.
Right iatrogenic pneumothorax status post chest tube 12/07/23. Appreciate pulmonology input, continue management as per pulmonology
Leukocytosis -WBC trending down, procalcitonin elevated at 0.80, no fever, blood cultures negative, no source of infection identified. Currently on empiric Zosyn.
Hypokalemia -replete prn. Magnesium is normal.
QTc prolongation�resolved
Hypernatremia�change to D5W per nephrology
Acute urinary retention -Maldonado catheter inserted in the emergency room. Maintain for now.
High anion gap metabolic acidosis -likely due to KIMBERLY, starvation, etc. Trace urine ketones noted. Bicarbonate now normal. Resolved.
Lactic acidosis -likely due to profound volume depletion, KIMBERLY. Lactate normalized.
Mild traumatic rhabdomyolysis -due to fall, stroke, immobility. IV fluids as above. CPK trending down.
Hypothyroidism -TSH 1.22. Will order IV Synthroid since patient is still n.p.o.
Essential hypertension -hypotension related to profound volume depletion, improving with IV fluids. Hold losartan for KIMBERLY.
Hyperlipidemia -on atorvastatin.
DVT prophylaxis�start subcu heparin
DNR
Physical exam:
Gen-frail, elderly, NAD
HEENT-NC, AT, anicteric, dry oral mucous membranes
Neck-supple
CV-reg, no M, +S1/S2
Lungs-clear B/L
Abd-soft, NT, ND
Ext-no edema
Musculoskeletal-no cyanosis, clubbing
Skin-warm and dry
Oglgs-rvtc-sicgm neglect, left hemiparesis
Anticipated Discharge: > 48 hours
Subjective/Interval History
-
Date of Service: December 09, 2023
Patient having loose bowel movements from antibiotics. No fever, no vomiting.
Objective Data
-
Labs:
Laboratory Results
12/09/23
04:21
WBC 13.0 H
Hgb 12.8
Hct 41.4
Plt Count 219
Sodium 146 H
Potassium 3.5
Chloride 107
Carbon Dioxide 32 H
BUN 80 H
Creatinine 1.5 H
Glucose 142 H
Calcium 9.2
Total Bilirubin 0.9
AST 43 H
ALT 21
Alkaline Phosphatase 93
Vital Signs:
Vital Signs
Temp Pulse Resp BP Pulse Ox
98.6 F 78 14 121/60 97
12/09/23 04:17 12/09/23 06:00 12/09/23 06:00 12/09/23 06:00 12/09/23 06:00
I&O
12/08/23 12/09/23 12/10/23
06:59 06:59 06:59
Intake Total 2185 / 2185 2270 / 2270
Output Total 1505 / 1505 1700 / 1700
Balance 680 / 680 570 / 570
--- NOTE | 2023-12-09 09:15 | W.PN.PUL3 ---
Today's Communication / Plan
-
Waterseal today, repeat CXR in 3 hours
If doing well can clamp and remove/discussed with IR
Continue speech evaluations, likely will need PEG
PT/OT ongoing
She is DNR
Consideration for family discussions on GOC/niece arriving Friday per CM note
Assessment
-
83-year-old woman with past medical history noted, found at home on the floor. Change in mental status, left hemiparesis-CVA suspected. Multiple metabolic derangements found. Severe renal insufficiency, metabolic acidosis, rhabdomyolysis. Not a
candidate for tenecteplase due to timing.
Abrupt onset mental status change-found down at home/left hemiparesis
Shock: Hypovolemic/less likely septic
Leukocytosis on admission possibly hemoconcentrated
Hypokalemia
Urinary retention-Maldonado in place
Anion gap metabolic acidosis-increased lactic acid due to profound volume depletion and shock
Mild rhabdomyolysis-patient was found down at home
Toxic metabolic encephalopathy secondary to above
Acute kidney injury with significant uremia
Right iatrogenic pneumothorax post NG tube placement-status post chest tube 12/07/2023
Conditions present prior admission:
Hypothyroidism
Hypertension
Hyperlipidemia
Plan
Shock: Likely hypovolemia, less likely septic, resolved
Off pressors
Right iatrogenic pneumothorax status post chest tube 12/07/23
Repeat CXR 12/07 showing resolution of ptx
If doing well, can consider placing on waterseal, will change order this AM
Repeat CXR after waterseal 3 hours
Metabolic acidosis improved on bicarbonate drip.
IV fluid management per nephrology
Follow renal function improving after IV fluid resuscitation
Unlikely to be a great candidate for dialysis at this point.
Replete electrolytes as needed.
Possible infection: So far cultures negative. Clinically no focal evidence
Leukocytosis improving-suspect hemoconcentration due to volume depletion
On empiric antibiotic, low threshold to stop if all cultures negative
Left hemiparesis: Suspect acute CVA. Was not a candidate for tenecteplase due to timing of present
Neurology following
Antiplatelet/Statins
No evidence for atrial fibrillation, continue telemetry monitoring
Eventual echo/pending
Speech following
VSE results: reviewed below--mild-moderate oral and moderate-severe pharyngeal stages of swallowing; nonoral nutrition means recommended
Likely to need eval for PEG placement per team
DVT prophylaxis-SCDs for now per
Consider pharmacological DVT prophylaxis in the next 24 hours
Diagnostic Data
CXR 12/07/23- There is a moderate right pneumothorax. Dobbhoff tube tip is in the right lower chest and should be removed.
CXR 12/06/23- LARGE HIATAL HERNIA with adjacent mild chronic subpleural scarring and subsegmental atelectasis in the basilar segments of the lower lobes of both lungs.
VSE 12/08/23- Patient presents with mild-moderate oral and moderate-severe pharyngeal stages of swallowing. Aspiration with an ineffective cough response occurred with thin liquids via tsp. Deep laryngeal penetration occurred with mildly thick and
moderately thick liquids. Patient could not clear moderate pharyngeal residue with puree. Aspiration risk is elevated. Etiology of dysphagia is likely suspected CVA.
Recommend:
1. NPO - consider non-oral means of nutrition/hydration
2. Medications - via non-oral means preferred; otherwise essential meds which cannot be given non-orally crushed in sparing amounts of puree with double swallows and cues to cough
3. Oral care 3-5x daily with suctioning
4. Aspiration Risk Hydration Protocol (ARHP) - ice chips sparingly post oral care with supervision
5. Dysphagia therapy at the acute care level for patient/family education and rehabilitation.
Subjective Data
-
Date of Service:
Date of Service: December 09, 2023
Chief Complaint: Pulmonary Follow Up
Subjective:
no acute events ON, remains on RA
no complaints, falling asleep during conversation
tube may have been kinked overnight, left on suction
Objective Data
Data Reviewed
Vital Signs / I&O / Oxygen:
Vital Signs
Temp Pulse Resp BP Pulse Ox
98.6 F 78 14 121/60 97
12/09/23 04:17 12/09/23 06:00 12/09/23 06:00 12/09/23 06:00 12/09/23 06:00
Intake and Output
12/08/23 12/09/23 12/10/23
06:59 06:59 06:59
Intake Total 2185 / 2185 2270 / 2270
Output Total 1505 / 1505 1700 / 1700
Balance 680 / 680 570 / 570
SaO2 97
Nasal Cannula flow liters per 2
minute
Physical Exam
General: Comfortable and Other (NAD)
HEENT: Normocephalic, Anicteric and Other (dry MM, poor oral hygiene)
Cardiovascular: S1-S2, Regular Rhythm and Peripheral Edema
Respiratory: Clear, Non-Labored Respirations and Chest Tube (no leak/on suction)
GI: Soft, Non Distended and Non Tender
Neurology: Awake, Alert, Oriented (to self) and Other (cognitive dysfunction, answers simple questions)
Skin: Warm and Dry
Labs/Micro/Reports
Lab Data
12/09/23 04:21
12/09/23 04:21
Microbiology
12/06/23 18:25 Blood/Venous Blood Culture - Preliminary
No Growth in 48 hours- Final report to follow
12/06/23 11:11 Blood/Venous Blood Culture - Preliminary
No Growth in 48 hours- Final report to follow
12/06/23 19:32 Nose MRSA Screen - Final
No Methicillin Resistant Staphylococcus aureus isolated.
12/06/23 20:43 Nasal Swab Influenza Types A & B (SOM) - Final
Negative for Influenza A & B, NAAT
Negative results must be combined with clinical observations
and patient history.
Nucleic Acid Amplification test (NAAT)performed on the
[employer] NOW platform.
--- NOTE | 2023-12-09 09:30 | PTCARENOTE ---
Patient received from relay dispatcher. Patient resting comfortably in bed. AAO x 2 mostly to self but unaware of year. [facility] this AM is 12. VSS off Levo. No significant events noted overnight. No complaints of pain, no grimacing. Chest tube in
place to wall suction, found to be kinked. Dressing removed and revealed the tube being twisted as well. Tube readjusted and site redress, attending and Pulmonary made aware, CXR ordered. Removed from suction and left to water seal per order.
Maldonado in place with yellowish blood tinged output. Dressing CDI at this time, will be changed later. Call grullon in reach.
--- NOTE | 2023-12-09 10:17 | PTCARENOTE ---
Chest tube to water seal per order.
[2023-12-09] MEDS: D5W 1000 IV (11:31)
--- NOTE | 2023-12-09 14:59 | W.PN.NEPH.PH ---
Today's Communication / Plan
-
- continue D5W for hyernatremia
Assessment/Plan
-
IMP:
Suspected septic shock
Acute Kidney Injury
Urinary Retention
mild Rhabdomyolysis
Left Sided Weakness, highly suspicious for acute stroke
A gap met acidosis
Hypothyroidism
HLD
PLan:
A/w left side weakness concern of CVA 12/05
KIMBERLY-baseline cr of 1.2 in 2019, peak 6.8, now down to 1.5
suspect ATN, UA with micro hematuria, alb+
C4 slightly high, LENNOX, ANCA pending. KUS with left renal cyst otherwise normal
monitor UOP with johnston-non oliguric currently
met acidosis resolved
c/w D5W for hyperNa
off pressors at this time
chest tube in place for PTX after DHT
avoid nephrotoxins, ARB
no emergent indication of HD
replace K PRN
on 12/05 Dr. De Leon spoke with Héctor Machado on phone and explained critical situation
she understands and reports that pt is DNR-no CPR or vent
she however not able to decide on CHIEF OPERATIONS OFFICER needs, she wants to discuss with her sister
d/w nursing
-
-
Date of Service: December 09, 2023
CC / HPI / ROS
-
Chief Complaint:
KIMBERLY
History of Present Illness:
cr improving to 1.5, bun 80
k low 3.5
BP stable on pressor
ck down 1290
DHT placement resulted in pneumothx now s/p CT today
wbc improving
hypernatremia, improving with D5W
Review of Systems:
sedated post procedure
per staff still dysarthric
no fever, non oliguric
Labs
-
Labs:
WBC 13.0 10^3/uL (4.8-10.8) H 12/09/23 04:21
RBC 5.09 10^6/uL (4.20-5.40) 12/09/23 04:21
Hgb 12.8 g/dL (12.0-16.0) 12/09/23 04:21
Hct 41.4 % (37.0-47.0) 12/09/23 04:21
Plt Count 219 10^3/uL (130-400) 12/09/23 04:21
Sodium 146 mmol/L (135-145) H 12/09/23 04:21
Potassium 3.5 mmol/L (3.5-5.1) 12/09/23 04:21
Chloride 107 mmol/L (98-107) 12/09/23 04:21
Carbon Dioxide 32 mmol/L (22-30) H 12/09/23 04:21
BUN 80 mg/dl (7-17) H 12/09/23 04:21
Creatinine 1.5 mg/dL (0.6-1.0) H 12/09/23 04:21
eGFR 34.79 12/09/23 04:21
Glucose 142 mg/dl (70-99) H 12/09/23 04:21
Calcium 9.2 mg/dl (8.4-10.2) 12/09/23 04:21
Albumin 2.6 g/dl (3.5-5.0) L 12/09/23 04:21
Physical Exam
-
Vital Signs:
Vital Signs
Temp Pulse Resp BP Pulse Ox
98.2 F 78 14 121/60 94
12/09/23 07:55 12/09/23 06:00 12/09/23 06:00 12/09/23 06:00 12/09/23 10:53
Cardiovascular:: Regular rate and rhythm
Respiratory:: Bilateral: Coarse
Lung Excursion:: Normal
Abdomen:: Nontender and Soft
Bowel Sounds:: Normal
Extremity Edema:: +1: Bilateral:
Johnston Catheter: Yes
--- NOTE | 2023-12-09 16:01 | ED.CVA ---
History of Present Illness
General
Chief Complaint: CVA/TIA Symptoms
Time Seen by Provider: 12/06/23 11:10
Travel History
Have you had any contact with someone who has COVID-19?: Unable to Answer
Do you have any symptoms of coronavirus? Fever > 100 degrees, chills, cough, shortness of breath, sore throat, loss of taste or smell, muscle aches, or headache?: Unable to Answer
Past History
Past History
ED Past Medical History: Cancer (Skin cancer), HTN, Hypercholesterolemia and Other (Migraines)
ED Past Surgical History: Other (Rectal tumor removed)
Social History
Tobacco: Non-smoker
Alcohol: None
Drug: None
Personal: Single
Living: alone
Employment: Employed
Family History
Family History: Other (Reviewed and Noncontributory)
Course
Orders/Labs/Results
Orders:
Orders
12/06/23 10:55
Electrocardiogram (*1) Urgent
Reason for Study: TIA/Stroke
12/06/23 10:57
CT Head W/o Iv Contrast Urgent
Comment:
Reason For Exam: change in mentation
EKG- Treatment ONCE
12/06/23 11:11
Cardiovascular Evaluation Urgent
Comment: ADD ON
Complete Blood Count/With Diff Urgent
Comprehensive Metabolic Panel Urgent
Creatine Phosphokinase Urgent
Lactic Acid Urgent
Manual Differential Urgent
Urinalysis Reflex To Culture Urgent
Date Specimen was Collected: 12/06/23
Time Specimen was Collected: 11:10
Urine Creatinine Urgent
Date Specimen was Collected: 12/06/23
Time Specimen was Collected: 11:10
Comment: ADD ON
Urine Microscopic Reflex Cult Urgent
Urine Protein Urgent
Date Specimen was Collected: 12/06/23
Time Specimen was Collected: 11:10
Urine Sodium Urgent
Date Specimen was Collected: 12/06/23
Time Specimen was Collected: 11:10
Comment: ADD ON
Blood Culture Urgent
KOSTAS Source: Blood/Venous
Specimen Description:
Date Specimen was Collected: 12/06/23
Time Specimen was Collected: 11:10
12/06/23 11:16
Add On- LAB Urgent
Tests Added?: CPK
12/06/23 11:26
CR Chest Portable - 1 View Urgent
Comment:
Reason For Exam: hypoxia
Reason Study Needs to be Portable: Unable to Transport
12/06/23 11:32
0.9% Sodium Chloride 1000 ml [Nss] 2,000 ml IV BOLUS
12/06/23 14:12
Maldonado Catheter [Catheter- Indwelling] As Directed
Reason for insertion: Acute Kidney Injury
Discontinue Date/Time: 12/09/23 0600
Intake/ Output As Directed
Frequency: Per unit guidelines
Comment: strict intake and output monitoring
Weight As Directed
Frequency: Daily
12/06/23 14:25
Aspirin 300 mg RECTAL NOW STA
12/06/23 14:48
Admit/Transfer Patient As Directed
Co-Sign Provider:
Level of Care: Inpatient admission
Assign to:: IMU- Intermediate Care
Physician / Group: Dionne
Diagnosis: KIMBERLY, Rhabdo, Acute Stroke
Reason for Hospitalization: IVFs, Neurology and Nephrology consult, Brain MRI
Expected length of stay greater than two midnights?: Yes
ELOS- Estimated Length of Stay in days: 3
I certify the patient meets the requirements for IP care: Yes
12/06/23 14:50
Code Status As Directed
Resuscitation Status: Full Code
12/06/23 Dinner
NPO
Reason for opting out of Senior Benefits Analyst order writing: Provider Decision
Allow oral meds: No
Allow clear liquids: No
12/06/23 16:07
Acetaminophen [Tylenol/Feverall] 650 mg RECTAL Q4HPRN PRN
Acetaminophen [Tylenol] 650 mg PO Q4HPRN PRN
12/06/23 16:07
Case Management Consult ONCE
Case Management Consult: Discharge Planning
Comment: stroke/tia
DIETARY CONSULT Routine
Reason for Consult: stroke/TIA
NEPHROLOGY CONSULT Routine
Consulting Provider: Kellie Logan
Was physician already notified: Yes
NEUROLOGY CONSULT Routine
Consulting Provider: Bart Alvarado
Was physician already notified: Yes
Mathematics Academic Chair Routine
Activity As Directed
Activity Level: Bedrest
NIH Stroke Scale As Directed
Directions: Per protocol
Comment: every shift and with any change in condition or mental status
Neurological Checks As Directed
Frequency: q4h
Additional Instructions:: q4h x 24h upon admission to the floor, then qshift & with any change in condition
and mental status
Patient Education As Directed
Type: Stroke education packet
Comment: provide to patient and family
Pneumatic Compression Sleeves As Directed
Type: Knee high
Vital Signs As Directed
Frequency: Per unit guidelines
Ot Eval And Treat Routine
Pt Eval And Treat Routine
Activity Level: Out of Bed- Chair
With Assistance
Speech Therapy Eval & Treat Routine
DX Deep Vein Thrombosis Video Routine
12/06/23 18:25
Blood Culture Urgent
KOSTAS Source: Blood/Venous
Specimen Description:
12/07/23 05:03
Basic Metabolic Panel IN AM
Cardiovascular Evaluation IN AM
Complete Blood Count/With Diff IN AM
Creatine Phosphokinase IN AM
Glycohemoglobin (HgbA1c) IN AM
Magnesium IN AM
TSH Reflex To Free T4 IN AM
12/07/23 08:00
Aspirin 300 mg RECTAL DAILY
Abnormal Lab Results
12/06/23
11:11
WBC 32.4 H 10^3/uL
(4.8-10.8)
RBC 7.10 H 10^6/uL
(4.20-5.40)
Hgb 17.8 H g/dL
(12.0-16.0)
Hct 52.0 H %
(37.0-47.0)
MCV 73.2 L fL
(81.0-99.0)
MCH 25.1 L pg
(27.0-31.0)
RDW 16.9 H %
(11.5-14.5)
Abs Neuts (Manual) 30.1 H 10^3/uL
(1.4-6.5)
Segmented Neutrophils 90 H %
(42-75)
Lymphocytes (Manual) 2 L %
(20-51)
Carbon Dioxide 15 L mmol/L
(22-30)
BUN 159 H* mg/dl
(7-17)
Creatinine 6.8 H* mg/dL
(0.6-1.0)
Glucose 109 H mg/dl
(70-99)
Lactic Acid 3.6 H mmol/L
(0.7-2.0)
AST 61 H U/L
(14-36)
Creatine Kinase 1334 H U/L
(30-135)
Triglycerides 219 H mg/dl
(10-149)
VLDL Cholesterol, Calc 43 H mg/dl
(0-30)
Urine Ketones Trace A
(Negative)
Ur Occult Blood Reflex 4+ A
(Negative)
Urine Bilirubin 1+ A
(Negative)
Leukocyte Esterase Rfl Trace A
(Negative)
Urine RBC 3-6 A /HPF
(0-2)
Urine Bacteria (Reflex) Few A
(Negative)
Urine Yeast Few A
(Negative)
Urine Total Protein 760 H mg/dl
(0-12)
Urine Albumin (Reflex) 3+ A
(Neg - Trace)
12/06/23 11:11
12/06/23 11:11
Vital Signs
Initial and Last Documented VS:
Initial Vital Signs
BP
112/100
12/06/23 10:57
Last Documented Vital Signs
Temp Pulse Resp BP Pulse Ox
98.2 F 78 14 121/60 94
12/09/23 07:55 12/09/23 06:00 12/09/23 06:00 12/09/23 06:00 12/09/23 10:53
ED Attending Note
-
Portions of this chart may have been created with voice recognition software.� Occasional wrong word or��sound alike� substitutions may have occurred due to the inherent limitations of voice recognition software.
Discharge Plan
Departure
Patient Disposition: Admit
Date of Disposition: 12/06/23
Time of Disposition: 13:25
Admit to: IMU
Presentation/result/management discussed w/ accepting MD/DO: Hospitalist
Patient with high blood pressure during this ER visit?: Yes
Condition: Fair
Discharge Problem:
Acute cerebrovascular accident (CVA), Acute renal failure, Acute urinary retention, Acute hypotension, Rhabdomyolysis
Interventions
Interventions:
*Risk Screen - Suicide Last Done: 12/06/23 19:00
*General Assessment Last Done: 12/06/23 10:58
*Neglect/Abuse Screening Last Done: 12/06/23 10:58
ED- Fall Risk Assessment Last Done: 12/06/23 16:13
*ED COVID-19 Vaccine History Last Done: 12/06/23 19:00
*Nursing Disposition Last Done: 12/06/23 16:13
ED- Pulmonary Assessment Last Done: 12/06/23 12:08
ED- Neurological Assessment Last Done: 12/06/23 12:15
ED- Cardiac Assessment Last Done: 12/06/23 12:08
ED Swallowing Screen Last Done: 12/06/23 12:12
Discharge Date and Time
Discharge Date/Time: 12/06/23 16:14
[2023-12-09] MEDS: VANCOCIN 150 IV (16:49)
[2023-12-09] MEDS: LIPITOR PO (18:02)
--- NOTE | 2023-12-09 19:46 | W.PN.UPDATE ---
Update Note
Progress Note Update
blood noted in vickie which is new from today. will hold pm heparin sq. resume in am if no blood
[2023-12-09] MEDS: LEVOTHROID 37.5 MCG IV (20:06)
[2023-12-10] VITALS (18 sets, daily range): BP systolic 126–176; BP diastolic 60–108; PULSE 73–75; O2SAT 96; BMI 30.4
[2023-12-10] MEDS: D5W 1000 IV (00:40)
[2023-12-10] MEDS: ZOSYN 50 IV ×4 (00:40→17:25)
--- NOTE | 2023-12-10 03:34 | PTCARENOTE ---
Pt chest tube in place to water seal with no kinks. Lungs are CTA but slightly diminished throughout. Maldonado draining blood tinged urine with some blood clots present. Notified STATISTICS TUTOR. Heparin on hold until blood no longer present. Wound care
completed on day shift; dressings remain C/D/I. Hygiene care provided. NIH 11 at start of shift. Pt orientation, strength, and conversation all seem to be improving. Resting in bed with call grullon in reach.
[2023-12-10 04:59] LABS: Hematocrit 39.5 % (37.0-47.0); Hemoglobin 12.8 g/dL (12.0-16.0); Mean Corp Hgb Conc. 32.4 g/dL (33.0-37.0); Mean Corpuscular Volume 77.3 fL (81.0-99.0); Mean Platelet Volume 9.9 fL (7.4-10.4); Platelet Count 185 10^3/uL (130-400); Red Blood Cell Count 5.11 10^6/uL (4.20-5.40); Red Cell Dist. Width 14.2 % (11.5-14.5); White Blood Cell Count 12.3 10^3/uL (4.8-10.8)
[2023-12-10 05:05] LABS: Vancomycin Random 16.1 ug/ml
[2023-12-10 05:30] LABS: ALT (SGPT) 21 U/L (0-35); AST (SGOT) 40 U/L (14-36); Albumin 2.4 g/dl (3.5-5.0); Alkaline Phosphatase 94 U/L (38-126); Blood Urea Nitrogen 54 mg/dl (7-17); Calcium 8.5 mg/dl (8.4-10.2); Carbon Dioxide 29 mmol/L (22-30); Chloride 108 mmol/L (98-107); Creatine Phosphokinase 80 U/L (30-135); Estimated Creatinine Clearance 38 ml/min; Glucose 129 mg/dl (70-99); Magnesium 1.5 mg/dl (1.6-2.3); Phosphorus 2.3 mg/dl (2.5-4.5); Potassium 3.4 mmol/L (3.5-5.1); Sodium 140 mmol/L (135-145); Total Bilirubin 1.1 mg/dl (0.2-1.3); eGFR 45.48
[2023-12-10] MEDS: MAGNESIUM SULFATE 50 IV (06:34)
[2023-12-10] MEDS: HEPARIN 5000 UNITS SC ×2 (08:18→20:28)
[2023-12-10] MEDS: ASPIRIN 300 MG RECTAL (08:18)
--- NOTE | 2023-12-10 09:07 | W.PN.PUL3 ---
Today's Communication / Plan
-
Tolerated waterseal 24 hours
IR consult for clamp trial and discontinuation of tube today
Likely for PEG tube this admission
Post CVA management per team
Assessment
-
83-year-old woman with past medical history noted, found at home on the floor. Change in mental status, left hemiparesis-CVA suspected. Multiple metabolic derangements found. Severe renal insufficiency, metabolic acidosis, rhabdomyolysis. Not a
candidate for tenecteplase due to timing.
Abrupt onset mental status change-found down at home/left hemiparesis
Shock: Hypovolemic/less likely septic
Leukocytosis on admission possibly hemoconcentrated
Hypokalemia
Urinary retention-Maldonado in place
Anion gap metabolic acidosis-increased lactic acid due to profound volume depletion and shock
Mild rhabdomyolysis-patient was found down at home
Toxic metabolic encephalopathy secondary to above
Acute kidney injury with significant uremia
Right iatrogenic pneumothorax post NG tube placement-status post chest tube 12/07/2023
Conditions present prior admission:
Hypothyroidism
Hypertension
Hyperlipidemia
Plan
Right iatrogenic pneumothorax status post chest tube 12/07/23
Repeat CXR 12/07 showing resolution of ptx
Repeat CXR after waterseal is stable 12/08
No leak in tube this AM, tolerated waterseal overnight
Metabolic acidosis improved on bicarbonate drip.
IV fluid management per nephrology
Follow renal function improving after IV fluid resuscitation
Unlikely to be a great candidate for dialysis at this point.
Replete electrolytes as needed.
Possible infection: So far cultures negative. Clinically no focal evidence
Leukocytosis improving-suspect hemoconcentration due to volume depletion
On empiric antibiotic, low threshold to stop if all cultures negative
Left hemiparesis: Suspect acute CVA. Was not a candidate for tenecteplase due to timing of present
Neurology following
Antiplatelet/Statins
No evidence for atrial fibrillation, continue telemetry monitoring
ECHO reviewed, essentially normal, biV function preserved
Speech following
VSE results: reviewed below--mild-moderate oral and moderate-severe pharyngeal stages of swallowing; nonoral nutrition means recommended
Likely to need eval for PEG placement per team
GI following
DVT prophylaxis-SCDs for now per
Consider pharmacological DVT prophylaxis in the next 24 hours
Diagnostic Data
CXR 12/07/23- There is a moderate right pneumothorax. Dobbhoff tube tip is in the right lower chest and should be removed.
CXR 12/06/23- LARGE HIATAL HERNIA with adjacent mild chronic subpleural scarring and subsegmental atelectasis in the basilar segments of the lower lobes of both lungs.
VSE 12/08/23- Patient presents with mild-moderate oral and moderate-severe pharyngeal stages of swallowing. Aspiration with an ineffective cough response occurred with thin liquids via tsp. Deep laryngeal penetration occurred with mildly thick and
moderately thick liquids. Patient could not clear moderate pharyngeal residue with puree. Aspiration risk is elevated. Etiology of dysphagia is likely suspected CVA.
Recommend:
1. NPO - consider non-oral means of nutrition/hydration
2. Medications - via non-oral means preferred; otherwise essential meds which cannot be given non-orally crushed in sparing amounts of puree with double swallows and cues to cough
3. Oral care 3-5x daily with suctioning
4. Aspiration Risk Hydration Protocol (ARHP) - ice chips sparingly post oral care with supervision
5. Dysphagia therapy at the acute care level for patient/family education and rehabilitation.
ECHO 12/08/23- Left ventricle is small in size. Normal left ventricular wall thickness. Normal left ventricular systolic function. Left ventricular ejection fraction is 55- 60%. Diastolic function indeterminate. Thickened mitral valve leaflets.
Mitral annular calcification. Mitral valve opens normally. Trace mitral regurgitation. Trileaflet aortic valve. Thickened aortic valve with normal leaflet excursion. Aortic sclerosis without stenosis. Aortic annular calcification. Trace aortic
regurgitation is seen. Mild ascending aorta dilatation -3.8 cm. The aortic arch is normal in caliber. There is no cardiac embolic source seen. However if clinical suspicion is high would suggest TOM.
Subjective Data
-
Date of Service:
Date of Service: December 10, 2023
Chief Complaint: Pulmonary Follow Up
Subjective:
no new events, remains clinically unchanged
chest tube with no leak, tolerated water seal overnight
Objective Data
Data Reviewed
Vital Signs / I&O / Oxygen:
Vital Signs
Temp Pulse Resp BP Pulse Ox
97.5 F 73 17 130/63 94
12/10/23 03:00 12/10/23 06:00 12/10/23 06:00 12/10/23 06:00 12/10/23 06:00
Intake and Output
12/09/23 12/10/23 12/11/23
06:59 06:59 06:59
Intake Total 2270 / 2270 2130 / 2130
Output Total 1700 / 1700 1275 / 1275
Balance 570 / 570 855 / 855
SaO2 94
Nasal Cannula flow liters per 2
minute
Physical Exam
General: Comfortable and Other (NAD)
HEENT: Normocephalic, Anicteric and Other (dry MM, poor oral hygiene)
Cardiovascular: S1-S2, Regular Rhythm and Peripheral Edema
Respiratory: Clear, Non-Labored Respirations and Chest Tube (no leak/on suction)
GI: Soft, Non Distended and Non Tender
Neurology: Awake, Alert, Oriented (to self) and Other (cognitive dysfunction, answers simple questions)
Skin: Warm and Dry
Labs/Micro/Reports
Lab Data
12/10/23 04:32
12/10/23 04:32
Microbiology
12/06/23 18:25 Blood/Venous Blood Culture - Preliminary
No Growth in 72 hours- Final report to follow
12/06/23 11:11 Blood/Venous Blood Culture - Preliminary
No Growth in 72 hours- Final report to follow
04/06/24 19:32 Nose MRSA Screen - Final
No Methicillin Resistant Staphylococcus aureus isolated.
--- NOTE | 2023-12-10 09:10 | PHA.VAN.FU ---
Vancomycin Assessment / Plan
- Assessment
Renal Function: SCR Decreasing
WBC's are: Trending Down
In the past 24 hrs, patient has been: Afebrile
Concomitant Antimicrobials: piperacillin/tazobactam
- Assessment - Therapeutic Drug Monitoring
Random Level: 16.1 - drawn ~11.5H after after previous dose of 750mg
- Dosing Plan
Dosing by Level: Re-dose today (Vanc 750mg)
- Monitoring Plan
Random Level: 12/10 599
- Follow Up
Pharmacy will continue to follow.
Vancomycin Follow UP
- -
Patient Age: 83
Patient Sex: Female
Vancomycin Day #: 5
Indication: Bacteremia
Requesting Provider: Dr. Bender
Pertinent Antimicrobial Allergies:
no pertinent antibiotic allergies
Height / Weight:
Height 5 ft 4 in
Actual Weight 80.4 kg
Pertinent Past Medical History: BMI ~30
- Vital Signs / Lab Results
Temp Pulse Resp BP Pulse Ox
97.5 F 73 17 130/63 94
12/10/23 03:00 12/10/23 06:00 12/10/23 06:00 12/10/23 06:00 12/10/23 06:00
Lab Results - Hematology
12/08/23 12/09/23 12/10/23
04:25 04:21 04:32
WBC 15.1 H 13.0 H 12.3 H
Band Neutrophils 1
Lab Results - Chemistry
12/07/23 12/08/23 12/09/23
18:21 04:20 04:21
BUN 138 H* 117 H* 80 H
Creatinine 3.1 H 2.3 H 1.5 H
Estimated Creat Clear 14 20 30
Albumin 2.5 L D 2.6 L
12/10/23
04:32
BUN 54 H
Creatinine 1.2 H
Estimated Creat Clear 38
Albumin 2.4 L
Microbiology Results
12/06/23 18:25 Blood Culture - Preliminary
Blood/Venous No Growth in 72 hours- Final report to follow
12/06/23 11:11 Blood Culture - Preliminary
Blood/Venous No Growth in 72 hours- Final report to follow
12/06/23 19:32 MRSA Screen - Final
Nose No Methicillin Resistant Staphylococcus aureus isolated.
Therapeutic Drug Monitoring
Random Vancomycin 16.1 ug/ml 12/10/23 04:32
--- NOTE | 2023-12-10 09:16 | W.PN.HOSP.TC ---
Today's Communication/Plan
-
see bold
Assessment / Plan
Assessment / Plan
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 Await brain MRI. Neurology following. 12/07 VSE shows aspiration. 12/[address] Dobbhoff tube due to resistance. Continue aspirin/statin. Continue PT/OT/SPL. 12/09, repeat VSE
with improvement, start pur�ed diet with honey thickened liquids
Acute TME -likely multifactorial etiology including acute stroke, acute kidney injury, volume depletion, etc. continues to improve
KIMBERLY -likely due to profound volume depletion, acute urinary retention, etc. Creatinine coming down. Appreciate nephrology input, continue IV fluids, hold losartan.
Hypovolemic shock -s/p Levophed. Shock due to profound volume depletion. Clinically doubt sepsis. Blood pressure improved.
Right iatrogenic pneumothorax status post chest tube 12/07/23. Appreciate pulmonology input, continue management as per pulmonology
Leukocytosis -WBC trending down, procalcitonin elevated at 0.80, no fever, blood cultures negative, no source of infection identified. Currently on empiric Zosyn. Stop vancomycin
Hypokalemia -replete prn.
Hypomagnesemia�replete as needed.
Hypophosphatemia�replete as needed
QTc prolongation�resolved
Hypernatremia�resolved with D5W
Acute urinary retention -Maldonado catheter inserted in the emergency room. Maintain for now.
High anion gap metabolic acidosis -likely due to KIMBERLY, starvation, etc. Trace urine ketones noted. Bicarbonate now normal. Resolved.
Lactic acidosis -likely due to profound volume depletion, KIMBERLY. Lactate normalized.
Mild traumatic rhabdomyolysis -due to fall, stroke, immobility. IV fluids as above. CPK normalized
Hypothyroidism -TSH 1.22. Can resume oral levothyroxine tomorrow
Essential hypertension -hypotension related to profound volume depletion, improving with IV fluids. Hold losartan for KIMBERLY.
Hyperlipidemia -on atorvastatin.
DTI of sacrum, left heel and upper back...Right heel with stage 1 PI - wound care, turn patient Q2H
Left knee pain�suspect meniscal versus ligament, check knee x-ray, start Tylenol
DVT prophylaxis� subcu lovenox
DNR
Updated niece/POA 12/08, 12/09
Physical exam:
Gen-frail, elderly, NAD
HEENT-NC, AT, anicteric, dry oral mucous membranes
Neck-supple
CV-reg, no M, +S1/S2
Lungs-clear B/L
Abd-soft, NT, ND
Ext-no edema
Musculoskeletal-no cyanosis, clubbing
Skin-DTI of sacrum, left heel and upper back...Right heel with stage 1 PI
Vgspw-[id number] neglect, left hemiparesis
Anticipated Discharge: > 48 hours
Subjective/Interval History
-
Date of Service: December 10, 2023
Patient more awake and alert today. Her speech has improved medically. She is coughing less. No fever, no vomiting.
Objective Data
-
Labs:
Laboratory Results
12/10/23
04:32
WBC 12.3 H
Hgb 12.8
Hct 39.5
Plt Count 185
Sodium 140
Potassium 3.4 L
Chloride 108 H
Carbon Dioxide 29
BUN 54 H
Creatinine 1.2 H
Glucose 129 H
Calcium 8.5
Total Bilirubin 1.1
AST 40 H
ALT 21
Alkaline Phosphatase 94
Vital Signs:
Vital Signs
Temp Pulse Resp BP Pulse Ox
97.5 F 73 17 130/63 94
12/10/23 03:00 12/10/23 06:00 12/10/23 06:00 12/10/23 06:00 12/10/23 06:00
I&O
04/09/24 04/10/24 04/11/24
06:59 06:59 06:59
Intake Total 2270 / 2270 2130 / 2130
Output Total 1700 / 1700 1275 / 1275
Balance 570 / 570 855 / 855
--- NOTE | 2023-12-10 09:35 | VATNOTE ---
Left upper arm noted to be swollen surrounding midline insertion site. Arm now measures 39cm, compared to 34cm at insertion. Swollen area extends down to antecubital area; noted to be cool to touch. Patient denies pain, states sensation is intact in
arm. Midline and peripheral IV both removed from right arm, new IV placed in left arm. PCN updated, warm compress applied to arm.
[2023-12-10] MEDS: 0.45% NACL with KCL 20 MEQ 1000 IV (10:15)
--- NOTE | 2023-12-10 11:38 | PN.CDI ---
CDI
- -
CDI:
Physician Documentation Request
Admit Date: 12/06/23 15:02
Dear Doctor Do,
Patient admitted with acute stroke.
12/07 Wound Care Note: 'Patient admitted with DTI of sacrum, left heel and upper back...Right heel with stage 1 PI.'
Physician documentation of the type and location of wounds is required for compliant documentation. Based on the above clinical findings and your assessment, please provide the following in your progress note:
1. Location of the ulcer/wound, including laterality.
2. Type (etiology) of ulcer/wound:
- Diabetic ulcer
- Arterial (ischemic) ulcer
- Traumatic wound
- Venous stasis ulcer
- Pressure (decubitus) ulcer
- Non-healing surgical wound
- Other
- Unable to determine
3. For a non-pressure ulcer, please indicate the depth/severity:
- Limited to the breakdown of skin
- With fat layer exposed
- With necrosis of muscle
- With necrosis of bone
- Other
- Unable to determine
4. If a pressure ulcer, please also include the stage* of the ulcer:
- Stage 1 - Skin intact, non-blanchable redness
- Stage 2 - Partial thickness loss of dermis, includes intact or open blister
- Stage 3 - Full thickness tissue not including bone, tendon or muscle
- Stage 4 - Full thickness tissue loss, including exposed bone, tendon or muscle
- Unstageable - Full thickness loss in which the base of the ulcer is covered by slough (yellow, gardner, burroughs, green or brown) and/or eschar (gardner, brown or black) in the wound bed.
- Unable to determine
Use of terms such as suspected, likely, concern for, or probable (associated with a specific diagnosis that is being evaluated, monitored, or treated as if it exists) are acceptable and can be coded in the inpatient setting, when documented at the
time of discharge.
Thank you,
Madeleine Newman RN, BSN
CDI Specialist
Available via [employer] text
Please use your independent medical judgment in providing your response.
*Source: National Pressure Ulcer Advisory Panel (NPUAP)
[2023-12-10] MEDS: VANCOCIN 150 IV (12:19)
--- NOTE | 2023-12-10 12:55 | W.PN.NEPH.PH ---
Today's Communication / Plan
-
IVF adjusted per primary-cont for now
ok for VT and monitor mild heamturia
Assessment/Plan
-
IMP:
Suspected septic shock
Acute Kidney Injury
Urinary Retention
mild Rhabdomyolysis
Left Sided Weakness, highly suspicious for acute stroke
A gap met acidosis
Hypothyroidism
HLD
PLan:
A/w left side weakness concern of CVA 12/05
KIMBERLY-baseline cr of 1.2 in 2019, peak 6.8, now down to 1.2
suspect ATN, UA with micro hematuria, alb+, neg serologies
KUS with left renal cyst otherwise normal
monitor UOP with johnston-non oliguric currently,
mild hematuria monitor, ok for VT when strong
hypernatremia improving, IVF changed to 1/2NS with kcl per primary
BP stable
chest tube in place for PTX after DHT
d/w nursing
will s/o, call with ?s
-
-
Date of Service: December 10, 2023
CC / HPI / ROS
-
Chief Complaint:
KIMBERLY
History of Present Illness:
cr improving to 1.2, bun 54
k low 3.4
BP stable on pressor
DHT placement resulted in pneumothx now s/p CT 12/06
wbc improving
hypernatremia, improving with D5W
Review of Systems:
awake and speaking
per staff left side neglect.
offers no cp or sob
feels well
no fever
Labs
-
Labs:
WBC 12.3 10^3/uL (4.8-10.8) H 12/10/23 04:32
RBC 5.11 10^6/uL (4.20-5.40) 12/10/23 04:32
Hgb 12.8 g/dL (12.0-16.0) 12/10/23 04:32
Hct 39.5 % (37.0-47.0) 12/10/23 04:32
Plt Count 185 10^3/uL (130-400) 12/10/23 04:32
Sodium 140 mmol/L (135-145) 12/10/23 04:32
Potassium 3.4 mmol/L (3.5-5.1) L 12/10/23 04:32
Chloride 108 mmol/L (98-107) H 12/10/23 04:32
Carbon Dioxide 29 mmol/L (22-30) 12/10/23 04:32
BUN 54 mg/dl (7-17) H 12/10/23 04:32
Creatinine 1.2 mg/dL (0.6-1.0) H 12/10/23 04:32
eGFR 45.48 12/10/23 04:32
Glucose 129 mg/dl (70-99) H 12/10/23 04:32
Calcium 8.5 mg/dl (8.4-10.2) 12/10/23 04:32
Phosphorus 2.3 mg/dl (2.5-4.5) L 12/10/23 04:32
Albumin 2.4 g/dl (3.5-5.0) L 12/10/23 04:32
Physical Exam
-
Vital Signs:
Vital Signs
Temp Pulse Resp BP Pulse Ox
98.0 F 73 17 130/63 94
12/10/23 07:40 12/10/23 06:00 12/10/23 06:00 12/10/23 06:00 12/10/23 06:00
Cardiovascular:: Regular rate and rhythm
Respiratory:: Bilateral: CTA
Lung Excursion:: Normal
Abdomen:: Nontender and Soft
Extremity Edema:: None: Bilateral:
Johnston Catheter: Yes
--- NOTE | 2023-12-10 15:33 | W.PN.UPDATE ---
Update Note
Progress Note Update
We recommend keeping the chest tube clamped overnight. If patient does not become symptomatic then repeat CXR in early am tomorrow. If no PTX we will remove the chest tube. If she develops chest pain, SOB or hypoxia unclamp and get STAT portable
CXR
--- NOTE | 2023-12-10 16:15 | PTOTSP ---
Addendum entered and electronically signed by ST Alexis 12/10/23 16:18:
*Liquids via tsp or cup
Original Note:
Video Swallow Examination
Patient has had slight changes in swallowing function compared to recent video swallow study 12/08/2023. She currently presents with mild-moderate oral and at least moderate pharyngeal dysphagia for consistencies assessed. Etiology of dysphagia is
CVA. Patient had aspiration with an inconsistent sensory response (cough) with thin liquids via tsp and deep laryngeal penetration with mildly thick liquids via tsp. No new deep penetration observed with moderately thick liquids via tsp, cup, or
puree. Please see patient care note for full details of penetration/aspiration and swallowing physiology.
Recommend:
1. IDDSI Level 4 (Puree), IDDSI Level 3 (Moderately Thick Liquids)
2. Strategies: full supervision/assistance, slow rate, double swallows, alternate solids/liquids, oral care afterwards
3. Medications - crushed in puree
4. Aspiration Risk Hydration Protocol - ice chips after oral care with supervision
5. Dysphagia therapy at the acute care level for patient/family education and rehabilitation.
6. RD consult to monitor nutrition/hydration given significant diet modifications.
[2023-12-10] MEDS: TYLENOL 1000 MG PO ×2 (17:24→21:54)
[2023-12-10] MEDS: NEUTRA-PHOS POWDER PACKET 250 MG PO ×2 (17:24→21:54)
[2023-12-10] MEDS: LIDOCAINE 4% PATCH 1 PATCH TOPICAL (17:25)
[2023-12-10] MEDS: LIPITOR 10 MG PO (17:25)
[2023-12-10] MEDS: LEVOTHROID 37.5 MCG IV (17:53)
[2023-12-11] VITALS (19 sets, daily range): BP systolic 120–164; BP diastolic 61–97; PULSE 74–84; O2SAT 97; BMI 31.1
[2023-12-11] MEDS: ZOSYN 50 IV ×2 (01:03→06:04)
[2023-12-11] MEDS: 0.45% NACL with KCL 20 MEQ 1000 IV ×2 (01:05→12:35)
[2023-12-11 05:46] LABS: Hematocrit 38.5 % (37.0-47.0); Hemoglobin 12.5 g/dL (12.0-16.0); Mean Corp Hgb Conc. 32.5 g/dL (33.0-37.0); Mean Corpuscular Hgb 25.5 pg (27.0-31.0); Mean Corpuscular Volume 78.4 fL (81.0-99.0); Mean Platelet Volume 10.4 fL (7.4-10.4); Platelet Count 174 10^3/uL (130-400); Red Blood Cell Count 4.91 10^6/uL (4.20-5.40); Red Cell Dist. Width 13.9 % (11.5-14.5); White Blood Cell Count 13.6 10^3/uL (4.8-10.8)
[2023-12-11] MEDS: SYNTHROID 50 MCG PO (06:04)
[2023-12-11 06:23] LABS: Magnesium 1.6 mg/dl (1.6-2.3); Phosphorus 2.7 mg/dl (2.5-4.5)
--- NOTE | 2023-12-11 07:37 | W.PN.HOSP.TC ---
Today's Communication/Plan
-
see bold
Assessment / Plan
Assessment / Plan
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 Await brain MRI. Neurology following. 12/07 VSE shows aspiration. 12/[address] Dobbhoff tube due to resistance. Continue aspirin/statin. Continue PT/OT/SPL. 12/09, repeat VSE
with improvement, tolerating pur�ed diet with honey thickened liquids
Acute TME -likely multifactorial etiology including acute stroke, acute kidney injury, volume depletion, etc. continues to improve
KIMBERLY -likely due to profound volume depletion, acute urinary retention, etc. Creatinine coming down. Appreciate nephrology input, continue IV fluids, hold losartan.
Hypovolemic shock -s/p Levophed. Shock due to profound volume depletion. Clinically doubt sepsis. Blood pressure improved.
Right iatrogenic pneumothorax status post chest tube 12/07/23. Appreciate pulmonology input, continue management as per pulmonology
Leukocytosis -WBC trending down, procalcitonin elevated at 0.40, no fever, blood cultures negative, no source of infection identified. Will stop zosyn and monitor off abx. S/p vancomycin
Hypokalemia -replete prn.
Hypomagnesemia�replete as needed.
Hypophosphatemia�replete as needed
QTc prolongation�resolved
Hypernatremia�resolved with D5W
Acute urinary retention -Maldonado catheter inserted in the emergency room. Maintain for now.
High anion gap metabolic acidosis -likely due to KIMBERLY, starvation, etc. Trace urine ketones noted. Bicarbonate now normal. Resolved.
Lactic acidosis -likely due to profound volume depletion, KIMBERLY. Lactate normalized.
Mild traumatic rhabdomyolysis -due to fall, stroke, immobility. IV fluids as above. CPK normalized
Hypothyroidism -TSH 1.22. Resume oral levothyroxine
Essential hypertension -hypotension related to profound volume depletion, improving with IV fluids. Hold losartan for KIBMERLY.
Hyperlipidemia -on atorvastatin.
DTI of sacrum, left heel and upper back...Right heel with stage 1 PI - wound care, turn patient Q2H
Left knee pain� knee x-ray with OA, started Tylenol
DVT prophylaxis� subcu lovenox
DNR
Updated niece/POA 12/08, 12/09
Physical exam:
Gen-frail, elderly, NAD
HEENT-NC, AT, anicteric, dry oral mucous membranes
Neck-supple
CV-reg, no M, +S1/S2
Lungs-clear B/L
Abd-soft, NT, ND
Ext-no edema
Musculoskeletal-no cyanosis, clubbing
Skin-DTI of sacrum, left heel and upper back...Right heel with stage 1 PI
Eimip-widj-ebxxh neglect, left hemiparesis
Anticipated Discharge: > 48 hours
Subjective/Interval History
-
Date of Service: December 11, 2023
Tolerating her pureed diet. Having loose stools. No fever, no vomiting.
Objective Data
-
Labs:
Laboratory Results
12/11/23
05:11
WBC 13.6 H
Hgb 12.5
Hct 38.5
Plt Count 174
Vital Signs:
Vital Signs
Temp Pulse Resp BP Pulse Ox
97.8 F 64 12 137/61 96
12/11/23 04:16 12/11/23 02:00 12/11/23 02:00 12/11/23 02:00 12/11/23 02:14
I&O
12/10/23 12/11/23 12/12/23
06:59 06:59 06:59
Intake Total 2130 / 2130
Output Total 1275 / 1275 1100 / 1100
Balance 855 / 855 -1100 / -1100
[2023-12-11] MEDS: HEPARIN 5000 UNITS SC ×2 (08:48→20:55)
[2023-12-11] MEDS: NEUTRA-PHOS POWDER PACKET 250 MG PO ×4 (08:50→22:42)
[2023-12-11] MEDS: LOW STRENGTH ASPIRIN 81 MG PO (08:50)
[2023-12-11] MEDS: TYLENOL 1000 MG PO ×3 (08:50→22:43)
[2023-12-11] MEDS: LIDOCAINE 4% PATCH 1 PATCH TOPICAL (08:50)
--- NOTE | 2023-12-11 09:14 | W.PN.PUL3 ---
Today's Communication / Plan
-
Clamp overnight, AM CXR appears stable
IR to discontinue tube today
Diet advancement per team, speech following
Once tube removed, and patient has no recurrence of ptx-no further testing needed
We will sign off upon discontinuation
Observation and discharge planning per team
Assessment
-
83-year-old woman with past medical history noted, found at home on the floor. Change in mental status, left hemiparesis-CVA suspected. Multiple metabolic derangements found. Severe renal insufficiency, metabolic acidosis, rhabdomyolysis. Not a
candidate for tenecteplase due to timing.
Abrupt onset mental status change-found down at home/left hemiparesis
Shock: Hypovolemic/less likely septic
Leukocytosis on admission possibly hemoconcentrated
Hypokalemia
Urinary retention-Maldonado in place
Anion gap metabolic acidosis-increased lactic acid due to profound volume depletion and shock
Mild rhabdomyolysis-patient was found down at home
Toxic metabolic encephalopathy secondary to above
Acute kidney injury with significant uremia
Right iatrogenic pneumothorax post NG tube placement-status post chest tube 12/07/2023
Conditions present prior admission:
Hypothyroidism
Hypertension
Hyperlipidemia
Plan
Right iatrogenic pneumothorax status post chest tube 12/07/23
Repeat CXR 12/07 showing resolution of ptx
Repeat CXR after waterseal is stable 12/08
No leak in tube this AM, tolerated waterseal overnight
Metabolic acidosis improved on bicarbonate drip.
IV fluid management per nephrology
Follow renal function improving after IV fluid resuscitation
Unlikely to be a great candidate for dialysis at this point.
Replete electrolytes as needed.
Possible infection: So far cultures negative. Clinically no focal evidence
Leukocytosis improving-suspect hemoconcentration due to volume depletion
On empiric antibiotic, low threshold to stop if all cultures negative
Left hemiparesis: Suspect acute CVA. Was not a candidate for tenecteplase due to timing of present
Neurology following
Antiplatelet/Statins
No evidence for atrial fibrillation, continue telemetry monitoring
ECHO reviewed, essentially normal, biV function preserved
Speech following
VSE results: reviewed below--mild-moderate oral and moderate-severe pharyngeal stages of swallowing; nonoral nutrition means recommended
Likely to need eval for PEG placement per team
GI following
DVT prophylaxis-SCDs for now per
Consider pharmacological DVT prophylaxis in the next 24 hours
Diagnostic Data
CXR 12/07/23- There is a moderate right pneumothorax. Dobbhoff tube tip is in the right lower chest and should be removed.
CXR 12/06/23- LARGE HIATAL HERNIA with adjacent mild chronic subpleural scarring and subsegmental atelectasis in the basilar segments of the lower lobes of both lungs.
VSE 12/08/23- Patient presents with mild-moderate oral and moderate-severe pharyngeal stages of swallowing. Aspiration with an ineffective cough response occurred with thin liquids via tsp. Deep laryngeal penetration occurred with mildly thick and
moderately thick liquids. Patient could not clear moderate pharyngeal residue with puree. Aspiration risk is elevated. Etiology of dysphagia is likely suspected CVA.
Recommend:
1. NPO - consider non-oral means of nutrition/hydration
2. Medications - via non-oral means preferred; otherwise essential meds which cannot be given non-orally crushed in sparing amounts of puree with double swallows and cues to cough
3. Oral care 3-5x daily with suctioning
4. Aspiration Risk Hydration Protocol (ARHP) - ice chips sparingly post oral care with supervision
5. Dysphagia therapy at the acute care level for patient/family education and rehabilitation.
ECHO 12/08/23- Left ventricle is small in size. Normal left ventricular wall thickness. Normal left ventricular systolic function. Left ventricular ejection fraction is 55- 60%. Diastolic function indeterminate. Thickened mitral valve leaflets.
Mitral annular calcification. Mitral valve opens normally. Trace mitral regurgitation. Trileaflet aortic valve. Thickened aortic valve with normal leaflet excursion. Aortic sclerosis without stenosis. Aortic annular calcification. Trace aortic
regurgitation is seen. Mild ascending aorta dilatation -3.8 cm. The aortic arch is normal in caliber. There is no cardiac embolic source seen. However if clinical suspicion is high would suggest TOM.
Subjective Data
-
Date of Service:
Date of Service: December 11, 2023
Chief Complaint: Pulmonary Follow Up
Subjective:
no acute events on
remains stable on room air
chest tube without leak
Objective Data
Data Reviewed
Vital Signs / I&O / Oxygen:
Vital Signs
Temp Pulse Resp BP Pulse Ox
97.5 F 63 15 136/74 95
12/11/23 07:54 12/11/23 07:30 12/11/23 07:30 12/11/23 06:00 12/11/23 07:30
Intake and Output
12/10/23 12/11/23 12/12/23
06:59 06:59 06:59
Intake Total 2130 / 2130 1020 / 1020
Output Total 1275 / 1275 1100 / 1100
Balance 855 / 855 -80 / -80
SaO2 95
Nasal Cannula flow liters per 2
minute
Physical Exam
General: Comfortable and Other (NAD)
HEENT: Normocephalic, Anicteric and Other (dry MM, poor oral hygiene)
Cardiovascular: S1-S2, Regular Rhythm and Peripheral Edema
Respiratory: Clear, Non-Labored Respirations and Chest Tube (no leak/on suction)
GI: Soft, Non Distended and Non Tender
Neurology: Awake, Alert, Oriented (to self) and Other (cognitive dysfunction, answers simple questions)
Skin: Warm and Dry
Labs/Micro/Reports
Lab Data
12/11/23 05:11
Microbiology
12/06/23 18:25 Blood/Venous Blood Culture - Preliminary
No Growth in 4 days- Final report to follow
12/06/23 11:11 Blood/Venous Blood Culture - Preliminary
No Growth in 4 days- Final report to follow
12/06/23 19:32 Nose MRSA Screen - Final
No Methicillin Resistant Staphylococcus aureus isolated.
--- NOTE | 2023-12-11 09:53 | CM ---
Patient with Dx Acute stroke -with left hemiparesis and visual field defects, Acute TME, KIMBERLY, pneumothorax. Room air. Chest tube clamped overnight. Receiving IV Zosyn. ST - dysphagia diet. PT/OT recommends acute rehab.
Spoke with Caron Bella, niece who is POA, residing in [place]; she spoke with the patient yesterday, and she has been getting updates from Dr Skaggs. She is currently in [place] with her sister. They will be driving up to [place] tomorrow morning, and will be here
tomorrow afternoon. She wishes to discuss d/c plans after she arrives here tomorrow.
Plan meet with daughters tomorrow for d/c planning.
--- NOTE | 2023-12-11 09:57 | PTCARENOTE ---
Pt received from previous shift. Pt AAO. Pt without loose BM this morning. Maldonado care provided, urine yellow. Lidocaine patch applied to left knee, dated and initialed. Chest tube maintained to water seal, dressing clean, dry and intact. No
crepitus. Pt took Am pills without complications crushed in apple sauce. add on BNP sent to lab. Pt ordered breakfast following diet order. call grullon in reach. Please see nursing shift assessment for full head to toe.
[2023-12-11 10:10] LABS: Blood Urea Nitrogen 36 mg/dl (7-17); Calcium 8.1 mg/dl (8.4-10.2); Carbon Dioxide 28 mmol/L (22-30); Chloride 105 mmol/L (98-107); Estimated Creatinine Clearance 38 ml/min; Glucose 88 mg/dl (70-99); Potassium 3.8 mmol/L (3.5-5.1); Sodium 136 mmol/L (135-145); eGFR 45.48
--- NOTE | 2023-12-11 11:37 | PN.IRAD.UPD ---
Update Note - IRAD
- -
Right side chest tube removed at bedside. New vaseline and dry,clean dressing placed over site. Patient tolerated procedure well. RN notified
--- NOTE | 2023-12-11 12:20 | WOUNDNOTE ---
RIGHT HIP-BLANCHABLE RED
--- NOTE | 2023-12-11 12:21 | WOUNDNOTE ---
UPPER BACK/SPINE
--- NOTE | 2023-12-11 12:22 | WOUNDNOTE ---
WO RN NOTE: Patient visited to follow up on multiple wounds. Patient awake and alert and able to answer questions. She just started on pureed diet and ate about 30% of breakfast. All wounds appear stable when compared to pictures of prior
assessment. Staff should continue all wound care and preventative skin care measures. Patient was positioned on yybs-elxh-ojeu lying position with air cushion under sacrum. This magazine writer discussed wounds with patient and explained that sacral wound is
an evolving DTI and may worsen. Also explained rationale of off-loading, wound care and need for protein and calories in the diet. Students Angie and Lee assisted with assessment and RN Loly given update. Will continue to follow as needed.
--- NOTE | 2023-12-11 12:50 | PTOTSP ---
Dysphagia therapy
See updated swallowing strategies below.
Recommend:
1. IDDSI Level 4 (Puree), IDDSI Level 3 (Moderately Thick Liquids)
2. Strategies: full supervision/assistance, TUCK CHIN, single sips/bites, slow rate, double swallows and/or alternate solids/liquids, oral care afterwards
3. Medications - crushed in puree
4. Aspiration Risk Hydration Protocol - ice chips after oral care with supervision
5. Dysphagia therapy at the acute care level for patient/family education and rehabilitation.
[2023-12-11] MEDS: LIPITOR 10 MG PO (17:34)
[2023-12-12] VITALS (18 sets, daily range): BP systolic 134–187; BP diastolic 62–115; PULSE 85–92; O2SAT 96; BMI 31.1
[2023-12-12] MEDS: 0.45% NACL with KCL 20 MEQ 1000 IV ×2 (01:10→12:16)
--- NOTE | 2023-12-12 03:37 | PTCARENOTE ---
Pt has been able to follow my finger when checking her vision. She does not gaze to her R as much and seems to be focusing better. She forgot the month but otherwise is oriented and Moving well, Her L hip and leg still have miles with movement. She
has difficulty moving the L leg up when asked for NIHSS test. Monitor is NSR and BP is stable. She is on room air with Pox of 97%.
[2023-12-12 05:13] LABS: Hematocrit 35.9 % (37.0-47.0); Hemoglobin 11.8 g/dL (12.0-16.0); Mean Corp Hgb Conc. 32.9 g/dL (33.0-37.0); Mean Corpuscular Hgb 25.4 pg (27.0-31.0); Mean Corpuscular Volume 77.4 fL (81.0-99.0); Platelet Count 151 10^3/uL (130-400); Red Blood Cell Count 4.64 10^6/uL (4.20-5.40); Red Cell Dist. Width 13.9 % (11.5-14.5); White Blood Cell Count 14.4 10^3/uL (4.8-10.8)
[2023-12-12] MEDS: SYNTHROID 50 MCG PO (05:13)
[2023-12-12 05:33] LABS: Blood Urea Nitrogen 27 mg/dl (7-17); Calcium 7.7 mg/dl (8.4-10.2); Carbon Dioxide 24 mmol/L (22-30); Chloride 105 mmol/L (98-107); Estimated Creatinine Clearance 51 ml/min; Glucose 78 mg/dl (70-99); Magnesium 1.4 mg/dl (1.6-2.3); Phosphorus 2.8 mg/dl (2.5-4.5); Potassium 3.7 mmol/L (3.5-5.1); Sodium 135 mmol/L (135-145); eGFR > 60.00
--- NOTE | 2023-12-12 07:45 | W.PN.HOSP.TC ---
Today's Communication/Plan
-
Resume losartan
Cap IV fluids
Consult physiatry for acute rehab
Assessment / Plan
Assessment / Plan
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 Brain MRI w/ acute/subacute CVA nonhemorrhagic infarcts in the posterior right occipital lobe, bilateral frontal lobe right greater than left and das radiata right greater than left.
Neurology following. 12/07 VSE shows aspiration. 12/[address] Dobbhoff tube due to resistance. 12/09, repeat VSE with improvement, tolerating pur�ed diet with honey thickened liquids. Continue aspirin/statin. Continue PT/OT/SPL. Neuro rec
Holter cardiac monitoring and if this is negative pursue implanted application tester (LINQ) outpatient.
Acute TME -likely multifactorial etiology including acute stroke, acute kidney injury, volume depletion, etc. Continues to improve
KIMBERLY -likely due to profound volume depletion, acute urinary retention, etc. Creatinine coming down. Appreciate nephrology input, resolved, cap IVFs
Hypovolemic shock -s/p Levophed. Shock due to profound volume depletion. Clinically doubt sepsis. Blood pressure improved.
Right iatrogenic pneumothorax status post chest tube 12/07/23. Chest tube removed 12/11/2023, doing well, pulmonary signed off.
Leukocytosis -WBC trending down, procalcitonin elevated at 0.40, no fever, blood cultures negative, no source of infection identified. Status post Zosyn and vancomycin, monitor off antibiotics
Hypokalemia -replete prn.
Hypomagnesemia�replete as needed.
Hypophosphatemia�replete as needed
QTc prolongation�resolved
Hypernatremia�resolved with D5W
Acute urinary retention -Maldonado catheter inserted in the emergency room. Maintain for now.
High anion gap metabolic acidosis -likely due to KIMBERLY, starvation, etc. Trace urine ketones noted. Bicarbonate now normal. Resolved.
Lactic acidosis -likely due to profound volume depletion, KIMBERLY. Lactate normalized.
Mild traumatic rhabdomyolysis -due to fall, stroke, immobility. CPK normalized
Hypothyroidism -TSH 1.22. Resumed oral levothyroxine
Essential hypertension -blood pressure elevated, resume losartan 100 mg daily
Hyperlipidemia -on atorvastatin.
DTI of sacrum, left heel and upper back...Right heel with stage 1 PI - wound care, turn patient Q2H
Left knee pain� knee x-ray with OA, started Tylenol
DVT prophylaxis� subcu lovenox
DNR
Updated niece/POA 12/11
Total time spent to see the patient on the floor, examine the patient, review data and lab results, discuss treatment plan with patient, nursing staff around 51 minutes.
Physical exam:
Gen-frail, elderly, NAD
HEENT-NC, AT, anicteric, dry oral mucous membranes
Neck-supple
CV-reg, no M, +S1/S2
Lungs-clear B/L
Abd-soft, NT, ND
Ext-no edema
Musculoskeletal-no cyanosis, clubbing
Skin-DTI of sacrum, left heel and upper back...Right heel with stage 1 PI
Unldh-sbcn-qhwbr neglect, left hemiparesis, improved
Improving dysarthria
Anticipated Discharge: 24 - 48 hours
Subjective/Interval History
-
Date of Service: December 12, 2023
Chest tube removed yesterday. She denies shortness of breath. She tolerated her pur�ed diet. She continues to improve. No fever, no vomiting.
Objective Data
-
Labs:
Laboratory Results
12/12/23
04:47
WBC 14.4 H
Hgb 11.8 L
Hct 35.9 L
Plt Count 151
Sodium 135
Potassium 3.7
Chloride 105
Carbon Dioxide 24
BUN 27 H
Creatinine 0.9
Glucose 78
Calcium 7.7 L
Vital Signs:
Vital Signs
Temp Pulse Resp BP Pulse Ox
97.9 F 78 17 150/70 95
12/12/23 03:45 12/12/23 05:00 12/12/23 05:00 12/12/23 04:00 12/12/23 05:00
I&O
12/11/23 12/12/23 12/13/23
06:59 06:59 06:59
Intake Total 1260 / 1260 1540 / 1540
Output Total 1106 / 1106 1175 / 1175
Balance 154 / 154 365 / 365
--- NOTE | 2023-12-12 07:57 | VATNOTE ---
During routine assessment, infiltrate of Levophed in pt's L wrist and midline infiltrate in pt's R upper arm both noted to be resolved.
[2023-12-12] MEDS: LIDOCAINE 4% PATCH 1 PATCH TOPICAL (09:19)
[2023-12-12] MEDS: NEUTRA-PHOS POWDER PACKET 250 MG PO ×4 (09:19→21:03)
[2023-12-12] MEDS: HEPARIN 5000 UNITS SC ×2 (09:19→20:58)
[2023-12-12] MEDS: TYLENOL 1000 MG PO ×3 (09:19→21:03)
[2023-12-12] MEDS: LOW STRENGTH ASPIRIN 81 MG PO (09:20)
[2023-12-12] MEDS: MAGNESIUM SULFATE 50 IV (09:22)
--- NOTE | 2023-12-12 09:22 | W.PN.PUL3 ---
Today's Communication / Plan
-
Chest tube removed 12/10, doing well
Remains stable on room air
Can repeat chest imaging as needed if symptoms change
Ongoing CVA management, diet advancement per speech
We will sign off at this time, please call with questions
Assessment
-
83-year-old woman with past medical history noted, found at home on the floor. Change in mental status, left hemiparesis-CVA suspected. Multiple metabolic derangements found. Severe renal insufficiency, metabolic acidosis, rhabdomyolysis. Not a
candidate for tenecteplase due to timing.
Abrupt onset mental status change-found down at home/left hemiparesis
Shock: Hypovolemic/less likely septic
Leukocytosis on admission possibly hemoconcentrated
Hypokalemia
Urinary retention-Maldonado in place
Anion gap metabolic acidosis-increased lactic acid due to profound volume depletion and shock
Mild rhabdomyolysis-patient was found down at home
Toxic metabolic encephalopathy secondary to above
Acute kidney injury with significant uremia
Right iatrogenic pneumothorax post NG tube placement-status post chest tube 12/07/2023
Conditions present prior admission:
Hypothyroidism
Hypertension
Hyperlipidemia
Plan
Right iatrogenic pneumothorax status post chest tube 12/07/23
Repeat CXR 12/07 showing resolution of ptx
Repeat CXR after waterseal is stable 12/08
No leak in tube this AM, tolerated waterseal overnight
Clamp overnight 12/09, discontinued 12/10
Metabolic acidosis improved on bicarbonate drip.
IV fluid management per nephrology
Follow renal function improving after IV fluid resuscitation
Unlikely to be a great candidate for dialysis at this point.
Replete electrolytes as needed.
Possible infection: So far cultures negative. Clinically no focal evidence
Leukocytosis improving-suspect hemoconcentration due to volume depletion
On empiric antibiotic, low threshold to stop if all cultures negative
Left hemiparesis: Suspect acute CVA. Was not a candidate for tenecteplase due to timing of present
Neurology following
Antiplatelet/Statins
No evidence for atrial fibrillation, continue telemetry monitoring
ECHO reviewed, essentially normal, biV function preserved
Speech following
VSE results: reviewed below--mild-moderate oral and moderate-severe pharyngeal stages of swallowing; nonoral nutrition means recommended
Diet advanced per team
GI following
DVT prophylaxis-SCDs
Diagnostic Data
CXR 12/07/23- There is a moderate right pneumothorax. Dobbhoff tube tip is in the right lower chest and should be removed.
CXR 12/06/23- LARGE HIATAL HERNIA with adjacent mild chronic subpleural scarring and subsegmental atelectasis in the basilar segments of the lower lobes of both lungs.
VSE 12/08/23- Patient presents with mild-moderate oral and moderate-severe pharyngeal stages of swallowing. Aspiration with an ineffective cough response occurred with thin liquids via tsp. Deep laryngeal penetration occurred with mildly thick and
moderately thick liquids. Patient could not clear moderate pharyngeal residue with puree. Aspiration risk is elevated. Etiology of dysphagia is likely suspected CVA.
Recommend:
1. NPO - consider non-oral means of nutrition/hydration
2. Medications - via non-oral means preferred; otherwise essential meds which cannot be given non-orally crushed in sparing amounts of puree with double swallows and cues to cough
3. Oral care 3-5x daily with suctioning
4. Aspiration Risk Hydration Protocol (ARHP) - ice chips sparingly post oral care with supervision
5. Dysphagia therapy at the acute care level for patient/family education and rehabilitation.
ECHO 12/08/23- Left ventricle is small in size. Normal left ventricular wall thickness. Normal left ventricular systolic function. Left ventricular ejection fraction is 55- 60%. Diastolic function indeterminate. Thickened mitral valve leaflets.
Mitral annular calcification. Mitral valve opens normally. Trace mitral regurgitation. Trileaflet aortic valve. Thickened aortic valve with normal leaflet excursion. Aortic sclerosis without stenosis. Aortic annular calcification. Trace aortic
regurgitation is seen. Mild ascending aorta dilatation -3.8 cm. The aortic arch is normal in caliber. There is no cardiac embolic source seen. However if clinical suspicion is high would suggest TOM.
Subjective Data
-
Date of Service:
Date of Service: December 12, 2023
Chief Complaint: Pulmonary Follow Up
Subjective:
no new events, remains stable on room air
chest tube removed yesterday, no new issues
Objective Data
Data Reviewed
Vital Signs / I&O / Oxygen:
Vital Signs
Temp Pulse Resp BP Pulse Ox
97.9 F 78 17 150/70 95
12/12/23 03:45 12/12/23 05:00 12/12/23 05:00 12/12/23 04:00 12/12/23 05:00
Intake and Output
12/11/23 12/12/23 12/13/23
06:59 06:59 06:59
Intake Total 1260 / 1260 1540 / 1540
Output Total 1106 / 1106 1175 / 1175
Balance 154 / 154 365 / 365
SaO2 95
Nasal Cannula flow liters per 2
minute
Physical Exam
General: Comfortable and Other (NAD)
HEENT: Normocephalic, Anicteric and Other (dry MM, poor oral hygiene)
Cardiovascular: S1-S2, Regular Rhythm and Peripheral Edema
Respiratory: Clear and Non-Labored Respirations
GI: Soft, Non Distended and Non Tender
Neurology: Awake, Alert, Oriented (to self) and Other (cognitive dysfunction, answers simple questions)
Skin: Warm and Dry
Labs/Micro/Reports
Lab Data
12/12/23 04:47
12/12/23 04:47
Microbiology
12/06/23 18:25 Blood/Venous Blood Culture - Final
No Growth - Final Report
12/06/23 11:11 Blood/Venous Blood Culture - Final
No Growth - Final Report
--- NOTE | 2023-12-12 11:15 | CM ---
Patient with Dx Acute stroke -with left hemiparesis and visual field defects, Acute TME, KIMBERLY, pneumothorax. Chest tube removed yesterday. Brain MRI today. Room air. Receiving IVF. ST - dysphagia diet. PT/OT recommends acute rehab. Physiatry
Eval pending.
Message from Dr Skaggs that patient may be medically ready for d/c on SUN 12/13.
Spoke with Matty Manrique Liaison; discussed patient status & referral placed. She will contact CM once seen by client application support specialist.
Met with patient who was A/O and conversational. She was aware that her daughters would be arriving today. Informed her that CM will meet with her and her daughters to discuss d/c plans.
Plan follow up with patient/daughters for d/c planning.
Plan follow up after Physiatry Eval.
--- NOTE | 2023-12-12 12:05 | W.PN.NEURO.1 ---
Today's Communication / Plan
-
-Goal normotension, normoglycemia
-Neurologic checks and NIH scales
-Continue cardiac telemetry while inpatient
-Continue aspirin 81 mg daily and Atorvastatin
-Do not recommend TOM given low yield study with risks and very unlikely it would change any management, absence of any bacteremia or findings of endocarditis
-Would recommend in outpatient follow up that she start with 1-2 weeks of Holter cardiac monitoring and if this is negative pursue implanted gambling monitor (LINQ)
-Aspiration precautions
-Minimize sedating medications
-Planning for acute rehab
-Understands my recommendation not to drive, my office will report to [facility] as she has a left sided homonymous hemianopia due to right ELECTRICIAN SHIP ischemic stroke
Will follow as needed call with questions and concerns
Neuro Assessment/Plan
Assessment
83 year old woman presenting with left sided weakness, hypotension and KIMBERLY, likely hypovolemic shock, toxic metabolic encephalopathy.
MRI brain with multi territory acute infarcts in right ELECTRICIAN SHIP, right and left subcortical areas
May be proximal embolic source from aorta or cardiac embolism, less likely but possible that some of this is a watershed stroke given hypovolemic stroke
ESUS (embolic stroke of undetermined source)
TTE with normal left atrium, no thrombus, no vegetations
No bacteremia or signs of infective endocarditis
Risk factors of hypertension, hyperlipidemia, age, family history of stroke
Carotid ultrasound with plaque and less than 50% stenosis bilaterally
Subjective/Objective
Subjective Data
Date of Service: December 12, 2023
MRI brain today showed acute strokes, patient with no headache, needs to have bowel movement, knows she had a stroke
Objective Data
Vital Signs
Temp Pulse Resp BP Pulse Ox
98.1 F 71 18 175/89 94
12/12/23 11:41 12/12/23 09:00 12/12/23 09:00 12/12/23 08:03 12/12/23 09:00
Lab Results
12/12/23 04:47
12/12/23 04:47
Sodium 135 mmol/L (135-145) 12/12/23 04:47
Potassium 3.7 mmol/L (3.5-5.1) 12/12/23 04:47
BUN 27 mg/dl (7-17) H 12/12/23 04:47
Glucose 78 mg/dl (70-99) 12/12/23 04:47
Calcium 7.7 mg/dl (8.4-10.2) L 12/12/23 04:47
Phosphorus 2.8 mg/dl (2.5-4.5) 12/12/23 04:47
LDL Cholesterol, Calc 43 mg/dl 12/07/23 05:03
Patient Allergies
lisinopril [From Prinivil] Allergy (Verified 12/06/23 11:02)
coughing
Chocolate Allergy (Uncoded 12/06/23 11:02)
Mouth sores
Review of Systems
-
History Source: Patient
All other systems: Reviewed and negative
Constitutional: No Symptoms
EENT: No Symptoms Reported
Respiratory: No Symptoms
Cardiac: No Symptoms
Abdomen/GI: No Symptoms
Genitourinary: No Symptoms
Musculoskeletal: No Symptoms
Skin: No Symptoms
Neuro: See existing Neuro Note
Endocrine: No Symptoms
Hematologic / Lymphatic: No Symptoms
Allergy / Immunology: No Symptoms
Physical Exam
-
General: No Apparent Distress and Appears Chronically Ill
Eyes: No Ptosis
HEENT: Normocephalic and Atraumatic
Neck: Full Range of Motion
Respiratory: No Dyspnea; Negative Wheezes or Accessory Resp Muscle Use
Cardiac: Regular Rhythm and No Murmur; Negative Irregular Rhythm
GI: Soft and Non-tender
Skin: Unremarkable, Warm and Dry; Negative Rash
Extremities: No Edema
Extended Neurological Exam
Mood & Affect: Mood Unremarkable and Affect Unremarkable
Memory: Reduced
Tremor: Hand Tremor Absent
Involuntary Movement: None
Speech: Quantity Unremarkable and Dysarthric; Negative Expressive Aphasia or Receptive Aphasia
Cranial Nerve II: Left Eye: Pupillary Reactivity Unremarkable, Pupillary Size Unremarkable and Other (Left sided homonymous hemianopia)
Cranial Nerve II: Right Eye: Pupillary Reactivity Unremarkable, Pupillary Size Unremarkable and Other (Left sided homonymous hemianopia)
Cranial Nerves III, IV, : Extraocular Movement: Extraocular Movement Full in all Directions
Muscle Strength, Overall: Other (Mild left arm shoulder abduction and flexion 4/5 weakness)
Pronator Drift: Drift in Left Upper Extremity
Data Reviewed
-
MRI Head: Report Reviewed and Image Reviewed
Carotid Ultrasound: Report Reviewed
Echocardiogram: Report Reviewed
Labs: Report Reviewed
Lipid Profile: Report Reviewed
[2023-12-12] MEDS: KCL 20 MEQ PO (12:14)
[2023-12-12] MEDS: COZAAR 100 MG PO (12:14)
--- NOTE | 2023-12-12 15:56 | CM ---
Addendum entered by Pita Brewer RN 12/12/23 15:57:
Met with patient, henrry Rearodn & Kristy; nieces expressed concern that patient has good memory regarding her house however inquired about her mother who had a while ago. The concern is the group home plan if she is not independent after
rehab.
Discussed possible d/c plan to acute rehab and explained process for acceptance at [facility] including physiatry eval. Henrry Reardon will be staying at the patient's house for a while and is hoping for a facility near [place]. She had a phone call
from Burton at [facility] earlier today.
Plan follow up after Physiatry Eval.
Original Note:
Patient with Dx Acute stroke -with left hemiparesis and visual field defects, Acute TME, KIMBERLY, pneumothorax. Chest tube removed yesterday. Brain MRI today. Room air. Receiving IVF. ST - dysphagia diet. PT/OT recommends acute rehab. Physiatry
Eval pending.
Message from Dr Skaggs that patient may be medically ready for d/c on SUN 12/13.
Spoke with Matty Manrique Liaison; discussed patient status & referral placed. She will contact CM once seen by asbestos abatement technician.
Met with patient who was A/O and conversational. She was aware that her nieces would be arriving today. Informed her that CM will meet with her and her daughters to discuss d/c plans.
Plan follow up with patient/nieces for d/c planning.
Plan follow up after Physiatry Eval.
[2023-12-12] MEDS: LIPITOR 10 MG PO (18:13)
[2023-12-13] VITALS (11 sets, daily range): BP systolic 143–165; BP diastolic 67–91; PULSE 84–86; O2SAT 97; BMI 30.9
[2023-12-13 06:16] LABS: Blood Urea Nitrogen 20 mg/dl (7-17); Calcium 7.7 mg/dl (8.4-10.2); Carbon Dioxide 21 mmol/L (22-30); Chloride 108 mmol/L (98-107); Estimated Creatinine Clearance 57 ml/min; Glucose 76 mg/dl (70-99); Magnesium 1.5 mg/dl (1.6-2.3); Phosphorus 2.8 mg/dl (2.5-4.5); Potassium 4.1 mmol/L (3.5-5.1); Sodium 134 mmol/L (135-145); eGFR > 60.00
[2023-12-13 06:36] LABS: Hematocrit 35.3 % (37.0-47.0); Hemoglobin 11.6 g/dL (12.0-16.0); Mean Corp Hgb Conc. 32.9 g/dL (33.0-37.0); Mean Corpuscular Hgb 25.4 pg (27.0-31.0); Mean Corpuscular Volume 77.2 fL (81.0-99.0); Mean Platelet Volume 9.8 fL (7.4-10.4); Platelet Count 143 10^3/uL (130-400); Red Blood Cell Count 4.57 10^6/uL (4.20-5.40); Red Cell Dist. Width 13.9 % (11.5-14.5); White Blood Cell Count 13.5 10^3/uL (4.8-10.8)
[2023-12-13] MEDS: SYNTHROID 50 MCG PO (06:50)
--- NOTE | 2023-12-13 08:08 | W.PN.HOSP.TC ---
Today's Communication/Plan
-
Remove Maldonado for void trial today
Assessment / Plan
Assessment / Plan
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 Brain MRI w/ acute/subacute CVA nonhemorrhagic infarcts in the posterior right occipital lobe, bilateral frontal lobe right greater than left and das radiata right greater than left.
Neurology following. 12/07 VSE shows aspiration. 12/[address] Dobbhoff tube due to resistance. 12/09, repeat VSE with improvement, tolerating pur�ed diet with honey thickened liquids. Continue aspirin/statin. Continue PT/OT/SPL. Neuro rec
Holter cardiac monitoring and if this is negative pursue implanted gambling monitor (LINQ) outpatient. PT rec acute rehab, physicatry consulted 12/11
Acute TME -likely multifactorial etiology including acute stroke, acute kidney injury, volume depletion, etc. Continues to improve
KIMBERLY -likely due to profound volume depletion, acute urinary retention, etc. Creatinine coming down. Appreciate nephrology input, resolved, cap IVFs
Hypovolemic shock -s/p Levophed. Shock due to profound volume depletion. Clinically doubt sepsis. Blood pressure improved.
Right iatrogenic pneumothorax status post chest tube 12/07/23. Chest tube removed 12/11/2023, doing well, pulmonary signed off.
Leukocytosis -WBC trending down, procalcitonin elevated at 0.40, no fever, blood cultures negative, no source of infection identified. Status post Zosyn and vancomycin, monitor off antibiotics
Hypokalemia -replete prn.
Hypomagnesemia�replete as needed.
Hypophosphatemia�replete as needed
QTc prolongation�resolved
Hypernatremia�resolved with D5W
Acute urinary retention -Maldonado catheter inserted in the emergency room. Remove 12/12 for void trial today
High anion gap metabolic acidosis -likely due to KIMBERLY, starvation, etc. Trace urine ketones noted. Bicarbonate now normal. Resolved.
Lactic acidosis -likely due to profound volume depletion, KIMBERLY. Lactate normalized.
Mild traumatic rhabdomyolysis -due to fall, stroke, immobility. CPK normalized
Hypothyroidism -TSH 1.22. Resumed oral levothyroxine
Essential hypertension -blood pressure elevated, resumed losartan 100 mg daily 12/11
Hyperlipidemia -on atorvastatin.
DTI of sacrum, left heel and upper back...Right heel with stage 1 PI - wound care, turn patient Q2H
Left knee pain� knee x-ray with OA, started Tylenol
DVT prophylaxis� subcu lovenox
DNR
Updated niece/POA 12/11
Total time spent to see the patient on the floor, examine the patient, review data and lab results, discuss treatment plan with patient, nursing staff around 50 minutes.
Physical exam:
Gen-frail, elderly, NAD
HEENT-NC, AT, anicteric, MMM
Neck-supple
CV-reg, no M, +S1/S2
Lungs-clear B/L
Abd-soft, NT, ND
Ext-no edema
Musculoskeletal-no cyanosis, clubbing
Skin-DTI of sacrum, left heel and upper back...Right heel with stage 1 PI
Jflvc-zmxs-plbnv neglect, left hemiparesis, improved
Improving dysarthria
Anticipated Discharge: 24 - 48 hours
Subjective/Interval History
-
Date of Service: December 13, 2023
Patient continues to improve. She is tolerating her diet. No fever, no chest pain. No vomiting. She complains of pain from her Maldonado catheter.
Objective Data
-
Labs:
Laboratory Results
12/13/23 12/13/23
05:30 06:28
WBC 13.5 H
Hgb 11.6 L
Hct 35.3 L
Plt Count 143
Sodium 134 L
Potassium 4.1
Chloride 108 H
Carbon Dioxide 21 L
BUN 20 H
Creatinine 0.8
Glucose 76
Calcium 7.7 L
Vital Signs:
Vital Signs
Temp Pulse Resp BP Pulse Ox
98.0 F 81 20 160/84 97
12/13/23 04:06 12/13/23 07:30 12/13/23 07:30 12/13/23 06:44 12/13/23 07:30
I&O
12/12/23 12/13/23 12/14/23
06:59 06:59 06:59
Intake Total 1540 / 1540
Output Total 1175 / 1175 950 / 950 600 / 600
Balance 365 / 365 -950 / -950 -600 / -600
[2023-12-13] MEDS: LOW STRENGTH ASPIRIN 81 MG PO (08:24)
[2023-12-13] MEDS: COZAAR 100 MG PO (08:24)
[2023-12-13] MEDS: TYLENOL 1000 MG PO ×3 (08:26→20:10)
[2023-12-13] MEDS: MAGNESIUM SULFATE 50 IV (08:28)
[2023-12-13] MEDS: KCL 20 MEQ PO (08:32)
[2023-12-13] MEDS: LIDOCAINE 4% PATCH 1 PATCH TOPICAL (08:41)
[2023-12-13] MEDS: HEPARIN 5000 UNITS SC ×2 (08:42→20:10)
[2023-12-13] MEDS: LIPITOR 10 MG PO (16:39)
[2023-12-13 21:23] LABS: Urine Albumin Trace (Neg - Trace); Urine Bilirubin Negative (Negative); Urine Character Clear (Clear); Urine Color Yellow; Urine Glucose Negative (Negative); Urine Ketone Trace (Negative); Urine Leukocyte Negative (Negative); Urine Nitrite Negative (Negative); Urine Occult Blood 2+ (Negative); Urine Specific Gravity 1.015 (<1.030); Urine Urobilinogen Negative (Neg - 1+)
[2023-12-13 21:36] LABS: Urine Red Blood Cell >100 /HPF (0-2); Urine Squamous Cell 0-2 /LPF (Few); Urine White Cell 0-2 /HPF (0-5)
--- NOTE | 2023-12-13 21:38 | PTCARENOTE ---
Patient complaining of vaginal itch. No discharge noted. teacher physically impaired provider made aware and ordered UA.
[2023-12-14] VITALS (13 sets, daily range): BP systolic 122–174; BP diastolic 68–92; PULSE 83; O2SAT 98; BMI 30.3
[2023-12-14 03:50] LABS: Hematocrit 35.1 % (37.0-47.0); Hemoglobin 11.8 g/dL (12.0-16.0); Mean Corp Hgb Conc. 33.6 g/dL (33.0-37.0); Mean Corpuscular Hgb 25.2 pg (27.0-31.0); Mean Platelet Volume 9.9 fL (7.4-10.4); Platelet Count 147 10^3/uL (130-400); Red Blood Cell Count 4.68 10^6/uL (4.20-5.40); Red Cell Dist. Width 14.1 % (11.5-14.5)
[2023-12-14 04:25] LABS: Blood Urea Nitrogen 16 mg/dl (7-17); Calcium 8.2 mg/dl (8.4-10.2); Carbon Dioxide 21 mmol/L (22-30); Chloride 107 mmol/L (98-107); Estimated Creatinine Clearance 50 ml/min; Glucose 65 mg/dl (70-99); Magnesium 1.7 mg/dl (1.6-2.3); Phosphorus 2.9 mg/dl (2.5-4.5); Potassium 4.5 mmol/L (3.5-5.1); Sodium 134 mmol/L (135-145); eGFR > 60.00
--- NOTE | 2023-12-14 07:53 | W.PN.HOSP.TC ---
Today's Communication/Plan
-
Stable for telemetry
Assessment / Plan
Assessment / Plan
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 Brain MRI w/ acute/subacute CVA nonhemorrhagic infarcts in the posterior right occipital lobe, bilateral frontal lobe right greater than left and das radiata right greater than left.
Neurology following. 12/07 VSE shows aspiration. 12/[address] Dobbhoff tube due to resistance. 12/09, repeat VSE with improvement, tolerating pur�ed diet with honey thickened liquids. Continue aspirin/statin. Continue PT/OT/SPL. Neuro rec
Holter cardiac monitoring and if this is negative pursue implanted shelter monitor (LINQ) outpatient. Discussed w/ Dr. Gutierrez, who will arrange for this. PT rec acute rehab, physicatry consulted 12/11
Acute TME -likely multifactorial etiology including acute stroke, acute kidney injury, volume depletion, etc. Continues to improve
KIMBERLY -likely due to profound volume depletion, acute urinary retention, etc. Creatinine coming down. Appreciate nephrology input, resolved s/p IVFs
Hemorrhoidal bleeding�hemoglobin stable, start Anusol suppository
Vaginal itching�denies whitish discharge. Likely from atrophic vaginitis, start estrogen cream. Consider Diflucan if it does not improve
Hypovolemic shock -s/p Levophed. Shock due to profound volume depletion. Clinically doubt sepsis. Blood pressure improved.
Right iatrogenic pneumothorax status post chest tube 12/07/23. Chest tube removed 12/11/2023, doing well, pulmonary signed off.
Leukocytosis -WBC trending down, procalcitonin elevated at 0.40, no fever, blood cultures negative, no source of infection identified. Status post Zosyn and vancomycin, monitor off antibiotics
Hypokalemia -replete prn.
Hypomagnesemia�replete as needed.
Hypophosphatemia�replete as needed
QTc prolongation�resolved
Hypernatremia�resolved with D5W
Acute urinary retention -Maldonado catheter inserted in the emergency room. Removed 12/12 for void trial, she is voiding well.
High anion gap metabolic acidosis -likely due to KIMBERLY, starvation, etc. Trace urine ketones noted. Bicarbonate now normal. Resolved.
Lactic acidosis -likely due to profound volume depletion, KIMBERLY. Lactate normalized.
Mild traumatic rhabdomyolysis -due to fall, stroke, immobility. CPK normalized
Hypothyroidism -TSH 1.22. Resumed oral levothyroxine
Essential hypertension -blood pressure improved after resuming losartan 100 mg daily 12/11
Hyperlipidemia -on atorvastatin.
DTI of sacrum, left heel and upper back...Right heel with stage 1 PI - wound care, turn patient Q2H
Left knee pain� knee x-ray with OA, started Tylenol
DVT prophylaxis� subcu lovenox
DNR
Updated niece/POA 12/13
Total time spent to see the patient on the floor, examine the patient, review data and lab results, discuss treatment plan with patient, nursing staff around 52 minutes.
Physical exam:
Gen-frail, elderly, NAD
HEENT-NC, AT, anicteric, MMM
Neck-supple
CV-reg, no M, +S1/S2
Lungs-clear B/L
Abd-soft, NT, ND
Ext-no edema
Musculoskeletal-no cyanosis, clubbing
Skin-DTI of sacrum, left heel and upper back...Right heel with stage 1 PI
Ptfqg-casz-lsjrh neglect, left hemiparesis, improved
Improving dysarthria
Anticipated Discharge: 24 - 48 hours
Subjective/Interval History
-
Date of Service: December 14, 2023
Patient passed her void trial yesterday. She complains of vaginal itching. She had bloody stool, bright red blood with wiping and mixed with stool. No fever, no vomiting.
Objective Data
-
Labs:
Laboratory Results
12/14/23
03:34
WBC 12.0 H
Hgb 11.8 L
Hct 35.1 L
Plt Count 147
Sodium 134 L
Potassium 4.5
Chloride 107
Carbon Dioxide 21 L
BUN 16
Creatinine 0.9
Glucose 65 L
Calcium 8.2 L
Vital Signs:
Vital Signs
Temp Pulse Resp BP Pulse Ox
97.8 F 85 21 170/86 96
12/14/23 04:12 12/14/23 06:00 12/14/23 06:00 12/14/23 06:00 12/14/23 06:00
I&O
12/13/23 12/14/23 12/15/23
06:59 06:59 06:59
Output Total 950 / 950 840 / 840
Balance -950 / -950 -840 / -840
[2023-12-14] MEDS: TYLENOL 1000 MG PO ×2 (08:45→21:11)
[2023-12-14] MEDS: LOW STRENGTH ASPIRIN 81 MG PO (08:55)
[2023-12-14] MEDS: COZAAR 100 MG PO (08:56)
[2023-12-14] MEDS: KCL 20 MEQ PO (08:56)
[2023-12-14] MEDS: LIDOCAINE 4% PATCH 1 PATCH TOPICAL (08:56)
[2023-12-14] MEDS: HEPARIN 5000 UNITS SC ×2 (08:57→21:09)
[2023-12-14] MEDS: ESTRACE 0.01% VAGINAL CREAM 1 APPLIC VAG (10:45)
--- NOTE | 2023-12-14 11:47 | PTCARENOTE ---
pt w/ BRB noted in stool. Physician notified. Hemorrhoids noted. HGB stable. No new orders.
[2023-12-14] MEDS: LOPRESSOR 5 MG IV (12:49)
[2023-12-14] MEDS: TYLENOL PO (17:27)
[2023-12-14] MEDS: ANUSOL HC 25 MG RECTAL ×2 (17:48→21:34)
[2023-12-14] MEDS: LIPITOR 10 MG PO (17:48)
[2023-12-14] MEDS: ESTRACE 0.01% VAGINAL CREAM VAG (21:14)
[2023-12-15] VITALS (8 sets, daily range): BP systolic 112–185; BP diastolic 60–105; PULSE 117; O2SAT 97; BMI 29.7
[2023-12-15] MEDS: SYNTHROID 50 MCG PO (05:22)
[2023-12-15 06:45] LABS: Hematocrit 36.4 % (37.0-47.0); Hemoglobin 12.2 g/dL (12.0-16.0); Mean Corp Hgb Conc. 33.5 g/dL (33.0-37.0); Mean Corpuscular Hgb 25.3 pg (27.0-31.0); Mean Corpuscular Volume 75.4 fL (81.0-99.0); Platelet Count 166 10^3/uL (130-400); Red Blood Cell Count 4.83 10^6/uL (4.20-5.40); Red Cell Dist. Width 14.4 % (11.5-14.5); White Blood Cell Count 14.2 10^3/uL (4.8-10.8)
[2023-12-15 07:11] LABS: Blood Urea Nitrogen 22 mg/dl (7-17); Calcium 8.4 mg/dl (8.4-10.2); Carbon Dioxide 21 mmol/L (22-30); Chloride 108 mmol/L (98-107); Estimated Creatinine Clearance 45 ml/min; Glucose 108 mg/dl (70-99); Magnesium 1.5 mg/dl (1.6-2.3); Phosphorus 2.5 mg/dl (2.5-4.5); Potassium 4.1 mmol/L (3.5-5.1); Sodium 133 mmol/L (135-145)
[2023-12-15] MEDS: COZAAR 100 MG PO (09:00)
[2023-12-15] MEDS: TYLENOL 1000 MG PO ×3 (09:00→21:56)
[2023-12-15] MEDS: KCL 20 MEQ PO (09:00)
[2023-12-15] MEDS: LOW STRENGTH ASPIRIN 81 MG PO (09:00)
[2023-12-15] MEDS: LIDOCAINE 4% PATCH 1 PATCH TOPICAL (09:01)
[2023-12-15] MEDS: HEPARIN 5000 UNITS SC ×2 (09:01→20:31)
--- NOTE | 2023-12-15 09:12 | CON.MD ---
Documented by User: Julieta Gaxiola PA-C 12/16/23 17:55
Consultation - Medical
-
Referring Provider: Arpan Bender
Chief Complaint: CVA
History of Present Illness: Patient is a 83 year old female with PMH of (hypertension on losartan, hyperlipidemia on statin, chronic hypokalemia on p.o. potassium and hypothyroidism) who presented to [facility] by EMS on 12/05 with
left-sided weakness. Patient was found on her floor by a neighbor. Last date of contact was Friday. No CT evidence for acute intracranial hemorrhage or transcortical infarct. 5.5 mm low-attenuation lesion in the right thalamus which is
likely either cytotoxic edema or encephalomalacia secondary to a lacunar infarct. 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
right greater than left. Due to unclear time of onset of symptoms, likely greater than 6 hours based on metabolic disturbances, patient not a candidate for either tenecteplase or for arterial thrombectomy. Maldonado catheter placed in ER and draining
dark urine. Nephrology consulted-Suspected septic shock, Acute Kidney Injury,Urinary Retention ,mild Rhabdomyolysis. Aggressive IV fluid and pressors for volume depletion/hypotension. Underwent NG tube placement with subsequent right pneumothorax.
Urgent chest tube placed by IR on 12/07/23. Chest x-ray postprocedure shows reexpansion of lung.
MRI Brain-LARGE HIATAL HERNIA
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
2. No significant edema or mass effect. No midline shift. No downward herniation.
3. The bilaterality suggests the possibility of an embolic event.
4. Unusual heterogeneous faint increased T2 signal intensity in the basal ganglia and caudate bilaterally, symmetric. Likely related to chronic age-related changes.
Chest xray- 12/11/23
No pneumothorax with a right chest tube clamped.
2. Haziness of each hemidiaphragm, most suggestive of subsegmental atelectasis, also unchanged. Unchanged elevation of left hemidiaphragm.
Past Medical History: Cancer (Skin cancer), HTN, Hypercholesterolemia and Other (Migraines)
Procedure History: Rectal tumor resectioning
Family History: Non-contributory.
Social History:
Functional Level Premorbidly: Independent with all activities with use of single cane
Functional Level Currently:Toileting mod assist, toilet transfer- mod assist, bed mobility�min assist, transfer sit to stand�min assist, stand to sit�min assist, ambulated 15 feet x 2 to/from bathroom with rolling walker moderate assist.
Tobacco: Denies
Alcohol: Denies
Drug use: Denies
Lives with: Alone
24-hour assistance available: has some assistance
Number of floors: 1
# steps to enter: 3
# steps to second floor: none
Potential First floor set up:yes, double sided mobile home
Driving: yes
Occupation: Retired?
�
Allergies:
Allergy/AdvReac Type Severity Reaction Status Date / Time
lisinopril [From Prinivil] Allergy coughing Verified 12/06/23 11:02
Chocolate Allergy Mouth sores Uncoded 12/06/23 11:02
Review of Systems:
Constitutional: (x) Normal _
Eye: (x) Normal _
Ear/Nose/Throat: (x) Normal _
Respiratory: (x) Normal _
Cardiovascular: (x) Normal _
Gastrointestinal: (x) Normal _
Genitourinary: (x) KIMBERLY, shock
Musculoskeletal: (x) weakness
Integumentary: (x) Normal _
Neurologic: (x) CVA
Psychiatric: (x) Normal _
Endocrine: (x) Normal _
Hematologic/Lymphatic: (x) Normal _
Allergic/Immunologic: (x) Normal _
Medications:
Active Current Visit Medication List
Category Date Time Status
Acetaminophen [Tylenol] Med 12/10/23 16:10 Active
1,000 mg PO TID
Anusol Hc Suppository [Anusol Hc] Med 12/14/23 15:35 Active
25 mg RECTAL HS
Aspirin Chewable [Low Strength Aspirin] Med 12/11/23 08:00 Active
81 mg PO DAILY
Atorvastatin [Lipitor] Med 12/06/23 18:00 Active
10 mg PO QPM
Estradiol Vaginal [Estrace 0.01% Vaginal Cream] Med 12/14/23 09:20 Active
See Dose Instructions VAG HS
Flush (0.9% Sodium Chloride) [Flush (Nss)] Med 12/06/23 16:00 Active
See Dose Instructions IV PER PROTOCOL
Heparin Med 12/08/23 20:00 Active
5,000 units SC Q12
Levothyroxine [Synthroid] Med 12/11/23 06:00 Active
50 mcg PO MoTuWeThFrSa@0600
Lidocaine [Lidocaine 4% Patch] Med 12/10/23 16:15 Active
1 patch TOPICAL DAILY
Losartan [Cozaar] Med 12/12/23 11:00 Active
100 mg PO DAILY
Magnesium Oxide Med 12/16/23 20:00 Active
500 mg PO BID
Metoprolol [Lopressor] Med 12/08/23 15:18 Active
5 mg IV Q4HPRN PRN
Potassium Chloride [KCl] Med 12/12/23 11:00 Active
20 meq PO DAILY
Remove Patch [Remove Lidocaine Patch] Med 12/10/23 20:00 Active
See Dose Instructions REMOVE DAILY@2000
Vitals:
Temp Pulse Resp BP Pulse Ox
97.5 F 96 17 125/60 96
12/16/23 15:01 12/16/23 15:01 12/16/23 15:01 12/16/23 15:01 12/16/23 15:01
Height 5 ft 4 in
Actual Weight 77.734 kg
Body Mass Index (BMI) 29.4
Physical Exam:
General Appearance/Observation: Well-developed, well-nourished individual in no apparent distress.
Pain/Comfort Assessment: Denies
Mood/Affect: Appropriate, flat affect, pleasant
Integumentary/Operative Site:
�� Pressure Ulcer Evaluation: Did not visualized heels- had heel protective pads in place
��
�� Other Type of Wound: sacrum per chart. Did not evaluate/visualized DIT
��
Eyes: Conjunctiva/Lids: normal ��� Pupils: pupils equal round and reactive to light and Accommodation
Ears/Nose/Throat: oral mucosa dry,� throat clear.������������ Lips/Teeth/Gums:dry lips
Neck: No muscle spasm or tenderness
Cardiovascular: Heart: regular, no murmur
Pulses: dorsalis pedis 1+ bilaterally
Respiratory: Respiratory Effort/Chest Expansion: normal ������� Auscultation: Clear to auscultation bilaterally
Gastrointestinal: abdomen not tender, no distension, normal abdominal bowel sounds
Genitourinary: No Maldonado
Extremities: Edema: None Cyanosis: None Trophic changes: None
Neurology Exam:
Orientation: Alert, Oriented to self, Place
Memory: Impaired
Higher cortical function
Repetition: Impaired
Comprehension: slow to process
Two step command: Impaired
Naming: intact
Cranial Nerves:
�� CNII: Pupillary light reflex: Intact��� Visual Field: impaired on left
�� CN III, IV, : Extraocular muscles: Intact
�� CN V: Facial Sensation at Forehead: Intact, Maxilla: Intact, Mandible: Intact
�� CN VII: Facial movement: right sided weaknes
�� CN VIII: Hearing: Normal
�� CN IX/X: Speech & swallow: hypophonia, Position of Uvula: Midline
�� CN XI: Shoulder shrug: weak on left
�� CN XII: Tongue protrusion: Midline
Sensory:
�� Light touch: Intact in bilateral upper and lower extremities
��
Reflexes:
�� Biceps: absent bilaterally
�� Brachioradialis: 2+ bilaterally
�� Triceps: 2+ bilaterally
�� Patellar: absent bilaterally
�� Achilles: absent bilaterally
�� Babinski: Down going bilaterally
�� Clonus: None
�� Juaquin: positive on the left
Cerebellar: Dysmetria/Ataxia: impaired on the left with finger to nose coordination
Musculoskeletal:
Motor: (Manual muscle scale 0-5)
Muscle SA EF WE EE FF FA HF KE DF EHL PF
Right� 4 4 4 4 4 4 4 4 5 5 5
Left 3+ 3+ 3 3+ 3+ 3 3 3 5 5 5
Tone: Normal in all extremities
Range of Motion: Passively within normal limits in all extremities
Lab Results
Labs
WBC 14.2 10^3/uL (4.8-10.8) H 12/15/23 06:12
RBC 4.83 10^6/uL (4.20-5.40) 12/15/23 06:12
Hgb 12.2 g/dL (12.0-16.0) 12/15/23 06:12
Hct 36.4 % (37.0-47.0) L 12/15/23 06:12
MCV 75.4 fL (81.0-99.0) L 12/15/23 06:12
MCH 25.3 pg (27.0-31.0) L 12/15/23 06:12
MCHC 33.5 g/dL (33.0-37.0) 12/15/23 06:12
RDW 14.4 % (11.5-14.5) 12/15/23 06:12
Plt Count 166 10^3/uL (130-400) 12/15/23 06:12
Plt Count Comment Yes 12/08/23 04:25
MPV 10.0 fL (7.4-10.4) 12/15/23 06:12
Abs Immat Gran (auto) 0.2 10^3/uL (0-0.05) H 12/07/23 05:03
Absolute Neuts (auto) 17.1 10^3/uL (1.4-6.5) H 12/07/23 05:03
Absolute Lymphs (auto) 0.8 10^3/uL (1.2-3.4) L 12/07/23 05:03
Absolute Monos (auto) 1.2 10^3/uL (0.1-0.6) H 12/07/23 05:03
Absolute Eos (auto) 0.1 10^3/uL (0-0.7) 12/07/23 05:03
Absolute Basos (auto) 0.1 10^3/uL (0-0.2) 12/07/23 05:03
Total Counted 100 12/08/23 04:25
Immature Gran % 1.1 % (0-0.5) H 12/07/23 05:03
Neutrophils % 87.9 % (42.2-75.2) H 12/07/23 05:03
Lymphocytes % 3.9 % (20.5-51.1) L 12/07/23 05:03
Monocytes % 6.3 % (1.7-9.3) 12/07/23 05:03
Eosinophils % 0.5 % (0-6) 12/07/23 05:03
Basophils % 0.3 % (0-2) 12/07/23 05:03
Nucleated RBC % 0 % 12/07/23 05:03
Abs Neuts (Manual) 14.0 10^3/uL (1.4-6.5) H 12/08/23 04:25
Segmented Neutrophils 92 % (42-75) H 12/08/23 04:25
Band Neutrophils 1 % (0-3) 12/08/23 04:25
Lymphocytes (Manual) 5 % (20-51) L 12/08/23 04:25
Monocytes (Manual) 2 % (2-9) 12/08/23 04:25
Myelocytes 2 % (-) 12/06/23 11:11
Normal RBC Morphology No 12/08/23 04:25
Anisocytosis Slight 12/08/23 04:25
Ovalocytes 1+ 12/06/23 11:11
pH 7.47 (7.35-7.45) H 12/06/23 20:44
pCO2 25 mmHg (32-35) L 12/06/23 20:44
pO2 79 mmHg (83-108) L 12/06/23 20:44
HCO3 18.2 mmol/L (21-28) L 12/06/23 20:44
Base Excess -3.5 mmol/L 12/06/23 20:44
ABG O2 Sat (Measured) 97.2 % (94-98) 12/06/23 20:44
O2 Delivery Level 12/06/23 20:44
Sodium 133 mmol/L (135-145) L 12/15/23 06:12
Potassium 4.1 mmol/L (3.5-5.1) 12/15/23 06:12
Chloride 108 mmol/L (98-107) H 12/15/23 06:12
Carbon Dioxide 21 mmol/L (22-30) L 12/15/23 06:12
BUN 22 mg/dl (7-17) H 12/15/23 06:12
Creatinine 1.0 mg/dL (0.6-1.0) 12/15/23 06:12
Estimated Creat Clear 45 ml/min 12/15/23 06:12
eGFR 56.60 12/15/23 06:12
Glucose 108 mg/dl (70-99) H 12/15/23 06:12
Hemoglobin A1c 5.4 % (4.0-5.6) 12/07/23 05:03
Lactic Acid 1.2 mmol/L (0.7-2.0) 12/07/23 01:44
Calcium 8.4 mg/dl (8.4-10.2) 12/15/23 06:12
Phosphorus 2.5 mg/dl (2.5-4.5) 12/15/23 06:12
Magnesium 1.5 mg/dl (1.6-2.3) L 12/15/23 06:12
Total Bilirubin 1.1 mg/dl (0.2-1.3) 12/10/23 04:32
AST 40 U/L (14-36) H 12/10/23 04:32
ALT 21 U/L (0-35) 12/10/23 04:32
Alkaline Phosphatase 94 U/L (38-126) 12/10/23 04:32
Creatine Kinase 80 U/L (30-135) D 12/10/23 04:32
Total Protein 5.0 g/dl (6.3-8.2) L 12/10/23 04:32
Albumin 2.4 g/dl (3.5-5.0) L 12/10/23 04:32
Triglycerides 147 mg/dl (10-149) 12/07/23 05:03
Total Cholesterol 105 mg/dl (50-199) 12/07/23 05:03
LDL Cholesterol, Calc 43 mg/dl 12/07/23 05:03
VLDL Cholesterol, Calc 29 mg/dl (0-30) 12/07/23 05:03
HDL Cholesterol 33 mg/dl 12/07/23 05:03
Procalcitonin 0.40 ng/ml (0.0-0.25) H 12/11/23 05:11
TSH (Reflex) 1.22 uIU/ml (0.47-4.68) 12/07/23 05:03
Urine Color Yellow 12/13/23 21:11
Urine Clarity Clear (Clear) 12/13/23 21:11
Urine pH 8.0 (5.0-9.0) 12/13/23 21:11
Ur Specific [place] 1.015 (<1.030) 12/13/23 21:11
Urine Ketones Trace (Negative) A 12/13/23 21:11
Ur Occult Blood Reflex 2+ (Negative) A 12/13/23 21:11
Urine Nitrite (Reflex) Negative (Negative) 12/13/23 21:11
Urine Bilirubin Negative (Negative) 12/13/23 21:11
Urine Urobilinogen Negative (Neg - 1+) 12/13/23 21:11
Leukocyte Esterase Rfl Negative (Negative) 12/13/23 21:11
Urine RBC >100 /HPF (0-2) A 12/13/23 21:11
Urine WBC (Reflex) 0-2 /HPF (0-5) 12/13/23 21:11
Ur Squamous Epith Cells 0-2 /LPF (Few) 12/13/23 21:11
Urine Bacteria (Reflex) Few (Negative) A 12/06/23 11:11
Urine Yeast Few (Negative) A 12/06/23 11:11
Urine Creatinine 202.800 mg/dl 12/06/23 11:11
Urine Sodium 89 mmol/L (30-90) 12/06/23 11:11
Urine Glucose Negative (Negative) 12/13/23 21:11
Urine Total Protein 760 mg/dl (0-12) H 12/06/23 11:11
Urine Albumin (Reflex) Trace (Neg - Trace) 12/13/23 21:11
Random Vancomycin 16.1 ug/ml 12/10/23 04:32
LENNOX IgG Screen None detected (None Detected) 12/07/23 05:03
Proteinase 3 (PR3) Ab 1 AU/mL (0-19) 12/07/23 05:03
Myeloperoxidase Ab 0 AU/mL (0-19) 12/07/23 05:03
Complement C3 99 mg/dl (88-165) 12/07/23 05:03
Complement C4 47.6 mg/dl (14-44) H 12/07/23 05:03
SARS-CoV-2 Antigen Negative (Negative) 12/06/23 20:43
POC Glucose 89 mg/dl (70-99) 12/06/23 20:26
�
Diagnostic Results: as per HPI
Assessment 83 year old female with PMH of (hypertension on losartan, hyperlipidemia on statin, chronic hypokalemia on p.o. potassium and hypothyroidism) who presented to [facility] by EMS on 12/05 with left-sided weakness. MRI of brain
with Acute/subacute nonhemorrhagic infarcts in the posterior right occipital lobe, bilateral frontal lobe right greater than left and das radiata right greater than left. Due to unclear time of onset of symptoms, likely greater than 6 hours
based on metabolic disturbances, patient not a candidate for either tenecteplase or for arterial thrombectomy,
Plan
PT/OT to increase independence with ADLs, improve balance, coordination, endurance, strength, mobility, community reintegration, decreased burden of care on others and family education.
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 Secondary prophylaxis with aspirin, statin, and blood pressure control (SBP
less than 180 and diastolic less than 100 to participate with therapy for ischemic stroke). Continue to monitor neurologic status.
Left dominant hemiparesis: High risk for falls and sliding out of chair/bed. Safety reinforced.
- Avoid using affected arm to help lift or pull patient as this will cause trauma to the shoulder.
Left Neglect/Left field defect: makes patient at increased risk for falls.� Will need therapy to work on scanning of environment for safe navigation.
Dysphagia: speech evaluation, oral care protocol, , aspiration precautions.� (4/) VSE shows aspiration. 4/[address] Dobbhoff tube due to resistance. (/), repeat VSE with improvement, tolerating pur�ed diet with honey thickened
liquids. Advance diet as tolerated.
Dysarthria: speech evaluation
Aphasia: speech evaluation
Shock: Likely profound hypovolemia, less likely septic, resolved. S/p Levophed. Off pressors. BP improved
KIMBERLY: bun 21, creatinine 1.1. Monitor
HTN: Losartan 100 mg daily, metoprolol 5 mg IV every 4 as needed. Potassium 20 Meq, magnesium. monitor closely
HLD: Atorvastatin 10 mg
Hypothyroidism: levothyroxine 50 mcg /////SA. TSH 1.22
Anemia: Likely multifactorial.�Hgb 12.2 -Improved Continue to monitor.
Leukocytosis: 12 to 14.2. (12/15) 14.8-[id number]. afebrile. Blood culture-negative.
Hyponatremia: 133.
Hypomagnesemia -1.5. Cont replacement
Psych: Psychology consult.� Monitor mood, adjust medications as needed.
Skin/DTI of sacrum- left heel and upper back...Right heel with stage 1 PI - wound care, turn patient Q2H. Recommend multi podus boots for heels: monitor for pressure sores/rashes/lesions.
Pain: acetaminophen 1000 mg 3 times daily, Lidoderm patch, or oxycodone as needed.
Left knee Pain: knee x-ray with OA, started Tylenol
Bowel/Hemorrhoidal bleed: Colace and Senna, PRN bisacodyl. Anusol suppository started
Bladder: Acute urinary retention -Maldonado catheter inserted in the emergency room. Removed 12/12 for void trial, she is voiding well.
Time void, PVRs, PRN straight cath.
Vaginal itching�denies whitish discharge. Likely from atrophic vaginitis, start estrogen cream. Consider Diflucan if it does not improve
GI Prophylaxis: Pantoprazole
DVT Prophylaxis: Heparin 5000 units SQ every 12
Pulmonary: Incentive spirometry
Safety: Continue to reinforce assistance with all transfers.
Code Status:� DNR
Dispo (date/plan/equipment needs): Home with family care.� Social history reviewed.
Functional and Medical Goals: Modified Independent with ADL�s, ambulation, transfers
- Discharge Destination: Acute inpatient rehabilitation.
Summary of recommendations: Patient with CVA associated with left-sided weakness and left sided field cut previously independent with all activities and who is currently functional at Toileting mod assist, toilet transfer- mod assist, bed
mobility�min assist, transfer sit to stand�min assist, stand to sit�min assist, ambulated 15 feet x 2 to/from bathroom with rolling walker moderate assist, would benefit from acute inpatient rehabilitation for PT/OT to increase independence with
ADLs, improve balance, coordination, endurance, strength, mobility, community reintegration.
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 Secondary prophylaxis with aspirin, statin, and blood pressure control (SBP
less than 180 and diastolic less than 100 to participate with therapy for ischemic stroke). Continue to monitor neurologic status.
Left dominant hemiparesis: High risk for falls and sliding out of chair/bed. Safety reinforced.
- Avoid using affected arm to help lift or pull patient as this will cause trauma to the shoulder.
Left Neglect/Left field defect: makes patient at increased risk for falls.� Will need therapy to work on scanning of environment for safe navigation.
Dysphagia: speech evaluation, oral care protocol, , aspiration precautions.� (12/07) VSE shows aspiration. 12/[address] Dobbhoff tube due to resistance. (12/09), repeat VSE with improvement, tolerating pur�ed diet with honey thickened
liquids. Advance diet as tolerated.
Skin/DTI of sacrum- left heel and upper back...Right heel with stage 1 PI - wound care, turn patient Q2H. Recommend multi podus boots. Roho cushion, monitor for pressure sores/rashes/lesions.
Pain: acetaminophen 1000 mg 3 times daily, Lidoderm patch, or oxycodone as needed.
Bowel/Hemorrhoidal bleed: Colace and Senna, PRN bisacodyl. Anusol suppository started
Bladder: Acute urinary retention -Maldonado catheter inserted in the emergency room. Removed 12/12 for void trial, she is voiding well.
Time void, PVRs, PRN straight cath.
GI Prophylaxis: Pantoprazole
DVT Prophylaxis: Heparin 5000 units SQ every 12
Pulmonary: Incentive spirometry
Safety: Continue to reinforce assistance with all transfers.
Thank you for allowing me to care for your patient. Please contact me with any questions or concerns.
This note was dictated using a voice recognition system. Please excuse any typographical errors from strapping machine operator. If you believe there are any discrepancies, please notify our office.

Documented by User: Abram Alan MD 12/16/23 23:31
Consultation - Medical
-
Referring Provider: Arpan Bender
Chief Complaint: CVA
History of Present Illness: Patient is a 83 year old female with PMH of (hypertension on losartan, hyperlipidemia on statin, chronic hypokalemia on p.o. potassium and hypothyroidism) who presented to [facility] by EMS on 12/05 with
left-sided weakness. Patient was found on her floor by a neighbor. Last date of contact was Friday night. No CT evidence for acute intracranial hemorrhage or transcortical infarct. 5.5 mm low-attenuation lesion in the right thalamus which is
likely either cytotoxic edema or encephalomalacia secondary to a lacunar infarct. 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
right greater than left. Due to unclear time of onset of symptoms, likely greater than 6 hours based on metabolic disturbances, patient not a candidate for either tenecteplase or for arterial thrombectomy. Maldonado catheter placed in ER and draining
dark urine. Nephrology consulted-Suspected septic shock, Acute Kidney Injury,Urinary Retention ,mild Rhabdomyolysis. Aggressive IV fluid and pressors for volume depletion/hypotension. Underwent NG tube placement with subsequent right pneumothorax.
Urgent chest tube placed by IR on 12/07/23. Chest x-ray postprocedure shows reexpansion of lung.
MRI Brain-LARGE HIATAL HERNIA
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
2. No significant edema or mass effect. No midline shift. No downward herniation.
3. The bilaterality suggests the possibility of an embolic event.
4. Unusual heterogeneous faint increased T2 signal intensity in the basal ganglia and caudate bilaterally, symmetric. Likely related to chronic age-related changes.
Chest xray- 12/11/23
No pneumothorax with a right chest tube clamped.
2. Haziness of each hemidiaphragm, most suggestive of subsegmental atelectasis, also unchanged. Unchanged elevation of left hemidiaphragm.
Past Medical History: Cancer (Skin cancer), HTN, Hypercholesterolemia and Other (Migraines)
Procedure History: Rectal tumor resectioning
Family History: Non-contributory.
Social History:
Functional Level Premorbidly: Independent with all activities with use of single cane
Functional Level Currently:Toileting mod assist, toilet transfer- mod assist, bed mobility�min assist, transfer sit to stand�min assist, stand to sit�min assist, ambulated 15 feet x 2 to/from bathroom with rolling walker moderate assist.
Tobacco: Denies
Alcohol: Denies
Drug use: Denies
Lives with: Alone
24-hour assistance available: has some assistance
Number of floors: 1
# steps to enter: 3
# steps to second floor: none
Potential First floor set up:yes, double sided mobile home
Driving: yes
Occupation: Retired?
�
Allergies:
Allergy/AdvReac Type Severity Reaction Status Date / Time
lisinopril [From Prinivil] Allergy coughing Verified 12/06/23 11:02
Chocolate Allergy Mouth sores Uncoded 12/06/23 11:02
Review of Systems:
Constitutional: (x) Normal _
Eye: (x) Normal _
Ear/Nose/Throat: (x) Normal _
Respiratory: (x) Normal _
Cardiovascular: (x) Normal _
Gastrointestinal: (x) Normal _
Genitourinary: (x) KIMBERLY, shock
Musculoskeletal: (x) weakness
Integumentary: (x) Normal _
Neurologic: (x) CVA
Psychiatric: (x) Normal _
Endocrine: (x) Normal _
Hematologic/Lymphatic: (x) Normal _
Allergic/Immunologic: (x) Normal _
Medications:
Active Current Visit Medication List
Category Date Time Status
Acetaminophen [Tylenol] Med 12/10/23 16:10 Active
1,000 mg PO TID
Anusol Hc Suppository [Anusol Hc] Med 12/14/23 15:35 Active
25 mg RECTAL HS
Aspirin Chewable [Low Strength Aspirin] Med 12/11/23 08:00 Active
81 mg PO DAILY
Atorvastatin [Lipitor] Med 12/06/23 18:00 Active
10 mg PO QPM
Estradiol Vaginal [Estrace 0.01% Vaginal Cream] Med 12/14/23 09:20 Active
See Dose Instructions VAG HS
Flush (0.9% Sodium Chloride) [Flush (Nss)] Med 12/06/23 16:00 Active
See Dose Instructions IV PER PROTOCOL
Heparin Med 12/08/23 20:00 Active
5,000 units SC Q12
Levothyroxine [Synthroid] Med 12/11/23 06:00 Active
50 mcg PO MoTuWeThFrSa@0600
Lidocaine [Lidocaine 4% Patch] Med 12/10/23 16:15 Active
1 patch TOPICAL DAILY
Losartan [Cozaar] Med 12/12/23 11:00 Active
100 mg PO DAILY
Magnesium Oxide Med 12/16/23 20:00 Active
500 mg PO BID
Metoprolol [Lopressor] Med 12/08/23 15:18 Active
5 mg IV Q4HPRN PRN
Potassium Chloride [KCl] Med 12/12/23 11:00 Active
20 meq PO DAILY
Remove Patch [Remove Lidocaine Patch] Med 12/10/23 20:00 Active
See Dose Instructions REMOVE DAILY@2000
Vitals:
Temp Pulse Resp BP Pulse Ox
97.5 F 96 17 125/60 96
12/16/23 15:01 12/16/23 15:01 12/16/23 15:01 12/16/23 15:01 12/16/23 15:01
Height 5 ft 4 in
Actual Weight 77.734 kg
Body Mass Index (BMI) 29.4
Physical Exam:
General Appearance/Observation: Well-developed, well-nourished female in no apparent distress.
Pain/Comfort Assessment: Denies
Mood/Affect: Appropriate, flat affect, pleasant
Integumentary/Operative Site:
�� Pressure Ulcer Evaluation: Did not visualized heels- had heel protective pads in place
���� Other Type of Wound: sacrum per chart. Did not evaluate/visualized DIT
��
Eyes: Conjunctiva/Lids: normal ��� Pupils: pupils equal round and reactive to light and Accommodation
Ears/Nose/Throat: oral mucosa dry,� throat clear.������������ Lips/Teeth/Gums:dry lips
Neck: No muscle spasm or tenderness
Cardiovascular: Heart: regular, no murmur
Pulses: dorsalis pedis 1+ bilaterally
Respiratory: Respiratory Effort/Chest Expansion: normal ������� Auscultation: Clear to auscultation bilaterally
Gastrointestinal: abdomen not tender, no distension, normal abdominal bowel sounds
Genitourinary: No Maldonado
Extremities: Edema: None Cyanosis: None Trophic changes: None
Neurology Exam:
Orientation: Alert, Oriented to self, Place
Memory: Impaired
Higher cortical function
Repetition: Impaired
Comprehension: slow to process
Two step command: Impaired
Naming: intact
Cranial Nerves:
�� CNII: Pupillary light reflex: Intact��� Visual Field: left homonymous hemianopsia
�� CN III, IV, : Extraocular muscles: Intact
�� CN V: Facial Sensation at Forehead: Intact, Maxilla: Intact, Mandible: Intact
�� CN VII: Facial movement: left facial weakness
�� CN VIII: Hearing: Normal
�� CN IX/X: Speech & swallow: hypophonia, Position of Uvula: Midline
�� CN XI: Shoulder shrug: weak on left
�� CN XII: Tongue protrusion: Midline
Sensory:
�� Light touch: Intact in bilateral upper and lower extremities, no extinction to double simultaneous stimulation.
��
Reflexes:
�� Biceps: absent bilaterally
�� Brachioradialis: 2+ bilaterally
�� Triceps: 2+ bilaterally
�� Patellar: absent bilaterally
�� Achilles: absent bilaterally
�� Babinski: Down going bilaterally
�� Clonus: None
�� Juaquin: positive on the left
Cerebellar: Dysmetria/Ataxia: impaired on the left with finger to nose coordination
Musculoskeletal: Motor: (Manual muscle scale 0-5)
Muscle SA EF WE EE FF FA HF KE DF EHL PF
Right� 5 5 5 4 5 5 4 5 4+ 5 5
Left 3+ 4 3+ 3+ 4 4 3 4 4 5 5
Tone: Normal in all extremities
Range of Motion: Passively within normal limits in all extremities
Lab Results
Labs
WBC 14.2 10^3/uL (4.8-10.8) H 12/15/23 06:12
RBC 4.83 10^6/uL (4.20-5.40) 12/15/23 06:12
Hgb 12.2 g/dL (12.0-16.0) 12/15/23 06:12
Hct 36.4 % (37.0-47.0) L 12/15/23 06:12
MCV 75.4 fL (81.0-99.0) L 12/15/23 06:12
MCH 25.3 pg (27.0-31.0) L 12/15/23 06:12
MCHC 33.5 g/dL (33.0-37.0) 12/15/23 06:12
RDW 14.4 % (11.5-14.5) 12/15/23 06:12
Plt Count 166 10^3/uL (130-400) 12/15/23 06:12
Plt Count Comment Yes 12/08/23 04:25
MPV 10.0 fL (7.4-10.4) 12/15/23 06:12
Abs Immat Gran (auto) 0.2 10^3/uL (0-0.05) H 12/07/23 05:03
Absolute Neuts (auto) 17.1 10^3/uL (1.4-6.5) H 12/07/23 05:03
Absolute Lymphs (auto) 0.8 10^3/uL (1.2-3.4) L 12/07/23 05:03
Absolute Monos (auto) 1.2 10^3/uL (0.1-0.6) H 12/07/23 05:03
Absolute Eos (auto) 0.1 10^3/uL (0-0.7) 12/07/23 05:03
Absolute Basos (auto) 0.1 10^3/uL (0-0.2) 12/07/23 05:03
Total Counted 100 12/08/23 04:25
Immature Gran % 1.1 % (0-0.5) H 12/07/23 05:03
Neutrophils % 87.9 % (42.2-75.2) H 12/07/23 05:03
Lymphocytes % 3.9 % (20.5-51.1) L 12/07/23 05:03
Monocytes % 6.3 % (1.7-9.3) 12/07/23 05:03
Eosinophils % 0.5 % (0-6) 12/07/23 05:03
Basophils % 0.3 % (0-2) 12/07/23 05:03
Nucleated RBC % 0 % 12/07/23 05:03
Abs Neuts (Manual) 14.0 10^3/uL (1.4-6.5) H 12/08/23 04:25
Segmented Neutrophils 92 % (42-75) H 12/08/23 04:25
Band Neutrophils 1 % (0-3) 12/08/23 04:25
Lymphocytes (Manual) 5 % (20-51) L 12/08/23 04:25
Monocytes (Manual) 2 % (2-9) 04/08/24 04:25
Myelocytes 2 % (-) 12/06/23 11:11
Normal RBC Morphology No 12/08/23 04:25
Anisocytosis Slight 12/08/23 04:25
Ovalocytes 1+ 12/06/23 11:11
pH 7.47 (7.35-7.45) H 12/06/23 20:44
pCO2 25 mmHg (32-35) L 12/06/23 20:44
pO2 79 mmHg (83-108) L 12/06/23 20:44
HCO3 18.2 mmol/L (21-28) L 12/06/23 20:44
Base Excess -3.5 mmol/L 12/06/23 20:44
ABG O2 Sat (Measured) 97.2 % (94-98) 12/06/23 20:44
O2 Delivery Level 12/06/23 20:44
Sodium 133 mmol/L (135-145) L 12/15/23 06:12
Potassium 4.1 mmol/L (3.5-5.1) 12/15/23 06:12
Chloride 108 mmol/L (98-107) H 12/15/23 06:12
Carbon Dioxide 21 mmol/L (22-30) L 12/15/23 06:12
BUN 22 mg/dl (7-17) H 12/15/23 06:12
Creatinine 1.0 mg/dL (0.6-1.0) 12/15/23 06:12
Estimated Creat Clear 45 ml/min 12/15/23 06:12
eGFR 56.60 12/15/23 06:12
Glucose 108 mg/dl (70-99) H 12/15/23 06:12
Hemoglobin A1c 5.4 % (4.0-5.6) 12/07/23 05:03
Lactic Acid 1.2 mmol/L (0.7-2.0) 12/07/23 01:44
Calcium 8.4 mg/dl (8.4-10.2) 12/15/23 06:12
Phosphorus 2.5 mg/dl (2.5-4.5) 12/15/23 06:12
Magnesium 1.5 mg/dl (1.6-2.3) L 12/15/23 06:12
Total Bilirubin 1.1 mg/dl (0.2-1.3) 12/10/23 04:32
AST 40 U/L (14-36) H 12/10/23 04:32
ALT 21 U/L (0-35) 12/10/23 04:32
Alkaline Phosphatase 94 U/L (38-126) 12/10/23 04:32
Creatine Kinase 80 U/L (30-135) D 12/10/23 04:32
Total Protein 5.0 g/dl (6.3-8.2) L 12/10/23 04:32
Albumin 2.4 g/dl (3.5-5.0) L 12/10/23 04:32
Triglycerides 147 mg/dl (10-149) 12/07/23 05:03
Total Cholesterol 105 mg/dl (50-199) 12/07/23 05:03
LDL Cholesterol, Calc 43 mg/dl 12/07/23 05:03
VLDL Cholesterol, Calc 29 mg/dl (0-30) 12/07/23 05:03
HDL Cholesterol 33 mg/dl 12/07/23 05:03
Procalcitonin 0.40 ng/ml (0.0-0.25) H 12/11/23 05:11
TSH (Reflex) 1.22 uIU/ml (0.47-4.68) 12/07/23 05:03
Urine Color Yellow 12/13/23 21:11
Urine Clarity Clear (Clear) 12/13/23 21:11
Urine pH 8.0 (5.0-9.0) 12/13/23 21:11
Ur Specific [place] 1.015 (<1.030) 12/13/23 21:11
Urine Ketones Trace (Negative) A 12/13/23 21:11
Ur Occult Blood Reflex 2+ (Negative) A 12/13/23 21:11
Urine Nitrite (Reflex) Negative (Negative) 12/13/23 21:11
Urine Bilirubin Negative (Negative) 12/13/23 21:11
Urine Urobilinogen Negative (Neg - 1+) 12/13/23 21:11
Leukocyte Esterase Rfl Negative (Negative) 12/13/23 21:11
Urine RBC >100 /HPF (0-2) A 12/13/23 21:11
Urine WBC (Reflex) 0-2 /HPF (0-5) 12/13/23 21:11
Ur Squamous Epith Cells 0-2 /LPF (Few) 12/13/23 21:11
Urine Bacteria (Reflex) Few (Negative) A 12/06/23 11:11
Urine Yeast Few (Negative) A 12/06/23 11:11
Urine Creatinine 202.800 mg/dl 12/06/23 11:11
Urine Sodium 89 mmol/L (30-90) 12/06/23 11:11
Urine Glucose Negative (Negative) 12/13/23 21:11
Urine Total Protein 760 mg/dl (0-12) H 12/06/23 11:11
Urine Albumin (Reflex) Trace (Neg - Trace) 12/13/23 21:11
Random Vancomycin 16.1 ug/ml 12/10/23 04:32
LENNOX IgG Screen None detected (None Detected) 12/07/23 05:03
Proteinase 3 (PR3) Ab 1 AU/mL (0-19) 12/07/23 05:03
Myeloperoxidase Ab 0 AU/mL (0-19) 12/07/23 05:03
Complement C3 99 mg/dl (88-165) 12/07/23 05:03
Complement C4 47.6 mg/dl (14-44) H 12/07/23 05:03
SARS-CoV-2 Antigen Negative (Negative) 12/06/23 20:43
POC Glucose 89 mg/dl (70-99) 12/06/23 20:26
�
Diagnostic Results: as per HPI
Assessment 83 year old female with PMH of (hypertension on losartan, hyperlipidemia on statin, chronic hypokalemia on p.o. potassium and hypothyroidism) who presented to [facility] by EMS on 12/05 with left-sided weakness. MRI of brain
with Acute/subacute nonhemorrhagic infarcts in the posterior right occipital lobe, bilateral frontal lobe right greater than left and das radiata right greater than left. Due to unclear time of onset of symptoms, likely greater than 6 hours
based on metabolic disturbances, patient not a candidate for either tenecteplase or for arterial thrombectomy,
Plan
PT/OT to increase independence with ADLs, improve balance, coordination, endurance, strength, mobility, community reintegration, decreased burden of care on others and family education.
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 Secondary prophylaxis with aspirin, statin, and blood pressure control (SBP
less than 180 and diastolic less than 100 to participate with therapy for ischemic stroke). Continue to monitor neurologic status.
Left dominant hemiparesis: High risk for falls and sliding out of chair/bed. Safety reinforced.
- Avoid using affected arm to help lift or pull patient as this will cause trauma to the shoulder.
Left homonymous hemianopsia: makes patient at increased risk for falls.� Will need therapy to work on scanning of environment for safe navigation.
Dysphagia: speech evaluation, oral care protocol, , aspiration precautions.� (12/07) VSE shows aspiration. 4/ GI unable to place Dobbhoff tube due to resistance. (12/09), repeat VSE with improvement, tolerating pur�ed diet with honey thickened
liquids. Advance diet as tolerated.
Dysarthria: speech
Aphasia: speech
Shock: Likely profound hypovolemia, less likely septic, resolved. S/p Levophed. Off pressors. BP improved
KIMBERLY: bun 21, creatinine 1.1. Monitor
HTN: Losartan 100 mg daily, metoprolol 5 mg IV every 4 as needed. Potassium 20 Meq, magnesium. monitor closely
HLD: Atorvastatin 10 mg
Hypothyroidism: levothyroxine 50 mcg /////SA. TSH 1.22
Anemia: Likely multifactorial.�Hgb 12.2 -Improved Continue to monitor.
Leukocytosis: 12 to 14.2. (12/15) 14.6-[id number]. afebrile. Blood culture-negative.
Hyponatremia: 133.
Hypomagnesemia -1.5. Cont replacement
Psych: Psychology consult.� Monitor mood, adjust medications as needed.
Skin/DTI of sacrum- left heel and upper back...Right heel with stage 1 PI - wound care, turn patient Q2H. Recommend multi podus boots for heels: monitor for pressure sores/rashes/lesions.
Pain: acetaminophen 1000 mg 3 times daily, Lidoderm patch, or oxycodone as needed.
Left knee Pain: knee x-ray with OA, started Tylenol
Bowel/Hemorrhoidal bleed: Colace and Senna, PRN bisacodyl. Anusol suppository started
Bladder: Acute urinary retention -Maldonado catheter inserted in the emergency room. Removed 12/12 for void trial, she is voiding well.
Time void, PVRs, PRN straight cath.
Vaginal itching�denies whitish discharge. Could be atrophic vaginitis. Consider CIRCULATION ANALYST exam.
GI Prophylaxis: Pantoprazole
DVT Prophylaxis: Heparin 5000 units SQ every 12
Pulmonary: Incentive spirometry
Safety: Continue to reinforce assistance with all transfers.
Code Status:� DNR
Dispo (date/plan/equipment needs): Home with family care.� Social history reviewed.
Functional and Medical Goals: Modified Independent with ADL�s, ambulation, transfers
- Discharge Destination: Acute inpatient rehabilitation.
Summary of recommendations: Patient with CVA associated with left-sided weakness and left sided field cut previously independent with all activities and who is currently functional at Toileting mod assist, toilet transfer- mod assist, bed
mobility�min assist, transfer sit to stand�min assist, stand to sit�min assist, ambulated 15 feet x 2 to/from bathroom with rolling walker moderate assist, would benefit from acute inpatient rehabilitation for PT/OT to increase independence with
ADLs, improve balance, coordination, endurance, strength, mobility, community reintegration.
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 Secondary prophylaxis with aspirin, statin, and blood pressure control (SBP
less than 180 and diastolic less than 100 to participate with therapy for ischemic stroke). Continue to monitor neurologic status.
Left dominant hemiparesis: High risk for falls and sliding out of chair/bed. Safety reinforced.
- Avoid using affected arm to help lift or pull patient as this will cause trauma to the shoulder.
Left homonymous hemianopsia: makes patient at increased risk for falls.� Will need therapy to work on scanning of environment for safe navigation.
Dysphagia: speech evaluation, oral care protocol, , aspiration precautions.� (12/07) VSE shows aspiration. 12/[address] Dobbhoff tube due to resistance. (12/09), repeat VSE with improvement, tolerating pur�ed diet with honey thickened
liquids. Advance diet as tolerated.
Skin/DTI of sacrum- left heel and upper back...Right heel with stage 1 PI - wound care, turn patient Q2H. Recommend multi podus boots. Roho cushion, monitor for pressure sores/rashes/lesions.
Pain: acetaminophen 1000 mg 3 times daily, Lidoderm patch, or oxycodone as needed.
Bowel/Hemorrhoidal bleed: Colace and Senna, PRN bisacodyl. Anusol suppository started
Bladder: Acute urinary retention -Maldonado catheter inserted in the emergency room. Removed 12/12 for void trial, she is voiding well.
Time void, PVRs, PRN straight cath.
GI Prophylaxis: Pantoprazole
DVT Prophylaxis: Heparin 5000 units SQ every 12
Pulmonary: Incentive spirometry
Safety: Continue to reinforce assistance with all transfers.
Attending statement:
I saw and examined the patient today. Reviewed care plan with patient, therapy, nursing, and physician home care assistant. I agree with the above subjective, physical exam, and plan as documented above.
Thank you for allowing me to care for your patient. Please contact me with any questions or concerns.
--- NOTE | 2023-12-15 10:30 | W.PN.HOSP.TC ---
Today's Communication/Plan
-
Discharge planning
Assessment / Plan
Assessment / Plan
Gen-AAOx3, NAD
HEENT-NC, AT, anicteric, clear oral mm
Neck-supple
CV-reg, no M, +S1/S2
Lungs-clear B/L
Abd-soft, NT, ND
Ext-no edema
Musculoskeletal-no cyanosis, clubbing
Skin-warm and dry
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 Brain MRI w/ acute/subacute CVA nonhemorrhagic infarcts in the posterior right occipital lobe, bilateral frontal lobe right greater than left and das radiata right greater than left.
Neurology following. 12/07 VSE shows aspiration. 12/[address] Dobbhoff tube due to resistance. 12/09, repeat VSE with improvement, tolerating pur�ed diet with honey thickened liquids. Continue aspirin/statin. Continue PT/OT/SPL. Neuro rec
Holter cardiac monitoring and if this is negative pursue implanted secured entrance monitor (LINQ) outpatient. Discussed w/ Dr. Gutierrez, who will arrange for this. PT rec acute rehab.
Acute TME -likely multifactorial etiology including acute stroke, acute kidney injury, volume depletion, etc. Continues to improve
KIMBERLY -likely due to profound volume depletion, acute urinary retention, etc. Creatinine coming down. Appreciate nephrology input, resolved s/p IVFs
Hemorrhoidal bleeding�hemoglobin stable, start Anusol suppository
Vaginal itching�denies whitish discharge. Likely from atrophic vaginitis, start estrogen cream. Consider Diflucan if it does not improve
Hypovolemic shock -s/p Levophed. Shock due to profound volume depletion. Clinically doubt sepsis. Blood pressure improved.
Right iatrogenic pneumothorax status post chest tube 12/07/23. Chest tube removed 12/11/2023, doing well, pulmonary signed off.
Leukocytosis -WBC trending down, procalcitonin elevated at 0.40, no fever, blood cultures negative, no source of infection identified. Status post Zosyn and vancomycin, monitor off antibiotics
Hypokalemia -replete prn.
Hypomagnesemia�replete as needed.
Hypophosphatemia�replete as needed
QTc prolongation�resolved
Hypernatremia�resolved with D5W
Acute urinary retention -Maldonado catheter inserted in the emergency room. Removed 12/12 for void trial, she is voiding well.
High anion gap metabolic acidosis -likely due to KIMBERLY, starvation, etc. Trace urine ketones noted. Bicarbonate now normal. Resolved.
Lactic acidosis -likely due to profound volume depletion, KIMBERLY. Lactate normalized.
Mild traumatic rhabdomyolysis -due to fall, stroke, immobility. CPK normalized
Hypothyroidism -TSH 1.22. Resumed oral levothyroxine
Essential hypertension -blood pressure improved after resuming losartan 100 mg daily 12/11
Hyperlipidemia -on atorvastatin.
DTI of sacrum, left heel and upper back...Right heel with stage 1 PI - wound care, turn patient Q2H
Left knee pain� knee x-ray with OA, started Tylenol
DVT prophylaxis� subcu lovenox
DNR
Dispo -medically stable for acute rehab.
Anticipated Discharge: Within 24 hours
Subjective/Interval History
-
Date of Service: December 15, 2023
Patient seen and examined. No new complaints.
Objective Data
-
Labs:
Laboratory Results
12/15/23
06:12
WBC 14.2 H
Hgb 12.2
Hct 36.4 L
Plt Count 166
Sodium 133 L
Potassium 4.1
Chloride 108 H
Carbon Dioxide 21 L
BUN 22 H
Creatinine 1.0
Glucose 108 H
Calcium 8.4
Vital Signs:
Vital Signs
Temp Pulse Resp BP Pulse Ox
98.0 F 96 18 169/92 95
12/15/23 07:00 12/15/23 07:00 12/15/23 07:00 12/15/23 07:00 12/15/23 07:00
I&O
12/14/23 12/15/23 12/16/23
06:59 06:59 06:59
Output Total 840 / 840
Balance -840 / -840
Review of Systems
-
History Source: Patient
All other systems: Reviewed and negative
--- NOTE | 2023-12-15 14:33 | PTCARENOTE ---
Pt worked with PT during shift. Had a bowel movement in the toilet with bright red blood noted. Hx hemorrhoids, receives Anusol suppository 2199. Denies pain/discomfort.
--- NOTE | 2023-12-15 16:13 | CM ---
Reviewed chart, PT still recommending acute rehab. Will call admissions in the am to determine bed availability. Authorization would be needed for transfer.
Plan: Case management will continue to follow and assist with discharge planning. Will determine with admissions whether there is a bed available.
[2023-12-15] MEDS: LIPITOR 10 MG PO (16:36)
[2023-12-15] MEDS: ANUSOL HC 25 MG RECTAL (21:56)
[2023-12-15] MEDS: ESTRACE 0.01% VAGINAL CREAM 1 APPLIC VAG (22:14)
[2023-12-16] VITALS (7 sets, daily range): BP systolic 124–155; BP diastolic 60–84; PULSE 90–148; BMI 29.4
[2023-12-16] MEDS: SYNTHROID 50 MCG PO (05:38)
[2023-12-16 06:57] LABS: Hemoglobin 12.1 g/dL (12.0-16.0); Mean Corp Hgb Conc. 33.6 g/dL (33.0-37.0); Mean Corpuscular Hgb 25.5 pg (27.0-31.0); Mean Corpuscular Volume 75.9 fL (81.0-99.0); Mean Platelet Volume 9.9 fL (7.4-10.4); Platelet Count 186 10^3/uL (130-400); Red Blood Cell Count 4.74 10^6/uL (4.20-5.40); Red Cell Dist. Width 14.8 % (11.5-14.5); White Blood Cell Count 14.5 10^3/uL (4.8-10.8)
[2023-12-16 07:55] LABS: Blood Urea Nitrogen 21 mg/dl (7-17); Calcium 8.5 mg/dl (8.4-10.2); Carbon Dioxide 20 mmol/L (22-30); Chloride 110 mmol/L (98-107); Estimated Creatinine Clearance 40 ml/min; Glucose 89 mg/dl (70-99); Magnesium 1.5 mg/dl (1.6-2.3); Potassium 4.6 mmol/L (3.5-5.1); Sodium 134 mmol/L (135-145); eGFR 50.48
[2023-12-16] MEDS: TYLENOL 1000 MG PO ×3 (08:17→21:03)
[2023-12-16] MEDS: KCL 20 MEQ PO (08:17)
[2023-12-16] MEDS: LOW STRENGTH ASPIRIN 81 MG PO (08:17)
[2023-12-16] MEDS: COZAAR 100 MG PO (08:18)
[2023-12-16] MEDS: HEPARIN 5000 UNITS SC ×2 (08:18→21:02)
[2023-12-16] MEDS: LIDOCAINE 4% PATCH 1 PATCH TOPICAL (08:18)
--- NOTE | 2023-12-16 10:52 | PN.CDI ---
CDI
- -
CDI:
Physician Documentation Request
Admit Date: 12/06/23 15:02
Dear Doctor Napoleon,
Patient admitted for stroke.
12/14 Hospitalist PN: 'Hypernatremia�resolved with D5W'
Laboratory Tests
12/08/23 12/13/23 12/14/23
04:20 05:30 03:34
Sodium 147 H 134 L 134 L
12/15/23 12/16/23
06:12 06:35
Sodium 133 L 134 L
Based on the above, could you clarify in the progress notes, the appropriate diagnosis, if significant, that supports the above abnormalities and additional evaluation, monitoring and/or treatment rendered:
Hypernatremia resolved into hyponatremia
Hypernatremia
Hyponatremia
Other
Use of terms such as suspected, likely, concern for, or probable (associated with a specific diagnosis that is being evaluated, monitored, or treated as if it exists) are acceptable and can be coded in the inpatient setting, when documented at the
time of discharge.
Thank you,
Madeleine Newman
CDI Specialist
Please use your independent medical judgment in providing your response.
--- NOTE | 2023-12-16 12:40 | W.PN.HOSP.TC ---
Addendum entered and electronically signed by Arpan Bender DO 12/16/23 13:29:
Hypernatremia resolved into hyponatremia
Original Note:
Today's Communication/Plan
-
Replete magnesium
Discharge planning
Assessment / Plan
Assessment / Plan
Gen-AAOx3, NAD
HEENT-NC, AT, anicteric, clear oral mm
Neck-supple
CV-reg, no M, +S1/S2
Lungs-clear B/L
Abd-soft, NT, ND
Ext-no edema
Musculoskeletal-no cyanosis, clubbing
Skin-warm and dry
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 Brain MRI w/ acute/subacute CVA nonhemorrhagic infarcts in the posterior right occipital lobe, bilateral frontal lobe right greater than left and das radiata right greater than left.
Neurology following. 12/07 VSE shows aspiration. 12/[address] Dobbhoff tube due to resistance. 12/09, repeat VSE with improvement, tolerating pur�ed diet with honey thickened liquids. Continue aspirin/statin. Continue PT/OT/SPL. Neuro rec
Holter cardiac monitoring and if this is negative pursue implanted rn cardiac rehab (LINQ) outpatient. Discussed w/ Dr. Gutierrez, who will arrange for this. PT rec acute rehab.
Acute TME -likely multifactorial etiology including acute stroke, acute kidney injury, volume depletion, etc. Continues to improve.
KIMBERLY -resolved.
Hemorrhoidal bleeding�hemoglobin stable, continue Anusol suppository
Vaginal itching�denies whitish discharge. Likely from atrophic vaginitis, continue estrogen cream.
Hypovolemic shock -resolved.
Right iatrogenic pneumothorax status post chest tube 12/07/23. Chest tube removed 12/11/2023, doing well, pulmonary signed off.
Leukocytosis -WBC relatively stable. No obvious source of infection. Hold antibiotics.
Hypokalemia -resolved.
Hypomagnesemia -1.5 today. Will replete.
Hypophosphatemia�resolved.
QTc prolongation�resolved
Acute urinary retention -Maldonado catheter inserted in the emergency room. Removed 12/12 for void trial, she is voiding well.
High anion gap metabolic acidosis -likely due to KIMBERLY, starvation, etc. Trace urine ketones noted. Bicarbonate now normal. Resolved.
Lactic acidosis -likely due to profound volume depletion, KIMBERLY. Lactate normalized.
Mild traumatic rhabdomyolysis -due to fall, stroke, immobility. CPK normalized
Hypothyroidism -TSH 1.22. Continue oral levothyroxine.
Essential hypertension -blood pressure improved after resuming losartan 100 mg daily 12/11
Hyperlipidemia -on atorvastatin.
DTI of sacrum, left heel and upper back...Right heel with stage 1 PI - wound care, turn patient Q2H
Left knee pain� knee x-ray with OA, started Tylenol
DNR
Dispo -medically stable for acute rehab.
Anticipated Discharge: Within 24 hours
Subjective/Interval History
-
Date of Service: December 16, 2023
Patient seen and examined. No complaints.
Objective Data
-
Labs:
Laboratory Results
12/16/23
06:35
WBC 14.5 H
Hgb 12.1
Hct 36.0 L
Plt Count 186
Sodium 134 L
Potassium 4.6
Chloride 110 H
Carbon Dioxide 20 L
BUN 21 H
Creatinine 1.1 H
Glucose 89
Calcium 8.5
Vital Signs:
Vital Signs
Temp Pulse Resp BP Pulse Ox
97.6 F 92 16 145/73 99
12/16/23 11:19 12/16/23 11:19 12/16/23 11:19 12/16/23 11:19 12/16/23 11:19
I&O
12/15/23 12/16/23 12/17/23
06:59 06:59 06:59
Intake Total 480 / 480
Balance 480 / 480
Review of Systems
-
History Source: Patient
All other systems: Reviewed and negative
[2023-12-16] MEDS: MAGNESIUM SULFATE 50 IV (14:05)
[2023-12-16] MEDS: LIPITOR 10 MG PO (17:12)
[2023-12-16] MEDS: MAGNESIUM OXIDE 500 MG PO (21:02)
[2023-12-16] MEDS: ESTRACE 0.01% VAGINAL CREAM 1 APPLIC VAG (21:03)
[2023-12-16] MEDS: ANUSOL HC 25 MG RECTAL (21:03)
[2023-12-17 03:00] VITALS: BP 141/67
[2023-12-17 04:49] VITALS: BMI 29.4
--- NOTE | 2023-12-17 04:57 | DOWNTIME ---
There was a Estrogen Gene Test Client Inspector Balance Wheel Motion Downtime on 12/17/2023 from 0100 to 12/17/2023 at 0439. Downtime documentation of patient's care, including medication administrations, has been reconciled in the electronic record per guidelines. Refer to the
patient's paper chart under the miscellaneous tab to see printed paper medication records and downtime forms.
[2023-12-17] MEDS: SYNTHROID 50 MCG PO (06:03)
[2023-12-17 07:00] VITALS: BP 141/76
[2023-12-17 07:16] LABS: Hematocrit 34.3 % (37.0-47.0); Hemoglobin 11.5 g/dL (12.0-16.0); Mean Corp Hgb Conc. 33.5 g/dL (33.0-37.0); Mean Corpuscular Hgb 25.8 pg (27.0-31.0); Mean Corpuscular Volume 77.1 fL (81.0-99.0); Mean Platelet Volume 10.4 fL (7.4-10.4); Platelet Count 230 10^3/uL (130-400); Red Blood Cell Count 4.45 10^6/uL (4.20-5.40); Red Cell Dist. Width 15.1 % (11.5-14.5); White Blood Cell Count 12.9 10^3/uL (4.8-10.8)
[2023-12-17 07:48] LABS: Blood Urea Nitrogen 22 mg/dl (7-17); Calcium 8.7 mg/dl (8.4-10.2); Carbon Dioxide 22 mmol/L (22-30); Chloride 103 mmol/L (98-107); Estimated Creatinine Clearance 40 ml/min; Glucose 89 mg/dl (70-99); Potassium 4.6 mmol/L (3.5-5.1); Sodium 134 mmol/L (135-145); eGFR 50.48
[2023-12-17] MEDS: LIDOCAINE 4% PATCH 1 PATCH TOPICAL (07:50)
[2023-12-17] MEDS: COZAAR 100 MG PO (07:51)
[2023-12-17] MEDS: HEPARIN 5000 UNITS SC (07:51)
[2023-12-17] MEDS: TYLENOL 1000 MG PO (07:51)
[2023-12-17] MEDS: MAGNESIUM OXIDE 500 MG PO (07:51)
[2023-12-17] MEDS: LOW STRENGTH ASPIRIN 81 MG PO (07:51)
[2023-12-17] MEDS: KCL 20 MEQ PO (07:51)
--- NOTE | 2023-12-17 09:30 | CM ---
Addendum entered by SHALONDA Hogan 12/17/23 12:24:
Placed a call to [facility] and spoke with shared services representative, April, who provided auth# [id number] for 7 days acute level of care NRD 12/22 fax information to, .
Placed a call to Magalie in admissions who stated that bed will be available today
RN and community cultural development officer updated.
Xphflr-[phone] and fax [phone]
Addendum entered by SHALONDA Hogan 12/17/23 11:39:
Placed a call to Magalie to obtain information for NPIs to get hopeful auth for transfer. Got voice mail. Left a voice mail requesting text or call with this information. Magalie texted the following NPI for facility [phone]
[phone]. Will attempt authorization.
Original Note:
Received call from Magalie in [place] admissions who confirmed that bed is available for patient should she be medically cleared. Will update attending. Auth will be needed for transfer.
Plan: Case management will continue to follow and assist with discharge planning. Transfer to [facility] upon medical clearance.
[2023-12-17 11:00] VITALS: BP 134/67
[2023-12-17 11:16] LABS: Magnesium 1.9 mg/dl (1.6-2.3)
--- NOTE | 2023-12-17 11:33 | W.PN.HOSP.TC ---
Today's Communication/Plan
-
Discharge
Assessment / Plan
Assessment / Plan
Gen-AAOx3, NAD
HEENT-NC, AT, anicteric, clear oral mm
Neck-supple
CV-reg, no M, +S1/S2
Lungs-clear B/L
Abd-soft, NT, ND
Ext-no edema
Musculoskeletal-no cyanosis, clubbing
Skin-warm and dry
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 Brain MRI w/ acute/subacute CVA nonhemorrhagic infarcts in the posterior right occipital lobe, bilateral frontal lobe right greater than left and das radiata right greater than left.
Neurology following. 12/07 VSE shows aspiration. 12/[address] Dobbhoff tube due to resistance. 12/09, repeat VSE with improvement, tolerating pur�ed diet with honey thickened liquids. Continue aspirin/statin. Continue PT/OT/SPL. Neuro rec
Holter cardiac monitoring and if this is negative pursue implanted satellite project site monitor (LINQ) outpatient. Discussed w/ Dr. Gutierrez, who will arrange for this. PT rec acute rehab.
Acute TME -likely multifactorial etiology including acute stroke, acute kidney injury, volume depletion, etc. Continues to improve.
KIMBERLY -resolved.
Hemorrhoidal bleeding�hemoglobin stable, continue Anusol suppository
Vaginal itching�denies whitish discharge. Likely from atrophic vaginitis, continue estrogen cream.
Hypovolemic shock -resolved.
Right iatrogenic pneumothorax status post chest tube 12/07/23. Chest tube removed 12/11/2023, doing well, pulmonary signed off.
Leukocytosis -WBC relatively stable. No obvious source of infection. Hold antibiotics.
Hypokalemia -resolved.
Hypomagnesemia -resolved.
Hypophosphatemia�resolved.
QTc prolongation�resolved
Acute urinary retention -Maldonado catheter inserted in the emergency room. Removed 12/12 for void trial, she is voiding well.
High anion gap metabolic acidosis -likely due to KIMBERLY, starvation, etc. Trace urine ketones noted. Bicarbonate now normal. Resolved.
Lactic acidosis -likely due to profound volume depletion, KIMBERLY. Lactate normalized.
Mild traumatic rhabdomyolysis -due to fall, stroke, immobility. CPK normalized
Hypothyroidism -TSH 1.22. Continue oral levothyroxine.
Essential hypertension -blood pressure improved after resuming losartan 100 mg daily 12/11
Hyperlipidemia -on atorvastatin.
DTI of sacrum, left heel and upper back...Right heel with stage 1 PI - wound care, turn patient Q2H
Left knee pain� knee x-ray with OA, started Tylenol
DNR
Dispo -medically stable for acute rehab.
Updated patient's neice on the phone (Caron).
32 minutes spent in discharge process.
Anticipated Discharge: Today
Subjective/Interval History
-
Date of Service: December 17, 2023
Patient seen and examined. No complaints.
Objective Data
-
Labs:
Laboratory Results
12/17/23
06:38
WBC 12.9 H
Hgb 11.5 L
Hct 34.3 L
Plt Count 230 D
Sodium 134 L
Potassium 4.6
Chloride 103
Carbon Dioxide 22
BUN 22 H
Creatinine 1.1 H
Glucose 89
Calcium 8.7
Vital Signs:
Vital Signs
Temp Pulse Resp BP Pulse Ox
97.6 F 87 18 141/76 96
12/17/23 07:00 12/17/23 07:51 12/17/23 07:00 12/17/23 07:51 12/17/23 07:00
I&O
12/16/23 12/17/23 12/18/23
06:59 06:59 06:59
Intake Total 480 / 480 120 / 120
Balance 480 / 480 120 / 120
Review of Systems
-
History Source: Patient
All other systems: Reviewed and negative
--- NOTE | 2023-12-17 11:41 | W.DS.TRANS ---
DC Summary - Control Panel Operator
-
Discharge Instructions:
Discharge Diagnosis/Procedures Acute stroke, acute TME, acute kidney injury,
electrolyte abnormalities
Diet Other diet
Additional Diets Pur�ed diet, honey thick liquids
Activity With assistance,As tolerated
Driving Restrictions No driving
Bathing Restrictions None
Instructions:
Stand-Alone Forms:
Changes to Home Medications: No
Discharge Medications:
DC Medications w/original date entered in [employer]
atorvastatin 10 mg tablet 10 mg PO DAILY High Cholesterol 12/06/23
fluticasone propionate 50 mcg/actuation nasal spray,suspension 2 spray intranasal DAILY Allergies 12/06/23
levothyroxine 50 mcg tablet 50 mcg PO MOTUWETHFRSA Thyroid 12/06/23
losartan 100 mg tablet 100 mg PO DAILY Blood Pressure 12/06/23
potassium chloride 20 mEq tablet,extended release 20 meq PO DAILY Electrolyte Repletion 12/06/23
aspirin 81 mg chewable tablet (Children's Aspirin) 81 mg PO DAILY #0 tabs 12/17/23
estradiol 0.01% (0.1 mg/gram) vaginal cream 0.25 appful vaginal HS #42.5 grams 12/17/23
hydrocortisone acetate 25 mg rectal suppository 25 mg [place] HS #0 ea 12/17/23
lidocaine 4 % topical patch 1 patch topical DAILY #0 ea 12/17/23
magnesium oxide 500 mg PO BID #0 tabs 12/17/23
Home Medication Changes
Pending Results: No
[2023-12-17 12:05] VITALS: BP 135/70
== END 2023-12-17 15:22 | DRG 64 ==
LOC: 3 WEST ACU 15:02
PROVIDERS: Family Medicine; Nurse Practitioner Family; Nurse Practitioner Gerontology; Physician Assistant Medical; Radiology Vascular & Interventional Radiology; ADMITTING PHYSICIAN Hospitalist; CONSULT PHYSICIAN Internal Medicine; CONSULT PHYSICIAN Psychiatry & Neurology Neurology; EMERGENCY PHYSICIAN Emergency Medicine; FAMILY PHYSICIAN Family Medicine; OTHER PHYSICIAN Internal Medicine Critical Care Medicine; OTHER PHYSICIAN Physical Medicine & Rehabilitation
PROC: 0W9930Z Drainage of Right Pleural Cavity with Drainage Device, Percutaneous Approach (ICD-10-PCS; 2023-12-07)
DX: I63.511 Cerebral infarction due to unspecified occlusion or stenosis of right middle cerebral artery (principal); G92.8 Other toxic encephalopathy; R57.1 Hypovolemic shock; E87.20 Acidosis, unspecified; N17.9 Acute kidney failure, unspecified; J98.11 Atelectasis; J95.811 Postprocedural pneumothorax; E87.1 Hypo-osmolality and hyponatremia; G81.92 Hemiplegia, unspecified affecting left dominant side; Z66 Do not resuscitate; E87.6 Hypokalemia; E03.9 Hypothyroidism, unspecified; I10 Essential (primary) hypertension; T79.6XXA Traumatic ischemia of muscle, initial encounter; W19.XXXA Unspecified fall, initial encounter; R33.9 Retention of urine, unspecified; K44.9 Diaphragmatic hernia without obstruction or gangrene; E78.00 Pure hypercholesterolemia, unspecified; H53.462 Homonymous bilateral field defects, left side; R47.1 Dysarthria and anarthria; R47.01 Aphasia; D64.9 Anemia, unspecified; E83.42 Hypomagnesemia; E86.1 Hypovolemia; K64.9 Unspecified hemorrhoids; L89.611 Pressure ulcer of right heel, stage 1; N95.2 Postmenopausal atrophic vaginitis; M17.12 Unilateral primary osteoarthritis, left knee; Z11.52 Encounter for screening for COVID-19; Z79.899 Other long term (current) drug therapy
CPT/HCPCS: 32557; 36600; 51702; 70450; 70551; 71045; 73560; 74018; 74230; 76775; 80048; 80053; 80061; 80202; 81003; 81015; 82550; 82570; 82805; 82962; 83036; 83516; 83605; 83735; 84100; 84145; 84156; 84300; 84443; 85025; 85027; 86038; 86160; 87040; 87070; 87502; 87811; 92507; 92523; 92526; 92610; 92611; 93005; 93306; 93880; 96360; 96361; 97110; 97112; 97116; 97129; 97163; 97167; 97530; 97535; 99152; 99291; C1729; C1769; J2760; J3480

== ENCOUNTER → 2024-01-01 08:03 | Outpatient (REF) | payer OTHER, SELFPAY | LOC: WOUND 08:03 | PROVIDERS: ATTENDING PHYSICIAN Surgery; FAMILY PHYSICIAN Family Medicine | DX: L89.323 Pressure ulcer of left buttock, stage 3 (principal); I63.89 Other cerebral infarction; I10 Essential (primary) hypertension | CPT/HCPCS: 11042; 11045; 99204 ==

== ENCOUNTER → 2024-01-05 09:58 | Outpatient (REF) | payer OTHER, SELFPAY | LOC: WOUND 09:58 | PROVIDERS: ATTENDING PHYSICIAN Surgery; FAMILY PHYSICIAN Family Medicine | DX: L89.323 Pressure ulcer of left buttock, stage 3 (principal); I10 Essential (primary) hypertension; I69.30 Unspecified sequelae of cerebral infarction | CPT/HCPCS: 99213 ==

== ENCOUNTER → 2024-01-12 13:48 | Outpatient (REF) | payer OTHER, SELFPAY | LOC: WOUND 13:48 | PROVIDERS: ATTENDING PHYSICIAN Surgery; FAMILY PHYSICIAN Family Medicine | DX: L89.323 Pressure ulcer of left buttock, stage 3 (principal); I63.89 Other cerebral infarction; I10 Essential (primary) hypertension | CPT/HCPCS: 11042; 11044; 11045 ==

== ENCOUNTER → 2024-01-20 13:32 | Outpatient (REF) | payer OTHER, SELFPAY | LOC: WOUND 13:32 | PROVIDERS: ATTENDING PHYSICIAN Surgery; FAMILY PHYSICIAN Family Medicine | DX: L89.323 Pressure ulcer of left buttock, stage 3 (principal); I10 Essential (primary) hypertension; Z86.73 Personal history of transient ischemic attack (TIA), and cerebral infarction without residual deficits | CPT/HCPCS: 99213 ==

== ENCOUNTER → 2024-02-02 13:36 | Outpatient (REF) | payer OTHER, SELFPAY | LOC: WOUND 13:36 | PROVIDERS: ATTENDING PHYSICIAN Surgery; FAMILY PHYSICIAN Family Medicine | DX: L89.323 Pressure ulcer of left buttock, stage 3 (principal); I63.89 Other cerebral infarction; I10 Essential (primary) hypertension | CPT/HCPCS: 99212 ==

== ENCOUNTER → 2024-02-23 13:24 | Outpatient (REF) | payer OTHER, SELFPAY | LOC: WOUND 13:24 | PROVIDERS: ATTENDING PHYSICIAN Surgery; FAMILY PHYSICIAN Family Medicine | DX: L89.323 Pressure ulcer of left buttock, stage 3 (principal); I63.89 Other cerebral infarction; I10 Essential (primary) hypertension | CPT/HCPCS: 99212 ==

== ENCOUNTER → 2024-03-01 11:05 | Outpatient (REF) | payer OTHER, SELFPAY | LOC: DHCBC/DCA 11:05 | PROVIDERS: ATTENDING PHYSICIAN Internal Medicine Cardiovascular Disease; FAMILY PHYSICIAN Family Medicine | DX: I63.89 Other cerebral infarction (principal) | CPT/HCPCS: 78452; 93017; A9500; J2785 ==

== ENCOUNTER → 2024-03-22 07:37 | Outpatient (REF) | payer OTHER, SELFPAY | LOC: WOUND 07:37 | PROVIDERS: ATTENDING PHYSICIAN Surgery | DX: L89.323 Pressure ulcer of left buttock, stage 3 (principal); I63.89 Other cerebral infarction; I10 Essential (primary) hypertension | CPT/HCPCS: 99212 ==

== ENCOUNTER → 2024-04-05 13:10 | Outpatient (REF) | payer OTHER, SELFPAY | LOC: WOUND 13:10 | PROVIDERS: ATTENDING PHYSICIAN Surgery; FAMILY PHYSICIAN Family Medicine | DX: L89.323 Pressure ulcer of left buttock, stage 3 (principal); I63.89 Other cerebral infarction; I10 Essential (primary) hypertension | CPT/HCPCS: 17250; 99212 ==

== ENCOUNTER 2024-04-07 13:30 | Day surgery (SDC) | payer OTHER, SELFPAY ==
[2024-04-07] VITALS (19 sets, daily range): BP systolic 2–170; BP diastolic 49–102; BMI 27.6; BMI 27.7
[2024-04-07] MEDS: TYLENOL 1000 MG PO ×2 (13:50→20:42)
[2024-04-07] MEDS: NORMOSOL-R 1000 IV (13:50)
--- NOTE | 2024-04-07 16:03 | W.SUR.PREOP ---
Pre-Operative Surgical Note
-
I have examined this patient prior to the performance of the scheduled procedure.
The patient's condition is unchanged from the time of the current History and
Physical and the patient is able to undergo the scheduled procedure.
--- NOTE | 2024-04-07 18:04 | W.IMMPOSTOP ---
Surgical Immed Post Op Note
-
Primary Surgeon: VIDAL Phan MD
Assisting Surgeon:
Pre-op Diagnosis: Sacral stage IV pressur ulcer
Post-op Diagnosis: Same
Procedure Performed: Debridement and wound bed prep, flap reconstruction of sacral wound
Anesthesia Type: General
Specimen / Cultures: Tissue culture, wound bed, sacrum
Estimated Blood Loss: 30cc
Complications: None
Operative Findings: As expected
--- NOTE | 2024-04-07 18:06 | OR.RPT ---
Operative Report
Operative Report
Date of surgery: 04/07/2024
Surgeon: Ashlie Phan MD
Preoperative diagnosis: Stage IV sacral decubitus ulcer
Postoperative diagnosis: Same
Procedure:
1. Excision of sacral decubitus ulcer in preparation for flap reconstruction
2. Fasciocutaneous flap reconstruction of sacral decubitus ulcer, trunk
3. Adjacent tissue transfer trunk, 10 x 5 cm
complications: None
Anesthesia: General
EBL: 30 cc
Indications for procedure: Patient is a 84-year-old female who was found down after suffering a stroke which required a prolonged hospitalization during which time she developed a sacral decubitus wound. She has been followed in wound care and has
rehabilitated successfully. She is currently ambulatory. She is left managing a chronic wound and was referred by Dr. Anthony for consideration of flap closure. We discussed her options including debridement and closure by secondary intention
versus muscle flap primary closure. She understands this flap closure would require prolonged pressure offloading. Risk of the procedure include bleeding, infection, flap failure, wound healing issues, need for repeat procedure. She understood
these are his desire to proceed. She was present with her daughter. She underwent cardiology evaluation preoperatively and obtain clearance.
Procedure in detail: Patient was identified preoperatively and the surgical site was confirmed to be the sacrum. All questions were answered and consents were confirmed. Patient was taken back to the operating room placed prone on the operating
table. Anesthesia was induced in the supine position prior to repositioning. The patient was then prepped and draped in the usual sterile fashion using a combination of chlorhexidine and Betadine preps. Patient was draped and a timeout for
patient safety was performed and was confirmed that preoperative antibiotics have been administered bilateral SCDs were in place. Procedure began with drawing of the planned excision for wound bed prep of the sacrum. The wound base was explored
and measured and was found to be 12 x 11 cm. This went down to the the sacrum without grossly necrotic or infected bone. 1% lidocaine with epinephrine was injected in the proposed incisions and after excision of the wound, a planned rotation
advancement fasciocutaneous flap from the gluteus yelitza muscle was planned. Excision of the wound took place with a 15 blade and Bovie electrocautery. This was performed sharply. The wound bed was then irrigated with 3 L normal saline using the
Versajet. Meticulous hemostasis was ensured and the fasciocutaneous rotation advancement flap from the lateral gluteus muscle was then performed. The backcut was incised and Bovie electrocautery was carried down to the fascia the fascia was then
incised and the flap was raised on the perforating vessels of the superior and inferior gluteal arteries. A drain was placed and after the flap was sufficiently mobilized was able to be rotated without tension into the wound bed. this was just
inset with a series of 0 Vicryl sutures deep followed by 2-0 and 3-0 Vicryl sutures in the deep dermis. Due to persistent wound burden, and adjacent tissue transfer was then performed over an area 10 x 5 cm to allow for tension-free wound healing
this was performed using back cuts effectively excising the resultant dogear over the ischium. This was closed in a Z-plasty fashion. The drain was sutured in place and superficially 2-0 nylon's were run along the incision. Sterile dressing was
then placed consisting of bacitracin ABD pads and Ioban. The patient was then returned supine and extubated. She was taken to the PACU for further care.
--- NOTE | 2024-04-07 20:30 | PTCARENOTE ---
Patient coming from OR/PACU. Patient is AAO x3, on RA, in no acute distress. Patient has ESTELA drain to sacrum, surgical dressing is c/d/i. Patient oriented to room and call grullon within reach.
[2024-04-07] MEDS: FLOMAX 0.4 MG PO (20:42)
[2024-04-08] MEDS: TYLENOL 1000 MG PO ×2 (02:26→08:51)
[2024-04-08 03:44] VITALS: BP 126/59
[2024-04-08 06:27] VITALS: BP 141/67
[2024-04-08] MEDS: ProAmatine PO (06:31)
[2024-04-08] MEDS: SYNTHROID 50 MCG PO (06:33)
[2024-04-08 07:45] VITALS: BP 161/74
[2024-04-08] MEDS: THERAGRAN 1 TABLET PO (08:50)
[2024-04-08] MEDS: LIPITOR 10 MG PO (08:50)
[2024-04-08] MEDS: FEOSOL 325 MG PO (08:50)
[2024-04-08] MEDS: VITAMIN C 500 MG PO (08:50)
[2024-04-08] MEDS: LOW STRENGTH ASPIRIN 81 MG PO (08:51)
[2024-04-08] MEDS: MAGNESIUM OXIDE 500 MG PO (08:51)
[2024-04-08] MEDS: LOPRESSOR 12.5 MG PO (08:51)
--- NOTE | 2024-04-08 09:04 | W.PN.PLAS ---
Progress Note
Subjective Data
Doing well overnight, pain well-controlled
Alert and desires regular food for breakfast, no nausea
Objective Data
Vital Signs
Temp Pulse Resp BP Pulse Ox
97.8 F 89 17 161/74 96
04/08/24 07:45 04/08/24 08:51 04/08/24 07:45 04/08/24 08:51 04/08/24 07:45
Intake and Output
04/07/24 04/08/24 04/09/24
06:59 06:59 06:59
Intake Total 200 / 200
Output Total 162 / 162
Balance 38 / 38
Intake:
IV fluids (Total) 200 / 200
Normosal 200 / 200
Output:
Drain Output (Total) 162 / 162
Left Sacrum Abdulaziz-March 162 / 162
Other:
Number of approximated LARGE 5
amounts of urine
Physical exam:
No acute distress
No increased work of breathing
Alert and interactive
Drain serosanguineous with appropriate output
Dressing intact and dry
Offloading pressure in lateral decubitus position
Assessment / Plan
Wound stable. Patient continues to improve. Doing well.
Patient is stable. Will discharge to home once patient is able to ambulate, void, tolerate a PO diet and pain is adequately controlled.
Visiting Nurse care ordered, CM consult
Wound care discussed with patient.
Follow up in 2-3 weeks
Follow up with family physician for any medical issues.
Meds ordered
PT/OT eval
--- NOTE | 2024-04-08 09:09 | W.DCSUMMARY ---
Discharge Summary
Discharge Data
Date of Admission: 04/07/24
Date of Discharge: 04/08/24
-
Pending Results: Yes
Additional Pending Results:
Microbiology for outpatient abx
Hospital Course
Admitted following sacral wound debridement and flap closure
Did well overnight. Tolerated regular diet and pain controlled on PO meds. Resumed home medications. PT/OT consulted
Home with VN for drain management.
Discharge Plan
-
Patient Disposition: Home (Routine Discharge)
Condition: Good
Activity Restrictions/Additional Instructions:
Wound Care Instructions
04/08/24 Post op sacral dressing to stay in place for 7 days unless becomes saturated or becomes soiled. After dressing removed, clean wound with soap and water after each bowel movement.
Turn side to side every 1-2 hours, use pillow/s for positioning. No direct pressure on sacrum.
Elevate heels off bed with pillow or air chair cushion.
Use air chair cushion for car transport to physician appointment.
Follow up with Dr. Phan in 2-3 weeks.
Referrals:
UNKNOWN - PT NOT,INTERVIEWE [Family Provider] -
Prescriptions:
Continued
fluticasone propionate 50 mcg/actuation spray,suspension
2 spray INTRANASAL PRN PRN (Reason: allergies)
tamsulosin 0.4 mg capsule
0.4 mg PO .1PM
tramadol 50 mg Tablet
50 mg PO Q6HPRN PRN (Reason: moderate pain) 5 Days Qty: 20 0RF
midodrine 5 mg Tablet
2.5 mg PO BID@0700,1200 30 Days Qty: 60 0RF
ferrous sulfate [FeroSul] 325 mg (65 mg iron) Tablet
325 mg PO DAILY 30 Days Qty: 30 0RF
magnesium oxide 500 mg magnesium Tablet
500 mg PO DAILY 30 Days Qty: 30 0RF
acetaminophen 325 mg Tablet
650 mg PO Q4HPRN PRN (Reason: MILD PAIN) 30 Days Qty: 100 0RF
ascorbic acid (vitamin C) [Vitamin C] 500 mg Tablet
500 mg PO DAILY 30 Days Qty: 30 0RF
metoprolol tartrate 25 mg Tablet
12.5 mg PO DAILY 30 Days Qty: 15 0RF
multivitamin with folic acid [Tab-A-Lizzy] 400 mcg Tablet
1 tab PO DAILY 30 Days Qty: 30 0RF
atorvastatin 10 mg Tablet
10 mg PO DAILY 30 Days Qty: 30 0RF
levothyroxine 50 mcg Tablet
50 mcg PO MoTuWeThFrSa@0600 30 Days Qty: 30 0RF
aspirin [Children's Aspirin] 81 mg Tablet,Chewable
81 mg PO DAILY Qty: 0 0RF
Discontinued
Dakin's Solution 0.25 % Solution
1 applic topical DAILY 30 Days Qty: 473 1RF
Discharge Orders:
Discharge Patient (As Directed); Ordered 04/08/24
Ordered By: Phi Phan
Discharge Date and Time
Discharge Date/Time: 04/08/24 13:41
Print Language: SINHALA
--- NOTE | 2024-04-08 09:53 | WOUNDNOTE ---
[facility] RN note: Patient s/p sacral wound debridement and muscle flap yesterday by Dr. Phan. Post op sacral dressing D+I. Some drainage noted around ESTELA site contained in dressing. ESTELA drain intact. Patient lying on her R side. She stated she just
turned. L heel small stage 1 pressure injury (present on admission). Patient is on a [employer]ac[employer] Accumax. Patient has a good appetite. Pillow between legs. Heels off bed with air chair cushion. Gilmore texted Dr. Phan who confirmed post op dressing to
stay in place for 7 days unless becomes soiled, when dressing removed, it is to be cleansed with soap and water and then cleansed with soap and water after each bowel movement. Dr. Phan confirmed air mattress not needed as patient moves herself.
He also confirmed for transport home from hospital, she can be transported in a car with an air chair cushion.
--- NOTE | 2024-04-08 10:59 | VNURNOTE ---
Chart reviewed. Patient is current with [facility], SN, PT, OT. Will continue with [facility] upon DC. [facility] Vat Washer Ulisses made aware.
[2024-04-08 11:06] VITALS: BP 135/75; PULSE 73; O2SAT 97
--- NOTE | 2024-04-08 11:11 | CM ---
Addendum entered by Kristy Tran 04/08/24 12:24:
CM notified that Velia will need a chair cushion for transport home. Chacha Hernandez advised that she has provided one to Velia.
Original Note:
CM consult for VN. Pt is known to [facility] for RN, PT and OT. Notified Dian Boyle of plan for discharge to home today.
CM spoke with Velia about discharge plans and spoke with her family member Caron Bella at Velia's request. Caron will provide transport home today, early afternoon.
Plan: Discharge to home with resumption of [facility].
PCP: Yvette Marie
Pharmacy: [facility] on [address] in [place]
[2024-04-08 11:59] VITALS: BP 104/49
[2024-04-08] MEDS: ProAmatine 2.5 MG PO (12:29)
== END 2024-04-08 13:41 | disposition home or self-care (01) ==
LOC: SDS 13:30
PROVIDERS: ATTENDING PHYSICIAN Surgery Plastic and Reconstructive Surgery
DX: L89.154 Pressure ulcer of sacral region, stage 4 (principal)
CPT/HCPCS: 14301; 15002; 14302; 87070; 87176; 87205; 97162

== ENCOUNTER 2024-05-02 21:58 | Inpatient (IN) | payer OTHER, SELFPAY ==
[2024-05-02] VITALS (7 sets, daily range): BP systolic 113–160; BP diastolic 52–88; BMI 26.3
[2024-05-02 19:21] LABS: % Basophils 0.4 % (0-2); % Eosinophils 2.1 % (0-6); % Immature Granulocytes 0.5 % (0-0.5); % Lymphocytes 12.7 % (20.5-51.1); % Monocytes 7.6 % (1.7-9.3); % Neutrophils 76.7 % (42.2-75.2); Absolute Eosinophils 0.2 10^3/uL (0-0.7); Absolute Immature Granulocytes 0.1 10^3/uL (0-0.05); Absolute Lymphocytes 1.2 10^3/uL (1.2-3.4); Absolute Monocytes 0.7 10^3/uL (0.1-0.6); Absolute Neutrophils 7.3 10^3/uL (1.4-6.5); Hematocrit 30.6 % (37.0-47.0); Hemoglobin 10.4 g/dL (12.0-16.0); Mean Corpuscular Hgb 25.6 pg (27.0-31.0); Mean Corpuscular Volume 75.2 fL (81.0-99.0); Mean Platelet Volume 9.7 fL (7.4-10.4); Nucleated Red Blood Cells % 0 %; Platelet Count 251 10^3/uL (130-400); Red Blood Cell Count 4.07 10^6/uL (4.20-5.40); Red Cell Dist. Width 14.6 % (11.5-14.5); White Blood Cell Count 9.6 10^3/uL (4.8-10.8)
--- NOTE | 2024-05-02 19:22 | ED.GENMED ---
History of Present Illness
General
Chief Complaint: Skin Problem
Source: patient and family
Time Seen by Provider: 05/02/24 19:07
History of Present Illness
History of Present Illness:
84-year-old female presents emergency department status post sacral wound debridement and closure in April. She went home with a drain, and upon reassessment by her plastic surgeon on she had the drain removed. Since that time she has
been doing well until today when she was noted to have an area of pain, redness, warmth, and swelling. She does not have fever, chills, anorexia, nausea, vomiting, drainage, or other complaints.
Past History
Past History
ED Past Medical History: Cancer (Skin cancer), CVA, HTN, Hypercholesterolemia and Other (Migraines)
ED Past Surgical History: Other (Rectal tumor removed, sacral wound debridement and closure)
Social History
Tobacco: Non-smoker
Alcohol: None
Drug: None
Personal: Single
Living: alone
Family History
Family History: Other (Noncontributory)
Phy Exam
Physical Exam
Physical Exam:
GENERAL: Alert , in no apparent distress
EYE: pupils equal and reactive
NECK: Supple, no significant adenopathy.
ENT: o/p clr, mmm.
CARDIAC: Regular rate and rhythm .
LUNGS: Clear breath sounds bilaterally, no acute respiratory distress, no wheezes/rales/rhonchi
ABDOMEN: Soft, without focal tenderness, no r/g
NEUROLOGICAL: Alert and oriented, s/p cva nonfocal
SKIN: Warm and dry, skin intact. There is an 11 X 11 cm area of erythema/warmth/ttp, area where drain removed with superficial wet wound without active drainage, no crepitus--located at lateral margin of incision of decub repair
MUSCULOSKELETAL: No edema, well perfused.
PSYCH: Normal and appropriate interaction.
Course
Orders/Labs/Results
Orders:
Orders
05/02/24 19:09
Cardiac Monitoring- Treatment ONCE
IV Insert/Care/Rem.- Treatment PRN
05/02/24 19:11
Complete Blood Count/With Diff Urgent
Comprehensive Metabolic Panel Urgent
Lactic Acid Q4H
Comment: ON ICE, CANCEL 2ND ORDER IF FIRST LACTIC ACID LEVEL <2
05/02/24 19:19
Wound Culture [Wound/Abscess/Other Culture] Urgent
KOSTAS Source: Abscess
Specimen Description:
Date Specimen was Collected: 05/02/24
Time Specimen was Collected: 19:18
Comment: emma drain was removed on and swelling and inflamation developed
05/02/24 19:28
CT Pelvis With Iv Contrast Urgent
Comment:
Reason For Exam: 11 by 11 cm area of redness/swelling R buttock
05/02/24 21:06
Vancomycin [Vancocin] 1,500 mg 0.9% Sodium Chloride [Nss] 20 ml 0.9% Sodium Chloride 250 ml [Nss] 250 ml IV NOW
05/02/24 21:38
fluticasone propionate 2 spray NASAL PRN PRN
05/02/24 21:42
Admit/Transfer Patient As Directed
Co-Sign Provider:
Level of Care: Inpatient admission
Assign to:: Medical/Surgical
Physician / Group: Hospitalist
Diagnosis: Gluteal Abscess
Reason for Hospitalization: Abscess requiring drainage
Expected length of stay greater than two midnights?: Yes
ELOS- Estimated Length of Stay in days: 2
I certify the patient meets the requirements for IP care: Yes
PRN Pain Medication Management As Directed
May give lesser potent ordered pain med per pt: Yes
preference::
Protocol:: Medication orders for pain may be administered in a
manner that supports deferring to patient preference
when the pt is:
- Requesting an ordered lesser potent pain medication.
Least to most potent pain medications are defined
as: acetaminophen < NSAID < tramadol < opioids
(morphine, oxycodone, hydromorphone).
- Requesting a lesser dose of the same medication IF
ORDERED.
- Requesting a less intrusive route of administration
if both routes are prescribed by the provider (PO <
IV).
05/02/24 21:43
Code Status As Directed
Resuscitation Status: Do not resuscitate
Reached after discussion with pt or family/Healthcare POA: Yes
05/02/24 21:45
DNR Bracelet Application ONCE
05/02/24 22:00
Flush (0.9% Sodium Chloride) [Flush (Nss)] See Dose Instructions IV PER PROTOCOL
05/02/24 22:38
Acetaminophen [Tylenol] 650 mg PO Q4HPRN PRN
Bisacodyl [Dulcolax] 10 mg RECTAL [id number] PRN
Dextrose 5%/0.45%Sodchl 1000ML [D5/0.45%NaCl] 1,000 ml IV 50 mls/hr
Docusate W/Senna [Senokot-S] 1 tablet PO BIDPRN PRN
HYDROmorphone [Dilaudid] 0.5 mg IV Q4HPRN PRN
Ondansetron Injectable [Zofran] 4 mg IV Q6HPRN PRN
Polyethylene Glycol Powder [Miralax] 17 grams PO DAILYPRN PRN
Tramadol HCl [Ultram] 50 mg PO Q6HPRN PRN
05/02/24 22:38
[facility] CONSULT Routine
Consulting Provider: Rao Larsen
Was physician already notified: Yes
Reason for Consult/Procedure: drainage of left buttock abscess
Acknowledgement that appropriate orders are entered: Yes
PLASTIC SURGERY CONSULT Routine
Consulting Provider: Phi Phan
Was physician already notified: Yes
Reason for Consult: recurrent buttock abscess s/p debridement
MR Pelvis Without Contrast Routine
Comment:
Reason For Exam: evaluate sacral osteomyelitis
Recent pill cam endoscopy?: No
Activity As Directed
Activity Level: With Assistance
Vital Signs As Directed
Frequency: Per unit guidelines
DX Deep Vein Thrombosis Video Routine
05/02/24 23:57
MRSA Screen Routine
KOSTAS Source: Nose
Specimen Description:
05/03/24 00:00
Ampicillin/Sulbactam 3 G [Unasyn] 3 gm 0.9% Sodium Chloride 100 ml [Nss] 100 ml IV Q6H
05/03/24 Breakfast
NPO
Allow oral meds: Yes
Allow clear liquids: Sips of Clears
NPO with Ice Chips: Yes
Basic Metabolic Panel IN AM
CRP [C-Reactive Protein] IN AM
Complete Blood Count/No Diff IN AM
Creatine Phosphokinase IN AM
ESR [Erythrocyte Sed Rate] IN AM
Levothyroxine [Synthroid] 50 mcg PO MoTuWeThFrSa@0600
05/03/24 07:00
Midodrine [ProAmatine] 2.5 mg PO BID@0700,1200
05/03/24 08:00
Aspirin Chewable [Low Strength Aspirin] 81 mg PO DAILY
Atorvastatin [Lipitor] 10 mg PO DAILY
Ferrous Sulfate [Feosol] 325 mg PO DAILY
Metoprolol [Lopressor] 12.5 mg PO DAILY
05/03/24 13:00
Tamsulosin [Flomax] 0.4 mg PO DAILY@1300
05/03/24 18:00
Enoxaparin Sodium [Lovenox] 40 mg SC QPM
Abnormal Lab Results
05/02/24
19:11
RBC 4.07 L 10^6/uL
(4.20-5.40)
Hgb 10.4 L g/dL
(12.0-16.0)
Hct 30.6 L %
(37.0-47.0)
MCV 75.2 L fL
(81.0-99.0)
MCH 25.6 L pg
(27.0-31.0)
RDW 14.6 H %
(11.5-14.5)
Abs Immat Gran (auto) 0.1 H 10^3/uL
(0-0.05)
Absolute Neuts (auto) 7.3 H 10^3/uL
(1.4-6.5)
Absolute Monos (auto) 0.7 H 10^3/uL
(0.1-0.6)
Neutrophils % 76.7 H %
(42.2-75.2)
Lymphocytes % 12.7 L %
(20.5-51.1)
Total Protein 5.8 L g/dl
(6.3-8.2)
Albumin 3.1 L g/dl
(3.5-5.0)
05/02/24 19:11
05/02/24 19:11
Vital Signs
Initial and Last Documented VS:
Initial Vital Signs
Temp Pulse Resp BP Pulse Ox
98.0 F 117 16 134/88 98
05/02/24 18:37 05/02/24 18:37 05/02/24 18:37 05/02/24 18:37 05/02/24 18:37
Last Documented Vital Signs
Temp Pulse Resp BP Pulse Ox
97.9 F 95 20 160/82 98
05/02/24 23:50 05/02/24 23:50 05/02/24 23:50 05/02/24 23:50 05/02/24 23:50
*Critical Care Note
Total Time (30-74mins, 75-104mins- exclusive of procedures): Not Applicable
Update Note
Update Note:
Patient presents to the Emergency Department with _redness warmth and swelling at wound repair site
Number and Complexity of Problems Addressed at the Encounter
� Chronic conditions affecting care:
� Acute Exacerbation and/or Progression of Chronic Illness:
� Differential Diagnosis includes: But not limited to cellulitis, abscess, hematoma, etc. etc.
Amount and/or Complexity of Data to be Reviewed and Analyzed
� I performed an independent evaluation of and my interpretation is:
EKG:
CT: Read by vision, walled off fluid collection in the deep tissues of the left buttock extending to the right of the midline along the posterior aspect of the sacrum measuring 20 x 3.5 x 5.7 with extensive inflammatory
surrounding likely representing an extensive abscess with surrounding cellulitis. Consider MRI of pelvis to evaluate for sacral osteomyelitis. 3.1 cm left adnexal cyst. Partial image probable hematic cystic foci.
Xrays:
Laboratory Studies: Generally unremarkable, normal white blood cell count,baseline anemia
Other:
� Review of other/old records reveals: Discharge summary from April procedure reviewed
� Clinical information was obtained by an independent historian: Niece who is bedside
� Prescriptions/Medications Considered but not given:
� Further testing considered but not performed: In consideration of best study to assess collection, case discussed with radiology Dr. Pena, who recommends CT with IV contrast
Risk of Complications and/or Morbidity or Mortality of Patient Management
� Social determinants of health affecting care:
� Discussion with other providers (PCP, Hospitalists, Consultants, etc):
� Escalation of care including admission/observation vs risk of discharge considered: 8:54 PM patient reassessed, updated regarding plan of care and findings of abscess. IV antibiotics ordered. Patient does not exhibit signs to
suggest sepsis, vital signs stable, lactic acid normal, etc. Discussed with patient and niece plan for IV antibiotics, admission, likely drainage in AM. Case discussed with admitting hospitalist via [place] text Dr Villafana. Also d/w pt's
plastic surgeon, who agrees with plan including IR to drain in am.
ED Attending Note
-
Portions of this chart may have been created with voice recognition software.� Occasional wrong word or��sound alike� substitutions may have occurred due to the inherent limitations of voice recognition software.
Discharge Plan
Departure
Patient Disposition: Admit
Date of Disposition: 05/02/24
Time of Disposition: 20:55
Admit to: Med/Surg
Presentation/result/management discussed w/ accepting MD/DO: Hospitalist
Discharge Problem:
Abscess
Interventions
Interventions:
*Risk Screen - Suicide Last Done: 05/02/24 19:02
*General Assessment Last Done: 05/02/24 19:02
*Neglect/Abuse Screening Last Done: 05/02/24 19:02
ED- Fall Risk Assessment Last Done: 05/02/24 19:02
*ED COVID-19 Vaccine History Last Done: 05/02/24 19:02
*Nursing Disposition Last Done: 05/02/24 22:42
ED-Skin Assessment Last Done: 05/02/24 18:59
Discharge Date and Time
Discharge Date/Time: 05/02/24 22:42
[2024-05-02 19:41] LABS: ALT (SGPT) < 10 U/L (0-35); AST (SGOT) 23 U/L (14-36); Albumin 3.1 g/dl (3.5-5.0); Alkaline Phosphatase 64 U/L (38-126); Blood Urea Nitrogen 13 mg/dl (7-17); Carbon Dioxide 25 mmol/L (22-30); Chloride 105 mmol/L (98-107); Estimated Creatinine Clearance 42 ml/min; Glucose 94 mg/dl (70-99); Potassium 4.1 mmol/L (3.5-5.1); Sodium 141 mmol/L (135-145); Total Bilirubin 0.9 mg/dl (0.2-1.3); Total Protein 5.8 g/dl (6.3-8.2); eGFR > 60.00
[2024-05-02] MEDS: VANCOCIN 300 ML IV (21:22)
[2024-05-02] MEDS: VANCOCIN 300 MG IV (21:22)
--- NOTE | 2024-05-02 21:24 | HPS.HSE ---
Family Physician
-
Family Physician: Yvette Marie
Chief Complaint
-
Left hip/buttock swelling and pain
History of Present Illness
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
retention, seen and sacral abscess s/p debridement on April 11 who comes into the emergency department with approximately 2 days of right sided buttock swelling.
Patient had a debridement for abscess on April 07. Apparently tissue culture is still pending at this time. She has not been on any recent antibiotics. Plastic surgery the patient had been in the office twice with attempted debridement. A drain
was removed on . Patient reports that for the last 2 days she cannot lay on her left side due to pain and swelling. She reports that she has been having night sweats for several weeks now. There is no demonstration of any michel fevers at
home. She denies any nausea or vomiting. She denies having any chills. She does report that while she has night sweats frequently over the last several weeks over the last 2 days and especially today she did have a daytime sweating.
On arrival to the patient was afebrile blood pressure was 115/67 pulse 86 oxygen saturation was 90% on room air. She does not have leukocytosis with a white count of 9.6 hemoglobin was 10.4. Chemistries were within normal limits without any anion
gap. CT of the pelvis showed a large walled off fluid collection in deep tissues of the left buttocks overlying the sacrum. There is soft tissue stranding.
Medical History
Past Medical History
Past Medical History: Reports CVA, HTN, Hypercholesterolemia and Hypothyroidism
Past Surgical History: Reports Other
Additional Past Surgical History:
debridement
Social History
Tobacco: Non-smoker
Alcohol: None
Drug: None
Personal: Single
Living: With Family
Employment: Retired
Family History
Family History: Not pertinent
Allergies / Home Medications
Allergies reflects when Allergies were last updated in [employer].
Home Medications with original date entered in [employer]
Allergy/Medication List:
Allergies
Allergy/AdvReac Type Severity Reaction Status Date / Time
chocolate Allergy MOUTH SORES Verified 05/02/24 18:38
lisinopril [From Prinivil] Allergy coughing Verified 05/02/24 18:38
Home Medications
fluticasone propionate 50 mcg/actuation nasal spray,suspension 2 spray intranasal PRN PRN allergies 12/06/23
acetaminophen 325 mg tablet 650 mg (2 x 325 mg) PO Q4HPRN PRN MILD PAIN 30 days #100 tabs 01/06/24
ascorbic acid (vitamin C) 500 mg tablet (Vitamin C) 500 mg PO DAILY supplement 30 days #30 tabs 01/06/24
aspirin 81 mg chewable tablet (Children's Aspirin) 81 mg PO DAILY CVA #0 tabs 01/06/24
atorvastatin 10 mg tablet 10 mg PO DAILY cholesterol 30 days #30 tabs 01/06/24
ferrous sulfate 325 mg (65 mg iron) tablet (FeroSul) 325 mg PO DAILY Supplement 30 days #30 tabs 01/06/24
levothyroxine 50 mcg tablet 50 mcg PO MoTuWeThFrSa@0600 hypothyroidism 30 days #30 tabs 01/06/24
magnesium oxide 500 mg PO DAILY Supplement 30 days #30 tabs 01/06/24
metoprolol tartrate 25 mg tablet 12.5 mg (1/2 x 25 mg) PO DAILY Heart disease/condition 30 days #15 tabs 01/06/24
midodrine 5 mg tablet 2.5 mg (1/2 x 5 mg) PO BID@0700,1200 hypotension 30 days #60 tabs 01/06/24
multivitamin with folic acid 400 mcg tablet (Tab-A-Lizzy) 1 tab PO DAILY Supplement 30 days #30 tabs 01/06/24
tamsulosin 0.4 mg capsule 0.4 mg PO .1PM Urinary Hesitancy 04/01/24
tramadol 50 mg tablet 50 mg PO Q6HPRN PRN moderate pain 5 days #20 tabs 04/08/24
Review of Systems
-
Constitutional: Reports Night Sweats
EENT: Reports No Symptoms
Respiratory: Reports No Symptoms
Cardiac: Reports No Symptoms
Abdomen/GI: Reports No Symptoms
: Reports No Symptoms
Musculoskeletal: Reports Joint Swelling
Skin: Reports No Symptoms
Neurological: Reports No Symptoms
Endocrine: Reports No Symptoms
Hematologic/Lymphatic: Reports No Symptoms
Psych: Reports No Symptoms
Physical Exam
Vital Signs
Vital Signs
Temp Pulse Resp BP Pulse Ox
98.0 F 88 18 125/67 96
05/02/24 18:37 05/02/24 20:51 05/02/24 20:51 05/02/24 20:46 05/02/24 20:48
Physical Exam
General: Well Developed, Well Nourished, No Apparent Distress and Pain
HEENT: NormoCephalic, Anicteric, Moist mucous membranes and Atraumatic
Respiratory: Clear
Cardiac: S1/S2 and Regular Rhythm
GI: Soft, Non Tender, Non Distended and Normal Bowel Sounds
Rectal: Brown
Genito-urinary: Deferred by me
Musculoskeletal: No Clubbing, No Cyanosis and No Edema
Skin: Other (10 cm long swelling on the superior posterior side of the left buttocks, tender to touch with erythema and minimal surrounding edema. )
Neuro: AO x 3 and Nonfocal/grossly intact
Hematologic/Lymphatic: No Lymphadenopathy
Psych: Calm
Laboratory Results
-
05/02/24 19:11
05/02/24 19:11
Laboratory Results
Lactic Acid Cancelled 05/02/24 23:15
Total Bilirubin 0.9 mg/dl (0.2-1.3) 05/02/24 19:11
AST 23 U/L (14-36) 05/02/24 19:11
ALT < 10 U/L (0-35) 05/02/24 19:11
Alkaline Phosphatase 64 U/L (38-126) 05/02/24 19:11
Data Reviewed
-
CT Scan: Report Reviewed by me
Lab Data: Labs Reviewed by me
Old Records: Reviewed
Impression/Plan
-
IMPRESSION:
PLAN:
1. Left Gluteal Fluid Collection - A large indurated fluid collection in the deep tissue of the left buttocks with surrounding fat stranding. Externally, there is tense swelling, redness and tenderness to palpation. This recurred almost as soon
as the drain was removed from her prior debridement. Hematoma/seroma likely. Cannot rule out infectious etiology and possibly osteomyelitis. She does not appear toxic currently. Apparently had prior attempts at drainage in the office.
- admit to general medical floor
- sample culture done in Ed, blood cultures if febrile
- VANC given in ED. Continue with Unasyn for now. MRSA swab.
- IR consultation for drainage
- surgery consult (Dr. Phan)
- MRI pelvis to eval sacral osteo, check crp, esr in am
- gentle hydration with d5 1/2 NS and NPO after midnight.
- pain management
2. Chronic management of hyperlipidemia, urinary retention and hypothyroid per outpatient regimen
DVT PPX - lovenox sq
Code Status - DNR
[2024-05-02] MEDS: D5/0.45%NACL 1000 IV (23:06)
[2024-05-02] MEDS: UNASYN IV (23:13)
--- NOTE | 2024-05-02 23:50 | PTCARENOTE ---
Pt transferred from ED. Pt ambulated into room with assistance. Pt AAOX3, able to make needs known, VSS. Pt oriented to unit, call grullon within reach. Will continue with current plan.
[2024-05-03] VITALS (9 sets, daily range): BP systolic 85–141; BP diastolic 56–75; BMI 25.8
[2024-05-03] MEDS: UNASYN IV ×4 (05:23→23:52)
[2024-05-03] MEDS: SYNTHROID 50 MCG PO (05:24)
[2024-05-03] MEDS: ProAmatine PO (06:27)
[2024-05-03] MEDS: LIPITOR 10 MG PO (08:20)
[2024-05-03] MEDS: LOW STRENGTH ASPIRIN 81 MG PO (08:20)
[2024-05-03] MEDS: FEOSOL 325 MG PO (08:20)
[2024-05-03] MEDS: LOPRESSOR 12.5 MG PO (08:20)
[2024-05-03 08:22] LABS: Hematocrit 31.8 % (37.0-47.0); Hemoglobin 10.6 g/dL (12.0-16.0); Mean Corp Hgb Conc. 33.3 g/dL (33.0-37.0); Mean Corpuscular Hgb 25.3 pg (27.0-31.0); Mean Corpuscular Volume 75.9 fL (81.0-99.0); Platelet Count 246 10^3/uL (130-400); Red Blood Cell Count 4.19 10^6/uL (4.20-5.40); Red Cell Dist. Width 14.6 % (11.5-14.5); White Blood Cell Count 6.9 10^3/uL (4.8-10.8)
[2024-05-03 08:55] LABS: Blood Urea Nitrogen 10 mg/dl (7-17); Calcium 8.9 mg/dl (8.4-10.2); Carbon Dioxide 25 mmol/L (22-30); Chloride 105 mmol/L (98-107); Creatine Phosphokinase 25 U/L (30-135); Estimated Creatinine Clearance 47 ml/min; Glucose 103 mg/dl (70-99); Potassium 3.5 mmol/L (3.5-5.1); Sodium 139 mmol/L (135-145); eGFR > 60.00
[2024-05-03 09:35] LABS: Erythrocyte Sed Rate 50 mm/hour (0-20)
--- NOTE | 2024-05-03 11:27 | W.PN.HOSP.TC ---
Today's Communication/Plan
-
IV Unasyn
s/p ESTELA drain placement
F/U cultures
Assessment / Plan
Assessment / Plan
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
retention, seen and sacral abscess s/p debridement on April 11 who comes into the emergency department with approximately 2 days of right sided buttock swelling.
Pelvis CT
IMPRESSION:
1. Fluid collection within the soft tissues of the superior left buttock, measuring 20.9 x 5.7 x 3.5 cm, with wall enhancement and adjacent fat stranding. Findings are most suggestive of abscess or infected hematoma.
2. The fluid collection extends to the left iliac bone and left sacrum, however there is no CT evidence of osteomyelitis. MRI may be more sensitive if clinical concern is high.
3. Left ovarian cyst measures 2.8 cm in diameter. Consider topical ultrasound for further characterization.
4. Calcified uterine fibroids.
1. Left Gluteal Fluid Collection - A large indurated fluid collection in the deep tissue of the left buttocks with surrounding fat stranding. Externally, there is tense swelling, redness and tenderness to palpation. This recurred almost as soon
as the drain was removed from her prior debridement. Hematoma/seroma likely. Cannot rule out infectious etiology and possibly osteomyelitis. She does not appear toxic currently. Apparently had prior attempts at drainage in the office.
- admit to general medical floor
- sample culture done in Ed, blood cultures if febrile
- VANC given in ED. Continue with Unasyn for now. MRSA swab.
- s/p IR guided drainage this morning; with ESTELA drain in place
- F/U gram stain and culture
- surgery consult (Dr. Phan)
- F/U results MRI Pelvis
- resume diet and stop fluids
- pain management
2. Chronic management of hyperlipidemia, urinary retention and hypothyroid per outpatient regimen
DVT PPX - lovenox sq
Code Status - DNR
Anticipated Discharge: 24 - 48 hours
Subjective/Interval History
-
Date of Service: May 03, 2024
s/p IR procedure
Objective Data
-
Labs:
Laboratory Results
05/03/24
07:26
WBC 6.9
Hgb 10.6 L
Hct 31.8 L
Plt Count 246
Sodium 139
Potassium 3.5
Chloride 105
Carbon Dioxide 25
BUN 10
Creatinine 0.8
Glucose 103 H
Calcium 8.9
Vital Signs:
Vital Signs
Temp Pulse Resp BP Pulse Ox
98.2 F 85 20 137/73 95
05/03/24 10:48 05/03/24 10:48 05/03/24 10:48 05/03/24 10:48 05/03/24 10:48
Review of Systems
-
History Source: Patient
All other systems: Reviewed and negative
Physical Exam
-
General: No Apparent Distress
HEENT: PERRLA
Respiratory: Clear to Auscultation; Negative Wheezes
Cardiac: Regular Rhythm and S1/S2
GI: Soft and Nontender
Musculoskeletal: No Edema and Other (ESTELA drain in place left buttock, serosanguinous fluid )
Skin: Warm and Dry; Negative Rash
Neuro: AO x 3
Psych: Calm
Data Reviewed
-
Diagnostic Radiology: Report Reviewed by me
Labs: Labs Reviewed by me
--- NOTE | 2024-05-03 11:52 | W.PN.UPDATE ---
Update Note
Progress Note Update
US guided left buttock drainage catheter placed, yielding 110 cc of purulent bloody fluid. Sent for C+S.
--- NOTE | 2024-05-03 12:20 | PTCARENOTE ---
05/03- Patient returned from procedure without issue. L-Lateral Drain CDI with surgical site CDI with sutures intact. Currently draining cloudy pink drainage. Orders to flush drain with 10cc NSS DAILY. This was just done in [facility] post-procedure.
Patient is AAOX3 but drowsy, denies pain at this time. Continue to monitor.
[2024-05-03] MEDS: ProAmatine 2.5 MG PO (13:00)
[2024-05-03] MEDS: FLOMAX 0.4 MG PO (13:11)
[2024-05-03] MEDS: LOVENOX 40 MG SC (17:36)
[2024-05-04] MEDS: UNASYN IV ×3 (05:47→17:03)
[2024-05-04] MEDS: SYNTHROID 50 MCG PO (05:57)
[2024-05-04] MEDS: ProAmatine PO (05:58)
[2024-05-04 07:43] VITALS: BP 142/87
[2024-05-04] MEDS: LOPRESSOR 12.5 MG PO (09:50)
[2024-05-04] MEDS: LIPITOR 10 MG PO (09:50)
[2024-05-04] MEDS: LOW STRENGTH ASPIRIN 81 MG PO (09:50)
[2024-05-04] MEDS: FEOSOL 325 MG PO (09:50)
--- NOTE | 2024-05-04 11:51 | W.PN.HOSP.TC ---
Today's Communication/Plan
-
add IV Vanc while awaiting final cultures
Assessment / Plan
Assessment / Plan
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
retention, seen and sacral abscess s/p debridement on April 11 who comes into the emergency department with approximately 2 days of right sided buttock swelling.
Pelvis CT
IMPRESSION:
1. Fluid collection within the soft tissues of the superior left buttock, measuring 20.9 x 5.7 x 3.5 cm, with wall enhancement and adjacent fat stranding. Findings are most suggestive of abscess or infected hematoma.
2. The fluid collection extends to the left iliac bone and left sacrum, however there is no CT evidence of osteomyelitis. MRI may be more sensitive if clinical concern is high.
3. Left ovarian cyst measures 2.8 cm in diameter. Consider topical ultrasound for further characterization.
4. Calcified uterine fibroids.
MRI Pelvis
IMPRESSION:
1. LARGE 17.1 cm RIM-ENHANCING ABSCESS in the subcutaneous fat POSTERIOR to the LEFT ILIAC BONE and left gluteus minimus muscle surrounded by SEVERE ENHANCING CELLULITIS.
2. Mild myositis in the left gluteus medius muscle.
3. No MRI evidence for acute osteomyelitis.
4. Multiple uterine leiomyoma.
5. Severe diverticulosis in the sigmoid colon.
6. 2.7 cm left ovarian cyst.
7. Small amount of peritoneal fluid in the pelvis.
1. Left Gluteal Fluid Collection/Abscess growing staph
-s/p debridement earlier in April with ESTELA drain (no systemic abx)
- cultures growing staph
-continue Unasyn, add Vanc while awaiting final culture
- s/p IR guided drainage 05/03; with ESTELA drain in place
- surgery consult (Dr. Phan)
- MRI results above
- resume diet and stop fluids
- pain management
2. Chronic management of hyperlipidemia, urinary retention and hypothyroid per outpatient regimen
DVT PPX - lovenox sq
Code Status - DNR
Anticipated Discharge: 24 - 48 hours
Subjective/Interval History
-
Date of Service: May 04, 2024
feeling well
intermittent pain from tube but overall pain improved
no chest pain or shortness of breath
mobilizing OKay
Objective Data
-
Vital Signs:
Vital Signs
Temp Pulse Resp BP Pulse Ox
98.1 F 89 18 142/87 98
05/04/24 07:43 05/04/24 07:43 05/04/24 07:43 05/04/24 07:43 05/04/24 07:43
I&O
05/03/24 05/04/24 05/05/24
06:59 06:59 06:59
Intake Total 970 / 970
Output Total 110 / 110
Balance 860 / 860
Review of Systems
-
History Source: Patient
All other systems: Reviewed and negative
Physical Exam
-
General: No Apparent Distress
HEENT: PERRLA
Respiratory: Clear to Auscultation; Negative Wheezes
Cardiac: Regular Rhythm and S1/S2
GI: Soft and Nontender
Musculoskeletal: No Edema and Other (ESTELA drain in place left buttock, serosanguinous fluid )
Skin: Warm and Dry; Negative Rash
Neuro: AO x 3
Psych: Calm
Data Reviewed
-
Diagnostic Radiology: Report Reviewed by me
Labs: Labs Reviewed by me
--- NOTE | 2024-05-04 12:01 | PHA.VAN.IN ---
Assessment
- Assessment
Renal Function: Appears similar to baseline
Concomitant Antimicrobials: ampicillin/sulbactam
AUC Dosing Plan
- Dosing Variables
Dosing Weight (kg): 68
Dosing CrCl (ml/min): 47
Vd coefficient (L/kg): 0.7
- Empiric Dosing
Initial / Loading Dose: Vanc 1000mg - administration pending
Maintenance Regimen: Vanc 1000mg Q24H starting 05/05 0600 in lieu of loading dose
Estimated AUC (mcg*h/mL): 494
Estimated Peak (mcg*h/mL): 32.5
Estimated Trough (mcg/ml): 12
Estimated Half Life (H): 16
- Monitoring
No levels ordered at this time: consider levels in next few days
Pharmacokinetics Vancomycin I
- -
Patient Age: 84
Patient Sex: Female
Vancomycin Day #: 1
Indication: Skin And Soft Tissue
Requesting Provider: Dr. Lucas
Pertinent Antimicrobial Allergies:
no pertinent antibiotic allergies
Height / Weight:
Height 5 ft 4 in
Actual Weight 68 kg
- Vital Signs / Lab Results
Temp Pulse Resp BP Pulse Ox
98.1 F 89 18 142/87 98
05/04/24 07:43 05/04/24 07:43 05/04/24 07:43 05/04/24 07:43 05/04/24 07:43
Lab Results - Hematology
05/02/24 05/03/24
19:11 07:26
WBC 9.6 6.9
Lab Results - Chemistry
05/02/24 05/03/24
19:11 07:26
BUN 13 10
Creatinine 0.9 0.8
Estimated Creat Clear 42 47
Albumin 3.1 L
05/02/24 05/02/24
19:11 23:15
Lactic Acid 1.0 Cancelled
Microbiology Results
05/02/24 19:19 Wound Culture - Preliminary
Abscess Staphylococcus aureus
Gram Stain - Preliminary
05/03/24 09:35 Wound Culture - Preliminary
Abscess Staphylococcus aureus
Gram Stain - Preliminary
05/02/24 23:57 MRSA Screen - Final
Nose No Methicillin Resistant Staphylococcus aureus isolated.
[2024-05-04] MEDS: ProAmatine 2.5 MG PO (12:08)
[2024-05-04] MEDS: FLOMAX 0.4 MG PO (12:08)
[2024-05-04] MEDS: VANCOCIN 200 IV (13:13)
--- NOTE | 2024-05-04 14:10 | VNURNOTE ---
Home health liaison met with patient and henrry Sheets to discuss Resuming VN services, visit scheduling/frequency, homebound status and pet policy. Patient understands home visits will be 1-2 times a week to assess and teach medical management.
Patient aware a visiting nurse will contact her for start of care within 1-2 days after discharge from . [facility] Referral completed in care port.
[2024-05-04 15:33] VITALS: BP 154/84
--- NOTE | 2024-05-04 15:57 | CM ---
logistics manager reviewed patient's chart and met with patient and patient lives alone in a modular home, patient was independent with adl's and uses a walker with ambulation, patient had a stroke and patient's niece Caron is looking for assisted living
for patient in the future. logistics manager reviewed a list of private duty nursing and assisted livings in area, also [facility] as patient's niece lives out of state and is looking for someone to help with placement in this area. Plamn is to home
with visiting nurses, patient has emma drain.
Pharmacy: [facility]
PCP: Von Marie
Plan; Home with [facility].
[2024-05-04] MEDS: LOVENOX 40 MG SC (17:03)
[2024-05-04 23:22] VITALS: BP 149/85
[2024-05-05] MEDS: UNASYN IV ×2 (00:12→05:43)
[2024-05-05] MEDS: ProAmatine 2.5 MG PO (06:12)
[2024-05-05] MEDS: SYNTHROID 50 MCG PO (06:15)
[2024-05-05] MEDS: VANCOCIN 200 IV (06:17)
[2024-05-05 07:00] VITALS: BP 138/82
--- NOTE | 2024-05-05 08:22 | PHA.VAN.FU ---
Addendum entered and electronically signed by Apple Royal [facility] 05/05/24 08:55:
Agree with resident's assessment and plan below.
Original Note:
Vancomycin Assessment / Plan
- Assessment
Renal Function: Stable ([place] to baseline)
WBC's are: WNL
In the past 24 hrs, patient has been: Afebrile
Concomitant Antimicrobials: Ampicillin/Sulbactam
- Dosing Plan
Continue: Vanco 1G Q24H
- Monitoring Plan
No level(s) ordered at this time: consider level in the next few days
- Follow Up
Pharmacy will continue to follow.
Vancomycin Follow UP
- -
Patient Age: 84
Patient Sex: Female
Vancomycin Day #: 2
Indication: Skin And Soft Tissue
Requesting Provider: Dr. Lucas
Pertinent Antimicrobial Allergies:
no pertinent antibiotic allergies
Height / Weight:
Height 5 ft 4 in
Actual Weight 68 kg
- Vital Signs / Lab Results
Temp Pulse Resp BP Pulse Ox
97.5 F 87 16 126/69 96
05/04/24 23:22 05/05/24 06:12 05/04/24 23:22 05/05/24 06:12 05/04/24 23:22
Lab Results - Hematology
05/02/24 05/03/24
19:11 07:26
WBC 9.6 6.9
Lab Results - Chemistry
05/02/24 05/03/24
19:11 07:26
BUN 13 10
Creatinine 0.9 0.8
Estimated Creat Clear 42 47
Albumin 3.1 L
05/02/24 05/02/24
19:11 23:15
Lactic Acid 1.0 Cancelled
Microbiology Results
05/02/24 19:19 Wound Culture - Preliminary
Abscess Staphylococcus aureus
Gram Stain - Preliminary
05/03/24 09:35 Wound Culture - Preliminary
Abscess Staphylococcus aureus
Gram Stain - Preliminary
05/02/24 23:57 MRSA Screen - Final
Nose No Methicillin Resistant Staphylococcus aureus isolated.
[2024-05-05] MEDS: LOW STRENGTH ASPIRIN 81 MG PO (08:57)
[2024-05-05] MEDS: LIPITOR 10 MG PO (08:57)
[2024-05-05] MEDS: FEOSOL 325 MG PO (08:57)
[2024-05-05] MEDS: LOPRESSOR 12.5 MG PO (08:59)
--- NOTE | 2024-05-05 10:40 | CM ---
document imaging manager continues to follow with patient progress and plan is to home with [facility] when stable, list of private caregivers and shelter options provided to patient.
Plan; Home with [facility] for ESTELA drain care.
--- NOTE | 2024-05-05 11:57 | W.PN.HOSP.TC ---
Today's Communication/Plan
-
ID consult
Assessment / Plan
Assessment / Plan
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
retention, seen and sacral abscess s/p debridement on April 11 who comes into the emergency department with approximately 2 days of left sided buttock swelling.
Pelvis CT
IMPRESSION:
1. Fluid collection within the soft tissues of the superior left buttock, measuring 20.9 x 5.7 x 3.5 cm, with wall enhancement and adjacent fat stranding. Findings are most suggestive of abscess or infected hematoma.
2. The fluid collection extends to the left iliac bone and left sacrum, however there is no CT evidence of osteomyelitis. MRI may be more sensitive if clinical concern is high.
3. Left ovarian cyst measures 2.8 cm in diameter. Consider topical ultrasound for further characterization.
4. Calcified uterine fibroids.
MRI Pelvis
IMPRESSION:
1. LARGE 17.1 cm RIM-ENHANCING ABSCESS in the subcutaneous fat POSTERIOR to the LEFT ILIAC BONE and left gluteus minimus muscle surrounded by SEVERE ENHANCING CELLULITIS.
2. Mild myositis in the left gluteus medius muscle.
3. No MRI evidence for acute osteomyelitis.
4. Multiple uterine leiomyoma.
5. Severe diverticulosis in the sigmoid colon.
6. 2.7 cm left ovarian cyst.
7. Small amount of peritoneal fluid in the pelvis.
1. Left Gluteal Fluid Collection/Abscess growing staph
-s/p debridement earlier in April with ESTELA drain
- s/p IR guided drainage 05/03; with ESTELA drain in place
- cultures growing MSSA
- s/p 2 days IV Unasyn - transition to oral Augmentin (confirming length of time with Dr. Phan)
-will ask ID to assist with length of time antibiotics
-Dr. Phan to see patient today
- MRI results above
- resume diet and stop fluids
- pain management
2. Chronic management of hyperlipidemia, urinary retention and hypothyroid per outpatient regimen
DVT PPX - lovenox sq
Code Status - DNR
Anticipated Discharge: Within 24 hours
Subjective/Interval History
-
Date of Service: May 05, 2024
feeling well
wants to go home
Objective Data
-
Vital Signs:
Vital Signs
Temp Pulse Resp BP Pulse Ox
97.9 F 89 16 138/82 96
05/05/24 07:00 05/05/24 07:00 05/05/24 07:00 05/05/24 07:00 05/05/24 07:00
I&O
05/04/24 05/05/24 05/06/24
06:59 06:59 06:59
Intake Total 970 / 970 960 / 960
Output Total 110 / 110 65 / 65
Balance 860 / 860 895 / 895
Review of Systems
-
History Source: Patient
All other systems: Reviewed and negative
Physical Exam
-
General: No Apparent Distress
HEENT: PERRLA
Respiratory: Clear to Auscultation; Negative Wheezes
Cardiac: S1/S2
GI: Soft and Nontender
Musculoskeletal: No Edema and Other (left buttocks incision healing with ESTELA drain in place with serosanguinous output )
Neuro: AO x 3
Psych: Calm
Data Reviewed
-
Diagnostic Radiology: Report Reviewed by me
Labs: Labs Reviewed by me
--- NOTE | 2024-05-05 12:13 | CON.ID ---
Consultation
-
Date/Time Consultation Requested: 05/05/24 12:04
Date/Time Consultation Performed: 05/05/24 12:14
Requesting Provider: Dr Lucas
Performing Provider: Dr Estevez
Reason for Consultation: gluteal abscess
Chief Complaint / Past History
Chief Complaint
L hip/buttock swelling and pain
History of Present Illness
Ms Villa is an 84 year old female with history of bilateral frontal lobe CVA with residual bilateral weakenss (L>right), urinary retention. Over the course of her hospitaliation for the stroke she developed a sacral pressure ulcer. Happily she is
now ambulatory. She was following with wound care and was referred for primary flap closure. She was seen in the plastic surgery office for evaluation and the wound did not appear to be infected. On 04/07 she was admitted here for flap closure.
She underwent excision of the wound bed to prep the sacrum, the wound bed was 12 x 11 cm and went down to the sacrum without necrotic of grossly infected bone. She underwent advancement fasciocutaneous flap from the gluteus yelitza muscle which was
the planned procedure. Drain was placed after the flap was raised and set deeply to the dermis. Then underwent adjacent tissue transfer trunk. OR culture was obtained for aerobic growth and was finalized negative. She was discharged with wound
care instructions with timi
She has been following with plastic surgery outpatient and last 04/29 she had drain removal. She remained well until 05/02, 3 days ago, when she noted redness, warmth, swelling and pain around the surgical site. Denies: fever, chills,
anorexia, nausea, vomiting, drainage. This visit 05/03 MRI done: 'large rim-enhancing enhancing complex loculated fluid collection in the subcutaneous fat posterior to the left iliac bone and left gluteus minimus muscle. The large collection measures
3.7 x 17.1 x 8.7 cm in AP, transverse, and craniocaudal dimensions and is surrounded by a large amount of enhancing subcutaneous edema consistent with severe cellulitis'...'no MRI evidence for cortical destruction, abnormal periosteal reaction, or
bone marrow signal abnormality to suggest acute osteomyelitis. There is a mild amount of acute enhancing edema in the left gluteus medius muscle consistent with mild myositis' On 05/03 she underwent drain placement in to the collection and 110 mL of
purulent bloody fluid was aspirated. Wound cultures have resulted with MSSA. Anaerobic cultures were not done. She was started on vancomycin and unasyn initially and has been transitioned to augmentin. Drain output remains 40 ccs already today,
45 yesterday, 90 the day previous. Plastic surgery is aware of the admission and planning to see the patient today. ID has been asked to comment on length of therapy.
Past History
Additional Past Medical History:
CVA, HTN, Hypercholesterolemia and Hypothyroidism
Additional Past Surgical History:
reconstruction as above
Allergy History:
chocolate Allergy (Verified 05/02/24 18:38)
MOUTH SORES
lisinopril [From Prinivil] Allergy (Verified 05/02/24 18:38)
coughing
Medications Reviewed: Yes
Social History
Tobacco: Non-Smoker
Alcohol: None
Drug: None
Family History
Family History: Not Pertinent
Review of Systems
Review of Systems
General: Negative Fever or Chills
All systems: All other systems were reviewed and were negative
Vital Signs
Temp Pulse Resp BP Pulse Ox
97.9 F 89 16 138/82 96
05/05/24 07:00 05/05/24 07:00 05/05/24 07:00 05/05/24 07:00 05/05/24 07:00
Physical Exam
Physical Exam
Constitutional: No Acute Distress
Cardiovascular: Regular Rate and S1/S2; Negative Murmur or Rub
Pulmonary: Clear and Symmetric; Negative Wheezes, Rales or Rhonchi
Gastrointestinal: Soft, Non Tender, Non Distended and Normal Bowel Sounds
Skin: Warm and Dry; Negative Rash or Jaundice
Wound: Other (surgical site fully healed without dehiscence, no erythema, warmth or fluctuance, there is moderate tederness along the lateral buttocks; drain with serosanguious fluid)
Lab / Diagnostic Study Results
05/03/24 07:26
05/03/24 07:26
Abs Immat Gran (auto) 0.1 10^3/uL (0-0.05) H 05/02/24 19:11
Absolute Neuts (auto) 7.3 10^3/uL (1.4-6.5) H 05/02/24 19:11
Absolute Lymphs (auto) 1.2 10^3/uL (1.2-3.4) 05/02/24 19:11
Absolute Monos (auto) 0.7 10^3/uL (0.1-0.6) H 05/02/24 19:11
Absolute Basos (auto) 0.0 10^3/uL (0-0.2) 05/02/24 19:11
Immature Gran % 0.5 % (0-0.5) 05/02/24 19:11
Neutrophils % 76.7 % (42.2-75.2) H 05/02/24 19:11
Lymphocytes % 12.7 % (20.5-51.1) L 05/02/24 19:11
Monocytes % 7.6 % (1.7-9.3) 05/02/24 19:11
Eosinophils % 2.1 % (0-6) 05/02/24 19:11
Basophils % 0.4 % (0-2) 05/02/24 19:11
ESR 50 mm/hour (0-20) H 05/03/24 07:26
Lactic Acid Cancelled 05/02/24 23:15
C-Reactive Protein 158.20 mg/L (0.0-10.00) H 05/03/24 07:26
Microbiology Results
Micro:
05/02/24 19:19 Wound Culture - Final
Abscess S aureus-Methicillin Sensitive
Gram Stain - Final
05/03/24 09:35 Wound Culture - Final
Abscess S aureus-Methicillin Sensitive
Gram Stain - Final
05/02/24 23:57 MRSA Screen - Final
Nose No Methicillin Resistant Staphylococcus aureus isolated.
Wound/abscess/other Cult Final 05/05/24-1041
Many S aureus-Methicillin Sensitive
Organism 1 S aureus-Methicillin Sensitive
1. S aureus-Methicillin Sensitive
M.I.C. RX
--------- ---
Amoxicillin/Potas. Clavulanate <=4/2 S
Ampicillin 4 R
Clindamycin <=0.5 S
Gentamicin <=4 S
Erythromycin <=0.5 S
Levofloxacin <=1 S
Oxacillin <=0.25 S
Tetracycline <=4 S
Trimethoprim/Sulfamethoxazole <=0.5/9.5 S
Vancomycin 1 S
Assessment / Plan
Surgical Site Infection
Large Abscess - cultures with MSSA
S/p advancement fasciocutaneous flap from the gluteus yelitza muscle and adjacent tissue transfer trunk
- 05/03 MRI without definite evidence of acute osteomyelitis, I do note that when wound bed was prepped it was down to the level of bone but did not appear infected in the OR, 04/07 OR culture was negative
- abscess from 05/02 was quite large 3.7 x 17.1 x 8.7 cm; s/p drain placement which continues with a high amount of fluid output
- baseline ESR 50, CRP 158
- my recommendation would be at least four weeks of bactrim 1 DS tab BID and metronidazole 500 mg PO BID both likely for 6 weeks; I will reassess patient around four weeks with CBC, BMP, ESR and CRP before the visit
- drain management per plastic surgery
Care Review
Plan reviewed with: Physician (Dr Lucas - Dr Phan)
[2024-05-05] MEDS: ProAmatine PO (13:28)
[2024-05-05] MEDS: FLOMAX 0.4 MG PO (13:30)
[2024-05-05] MEDS: FLAGYL 500 MG PO (13:30)
--- NOTE | 2024-05-05 13:35 | W.DS.TRANS ---
DC Summary - School Secretary
-
Discharge Instructions:
Discharge Diagnosis/Procedures left gluteal abscess growing MSSA
Diet Regular
Activity As tolerated
Driving Restrictions As prior to admission
Bathing Restrictions None
Blood Work BMP (to monitor kidney function and electrolytes
) will be ordered by Dr. Estevez
Instructions:
Stand-Alone Forms:
Changes to Home Medications: Yes
Discharge Medications:
DC Medications w/original date entered in [facility]
fluticasone propionate 50 mcg/actuation nasal spray,suspension 2 spray intranasal PRN PRN allergies 12/06/23
acetaminophen 325 mg tablet 650 mg (2 x 325 mg) PO Q4HPRN PRN MILD PAIN 30 days #100 tabs 01/06/24
ascorbic acid (vitamin C) 500 mg tablet (Vitamin C) 500 mg PO DAILY supplement 30 days #30 tabs 01/06/24
aspirin 81 mg chewable tablet (Children's Aspirin) 81 mg PO DAILY CVA #0 tabs 01/06/24
atorvastatin 10 mg tablet 10 mg PO DAILY cholesterol 30 days #30 tabs 01/06/24
ferrous sulfate 325 mg (65 mg iron) tablet (FeroSul) 325 mg PO DAILY Supplement 30 days #30 tabs 01/06/24
levothyroxine 50 mcg tablet 50 mcg PO MoTuWeThFrSa@0600 hypothyroidism 30 days #30 tabs 01/06/24
magnesium oxide 500 mg PO DAILY Supplement 30 days #30 tabs 01/06/24
metoprolol tartrate 25 mg tablet 12.5 mg (1/2 x 25 mg) PO DAILY Heart disease/condition 30 days #15 tabs 01/06/24
midodrine 5 mg tablet 2.5 mg (1/2 x 5 mg) PO BID@0700,1200 hypotension 30 days #60 tabs 01/06/24
multivitamin with folic acid 400 mcg tablet (Tab-A-Lizzy) 1 tab PO DAILY Supplement 30 days #30 tabs 01/06/24
tamsulosin 0.4 mg capsule 0.4 mg PO .1PM Urinary Hesitancy 04/01/24
tramadol 50 mg tablet 50 mg PO Q6HPRN PRN moderate pain 5 days #20 tabs 04/08/24
metronidazole 500 mg tablet 500 mg PO Q12H #84 tabs 05/05/24
sulfamethoxazole 800 mg-trimethoprim 160 mg tablet 1 tab PO BID #84 tabs 05/05/24
Home Medication Changes
6 week course of Bactrim and Flagyl
Pending Results: No
--- NOTE | 2024-05-05 13:35 | W.DCSUMMARY ---
Discharge Summary
Discharge Data
Date of Admission: 05/02/24
Date of Discharge: 05/05/24
-
Pending Results: No
Hospital Course
Discharging Physician : Dr. Audrey Lucas
Disposition : Home
Primary care physician : Dr. Yvette Moreira
Principal Discharge diagnosis : Left Gluteal Abscess
Hospital Course :
Ms. Velia Villa is a 84 yo woman with hx bilateral CVA with residual weakness L > R, HTN, HLD, stage IV sacral pressure wound s/p debridement and wound bed prep with flap reconstruction 04/07/24 with prolonged ESTELA drain presents to the ER with left
sided buttocks pain. Upon arrival patient was afebrile, BP 115/67. Labs with WBC 9.6. CT showed a large walled off fluid collection in deep tissues of the left buttocks overlying the sacrum.
She was admitted to medicine with IR and Plastic Surgery consulting, s/p ESTELA drain placement on 05/03. MRI Pelvis without osteomyelitis. Cultures growing MSSA. She was maintained on IV Unasyn. ID consulted and recommend 6 week oral therapy with
Bactrim and Flagyl. She will follow up with Dr. Phan for drain management and with Dr. Estevez for antibiotic management who will also monitor labs.
Time spent on discharge was 40 minutes.
Important imaging findings :
Pelvis CT
IMPRESSION:
1. Fluid collection within the soft tissues of the superior left buttock, measuring 20.9 x 5.7 x 3.5 cm, with wall enhancement and adjacent fat stranding. Findings are most suggestive of abscess or infected hematoma.
2. The fluid collection extends to the left iliac bone and left sacrum, however there is no CT evidence of osteomyelitis. MRI may be more sensitive if clinical concern is high.
3. Left ovarian cyst measures 2.8 cm in diameter. Consider topical ultrasound for further characterization.
4. Calcified uterine fibroids.
MRI Pelvis
IMPRESSION:
1. LARGE 17.1 cm RIM-ENHANCING ABSCESS in the subcutaneous fat POSTERIOR to the LEFT ILIAC BONE and left gluteus minimus muscle surrounded by SEVERE ENHANCING CELLULITIS.
2. Mild myositis in the left gluteus medius muscle.
3. No MRI evidence for acute osteomyelitis.
4. Multiple uterine leiomyoma.
5. Severe diverticulosis in the sigmoid colon.
6. 2.7 cm left ovarian cyst.
7. Small amount of peritoneal fluid in the pelvis.
Procedure findings :
Discharge Plan
-
Patient Disposition: Home (Routine Discharge)
Discharge Diagnosis/Procedures: left gluteal abscess growing MSSA
Diet: Regular
Activity: As tolerated
Driving Restrictions: As prior to admission
Bathing Restrictions: None
Blood Work: BMP (to monitor kidney function and electrolytes) will be ordered by Dr. Estevez
Referrals:
Yvette Marie, [Family Provider] - in less than 1 week
Phi Phan MD [Active] - in one week
Adele Estevez MD [Active] - in three to four weeks
Additional Discharge Medication Instructions: You are prescribed 6 weeks of Flagyl and Bactrim Therapy per Dr. Estevez' recommendations.
You may buy probiotics over the counter to take with prolonged antibiotic therapy.
Drain management per Dr. Phan.
Prescriptions:
New
metronidazole 500 mg Tablet
500 mg PO Q12H Qty: 84 0RF
sulfamethoxazole-trimethoprim 800-160 mg Tablet
1 tab PO BID Qty: 84 0RF
Continued
fluticasone propionate 50 mcg/actuation spray,suspension
2 spray INTRANASAL PRN PRN (Reason: allergies)
tamsulosin 0.4 mg capsule
0.4 mg PO .1PM
tramadol 50 mg Tablet
50 mg PO Q6HPRN PRN (Reason: moderate pain) 5 Days Qty: 20 0RF
midodrine 5 mg Tablet
2.5 mg PO BID@0700,1200 30 Days Qty: 60 0RF
ferrous sulfate [FeroSul] 325 mg (65 mg iron) Tablet
325 mg PO DAILY 30 Days Qty: 30 0RF
magnesium oxide 500 mg magnesium Tablet
500 mg PO DAILY 30 Days Qty: 30 0RF
acetaminophen 325 mg Tablet
650 mg PO Q4HPRN PRN (Reason: MILD PAIN) 30 Days Qty: 100 0RF
ascorbic acid (vitamin C) [Vitamin C] 500 mg Tablet
500 mg PO DAILY 30 Days Qty: 30 0RF
metoprolol tartrate 25 mg Tablet
12.5 mg PO DAILY 30 Days Qty: 15 0RF
multivitamin with folic acid [Tab-A-Lizzy] 400 mcg Tablet
1 tab PO DAILY 30 Days Qty: 30 0RF
atorvastatin 10 mg Tablet
10 mg PO DAILY 30 Days Qty: 30 0RF
levothyroxine 50 mcg Tablet
50 mcg PO MoTuWeThFrSa@0600 30 Days Qty: 30 0RF
aspirin [Children's Aspirin] 81 mg Tablet,Chewable
81 mg PO DAILY Qty: 0 0RF
Discharge Orders:
Discharge Patient (As Directed); Ordered 05/05/24
Ordered By: Audrey Lucas
Discharge Date and Time
Print Language: TURKMEN
[2024-05-05 15:00] VITALS: BP 140/83
--- NOTE | 2024-05-05 17:12 | CON.PS ---
Medical History
Allergies / Home Medications
Allergy/AdvReac Type Severity Reaction Status Date / Time
chocolate Allergy MOUTH SORES Verified 05/02/24 18:38
lisinopril [From Prinivil] Allergy coughing Verified 05/02/24 18:38
�Medication �Instructions �Recorded �Confirmed �Type
fluticasone propionate 50 2 spray intranasal PRN PRN 12/06/23 05/03/24 History
mcg/actuation nasal allergies
spray,suspension
acetaminophen 325 mg tablet 650 mg (2 x 325 mg) PO Q4HPRN PRN 01/06/24 05/03/24 Rx
MILD PAIN 30 days #100 tabs
ascorbic acid (vitamin C) 500 mg 500 mg PO DAILY supplement 30 days 01/06/24 05/03/24 Rx
tablet (Vitamin C) #30 tabs
aspirin 81 mg chewable tablet 81 mg PO DAILY CVA #0 tabs 01/06/24 05/03/24 Rx
(Children's Aspirin)
atorvastatin 10 mg tablet 10 mg PO DAILY cholesterol 30 days 01/06/24 05/03/24 Rx
#30 tabs
ferrous sulfate 325 mg (65 mg 325 mg PO DAILY Supplement 30 days 01/06/24 05/03/24 Rx
iron) tablet (FeroSul) #30 tabs
levothyroxine 50 mcg tablet 50 mcg PO MoTuWeThFrSa@0600 01/06/24 05/03/24 Rx
hypothyroidism 30 days #30 tabs
magnesium oxide 500 mg PO DAILY Supplement 30 days 01/06/24 05/03/24 Rx
#30 tabs
metoprolol tartrate 25 mg tablet 12.5 mg (1/2 x 25 mg) PO DAILY 01/06/24 05/03/24 Rx
Heart disease/condition 30 days
#15 tabs
midodrine 5 mg tablet 2.5 mg (1/2 x 5 mg) PO 01/06/24 05/03/24 Rx
BID@0700,1200 hypotension 30 days
#60 tabs
multivitamin with folic acid 400 1 tab PO DAILY Supplement 30 days 01/06/24 05/03/24 Rx
mcg tablet (Tab-A-Lizzy) #30 tabs
tamsulosin 0.4 mg capsule 0.4 mg PO .1PM Urinary Hesitancy 04/01/24 05/03/24 History
tramadol 50 mg tablet 50 mg PO Q6HPRN PRN moderate pain 04/08/24 05/03/24 Rx
5 days #20 tabs
metronidazole 500 mg tablet 500 mg PO Q12H #84 tabs 05/05/24 Rx
sulfamethoxazole 800 1 tab PO BID #84 tabs 05/05/24 Rx
mg-trimethoprim 160 mg tablet
Physical Exam
Vital Signs
Temp 97.9 F 05/05/24 15:00
Temp route: Oral 05/05/24 15:00
Pulse 84 05/05/24 15:00
Resp Rate 18 05/05/24 15:00
Blood pressure 140/83 05/05/24 15:00
Blood pressure extremity used: Right upper arm 05/05/24 15:00
Position: Lying 05/05/24 15:00
MAP (cuff-Yolette Monitor) 78 05/03/24 12:05
SaO2 96 05/05/24 15:00
Oxygen Mode of Delivery Room air 05/05/24 15:00
Can the patient verbally communicate their pain? Yes 05/05/24 08:00
Pain scale ratin 05/05/24 08:00
Actual Weight 149 lb 14.629 oz 05/03/24 04:35
Body Mass Index (BMI) 25.8 05/03/24 04:35
etC02 value 12 05/03/24 12:05
Lab Results
05/03/24 07:26
05/03/24 07:26
== END 2024-05-05 17:31 | disposition home health service (06) | DRG 603 ==
LOC: 4 WEST ACU 21:58
PROVIDERS: Radiology Vascular & Interventional Radiology; ADMITTING PHYSICIAN Internal Medicine; ATTENDING PHYSICIAN Student in an Organized Health Care Education/Training Program; CONSULT PHYSICIAN Student in an Organized Health Care Education/Training Program; CONSULT PHYSICIAN Surgery Plastic and Reconstructive Surgery; EMERGENCY PHYSICIAN Emergency Medicine; FAMILY PHYSICIAN Family Medicine
PROC: 0J9930Z Drainage of Buttock Subcutaneous Tissue and Fascia with Drainage Device, Percutaneous Approach (ICD-10-PCS; 2024-05-03)
DX: L02.31 Cutaneous abscess of buttock (principal); M60.08 Infective myositis, other site; I69.351 Hemiplegia and hemiparesis following cerebral infarction affecting right dominant side; I69.354 Hemiplegia and hemiparesis following cerebral infarction affecting left non-dominant side; L03.317 Cellulitis of buttock; E03.9 Hypothyroidism, unspecified; I10 Essential (primary) hypertension; Z66 Do not resuscitate; I69.398 Other sequelae of cerebral infarction; R33.8 Other retention of urine; B95.61 Methicillin susceptible Staphylococcus aureus infection as the cause of diseases classified elsewhere; D25.9 Leiomyoma of uterus, unspecified; E78.00 Pure hypercholesterolemia, unspecified; K57.30 Diverticulosis of large intestine without perforation or abscess without bleeding; N83.202 Unspecified ovarian cyst, left side; Z79.82 Long term (current) use of aspirin; Z79.890 Hormone replacement therapy; Z79.899 Other long term (current) drug therapy; Z85.828 Personal history of other malignant neoplasm of skin; Z88.8 Allergy status to other drugs, medicaments and biological substances
CPT/HCPCS: 10030; 72193; 72197; 80048; 80053; 82550; 83605; 85025; 85027; 85652; 86140; 87070; 87147; 87186; 87205; 96365; 97162; 97166; 99152; 99153; 99285; A9575; C1729; C1769; Q9967

== ENCOUNTER 2024-07-26 14:12 | Outpatient (RCR) | payer OTHER, SELFPAY | END 2024-07-26 23:59 | disposition home or self-care (01) | LOC: RPT 14:12 | PROVIDERS: ATTENDING PHYSICIAN Family Medicine | DX: I69.354 Hemiplegia and hemiparesis following cerebral infarction affecting left non-dominant side (principal); I69.351 Hemiplegia and hemiparesis following cerebral infarction affecting right dominant side; Z73.6 Limitation of activities due to disability | CPT/HCPCS: 97110; 97112; 97116; 97163; 97167; 97530; 97535 ==

== ENCOUNTER 2024-08-30 13:50 | Outpatient (RCR) | payer OTHER, SELFPAY | END 2024-08-30 23:59 | disposition home or self-care (01) | LOC: RPT 13:50 | PROVIDERS: ATTENDING PHYSICIAN Family Medicine | DX: I69.354 Hemiplegia and hemiparesis following cerebral infarction affecting left non-dominant side (principal); I69.351 Hemiplegia and hemiparesis following cerebral infarction affecting right dominant side; Z73.6 Limitation of activities due to disability | CPT/HCPCS: 97110; 97112; 97116; 97530; 97535 ==

== ENCOUNTER 2024-09-08 09:42 | Outpatient (RCR) | payer OTHER, SELFPAY | END 2024-09-16 10:15 | disposition home or self-care (01) | LOC: RPT 09:42 | PROVIDERS: ATTENDING PHYSICIAN Family Medicine | DX: I69.354 Hemiplegia and hemiparesis following cerebral infarction affecting left non-dominant side (principal); I69.351 Hemiplegia and hemiparesis following cerebral infarction affecting right dominant side; Z73.6 Limitation of activities due to disability | CPT/HCPCS: 97110; 97112; 97530; 97535 ==

== ENCOUNTER 2024-10-08 07:15 | Day surgery (SDC) | payer OTHER, SELFPAY ==
[2024-10-08 08:29] VITALS: BMI 27.0
--- NOTE | 2024-10-08 11:40 | ITS.CL.IMPLP ---
[employer] - Implant Loop
Implant Loop
Procedure Report:
Primary Physician: Yvette Marie DO
Procedure Date: 10/08/2024
Procedure: Placement of a loop recorder.
History/Indication:
1. See office H&P for complete history.
2. Patient is a very pleasant 84-year-old female with a past medical history significant for hypertension, mixed dyslipidemia, CKD 3B, hypothyroidism, prior sacral decub ulceration, asymptomatic paroxysmal AT, aortic atherosclerosis, and history of
CVA. CVA without clear source, concern for cardioembolic etiology. No prior arrhythmias identified on outpatient monitor. Patient undergo ILR implant for CVA, longitudinal surveillance of arrhythmia.
Method:
After informed consent was obtained, the patient was brought to the EP laboratory holding area in a fasting, non-sedated state. Peripheral access was established. The left chest was prepared and draped in a sterile fashion. A 'time out' was
called. Local anesthesia was injected in the subcutaneous tissue. The ILR was injected under the skin. Topical skin adhesive was applied. Following the procedure, the patient was taken to the recovery area in stable condition. No complications
were noted.
Device Data:
[employer]tronic; Model# [id number]; Serial# [id number]
Conclusion:
Successful placement of a loop recorder.
Recommendations:
1. Follow-up will be arranged in the [facility] in 7-10 days for wound check.
2. Routine ILR care.
Tip Murray DO
Clinical Cardiac Baseball Glove Stuffer
cc: Yvette Marie DO
== END 2024-10-08 12:20 | disposition home or self-care (01) ==
LOC: CATH 07:15
PROVIDERS: ATTENDING PHYSICIAN Internal Medicine Cardiovascular Disease; FAMILY PHYSICIAN Family Medicine; OTHER PHYSICIAN Internal Medicine Cardiovascular Disease
DX: Z09 Encounter for follow-up examination after completed treatment for conditions other than malignant neoplasm (principal); N18.32 Chronic kidney disease, stage 3b; I12.9 Hypertensive chronic kidney disease with stage 1 through stage 4 chronic kidney disease, or unspecified chronic kidney disease; E78.2 Mixed hyperlipidemia; E03.9 Hypothyroidism, unspecified; Z86.73 Personal history of transient ischemic attack (TIA), and cerebral infarction without residual deficits; Z79.82 Long term (current) use of aspirin; Z79.899 Other long term (current) drug therapy; I70.0 Atherosclerosis of aorta; I08.3 Combined rheumatic disorders of mitral, aortic and tricuspid valves; I37.1 Nonrheumatic pulmonary valve insufficiency
CPT/HCPCS: 33285; 93312; 93320; 93325; C1764

== ENCOUNTER 2024-11-09 12:27 | Inpatient (IN) | payer OTHER, SELFPAY ==
[2024-11-09] VITALS (46 sets, daily range): BP systolic 101–186; BP diastolic 50–144; BMI 24.5
--- NOTE | 2024-11-09 11:12 | ED.CVA ---
History of Present Illness
General
Chief Complaint: CVA/TIA Symptoms
Source: patient and ambulance crew
Exam Limitations: clinical condition
Time Seen by Provider: 11/09/24 11:09
Nursing documentation reviewed up to this point in time: agreed with
Onset of Stroke Symptoms
Onset of symptoms known: Yes
Date of onset of symptoms: 11/09/24
History of Present Illness
History of Present Illness:
84-year-old female presents emergency department due to a syncope episode, left-sided weakness. Prehospital stroke alert called.
Past History
Past History
ED Past Medical History: Cancer (Skin cancer), CVA, HTN, Hypercholesterolemia and Other (Migraines)
ED Past Surgical History: Other (Rectal tumor removed, sacral wound debridement and closure)
Social History
Tobacco: Non-smoker
Alcohol: None
Drug: None
Personal: Single
Living: alone
Employment: Employed
Family History
Family History: Other (Noncontributory)
Review of Systems
Review of Systems
Allergies reviewed?: Yes
Unable to obtain full review of systems at this time due to: non-verbal
All Other Systems: Not applicable
Cardiac: Reports syncope
Neurological: Reports weakness
Phy Exam
Physical Exam
Physical Exam:
Physical Exam
General: Moderate distress
Neck: supple. no meningeal signs. normal posterior pharynx
Heart: s1/s2 regular rate and rhythm, no murmur. equal radial
pulses.
HEENT: Pupils equal round reactive to light, EOMI
Lungs: no acute respiratory distress. clear bilaterally
Abdomen: normal bowel sounds. not tender. no CVAT
Neuro: alert but not answering questions, left sided twitching and weakness, unable to lift left arm or leg against gravity
Skin: no rash
Psychiatric: Not answering questions
Extremities: no edema. no calf tenderness. negative homans. good distal pulses
NIH Stroke Score
Level of Consciousness: 0 - Alert
LOC questions: 2-Neither correct
LOC Commands: 0-Performs both correctly
Best Gaze: 1-Partial gaze palsy
Visual Rangel: 0=Normal, no visual loss
Facial palsy: 0=Normal, symmetrical
Motor - Right Arm: 0=No drift 10 seconds
Motor - Left Arm: 3=None vs. gravity
Motor - Right Le-No drift 5 seconds
Motor - Left Le-None vs. gravity
Limb Ataxia: 0-Absent
Sensation: 0-Normal
Best Language: 3-Mute/global aphasia
Dysarthria: 0-Normal
Extinction and Inattention: 1-Sensory inattention
Total Score:: 13
Course
Orders/Labs/Results
Orders:
Orders
11/09/24 11:10
Electrocardiogram (*1) Stat
Reason for Study: Other
Other Reason for Exam: neuro symptoms
CT HEAD STROKE ALERT W/o Cont Urgent
Comment:
Reason For Exam: left side paralysis [address] HEAD/NECK ANG STROKE ALERT Urgent
Comment:
Reason For Exam: left side paralysis 1 hour ago
Cardiac Monitoring- Treatment ONCE
EKG- Treatment ONCE
11/09/24 11:11
IV Insert/Care/Rem.- Treatment PRN
11/09/24 11:22
Tenecteplase [Tnkase] 16 mg Syringe [Syringe Non-Pump] 0 ml IV NOW
Provider explained risk/benefits to patient &/or caregiver?: Yes
11/09/24 11:32
Complete Blood Count/With Diff Urgent
Comprehensive Metabolic Panel Urgent
PTT Urgent
Prothrombin Time Urgent
Troponin I Urgent
11/09/24 11:50
Admit/Transfer Patient As Directed
Co-Sign Provider:
Level of Care: Inpatient admission
Assign to:: ICU
Physician / Group: Dr. Valente
Diagnosis: Acute stroke
Reason for Hospitalization: Stroke
Expected length of stay greater than two midnights?: Yes
ELOS- Estimated Length of Stay in days: 2
I certify the patient meets the requirements for IP care: Yes
PRN Pain Medication Management As Directed
May give lesser potent ordered pain med per pt: Yes
preference::
Protocol:: Medication orders for pain may be administered in a
manner that supports deferring to patient preference
when the pt is:
- Requesting an ordered lesser potent pain medication.
Least to most potent pain medications are defined
as: acetaminophen < NSAID < tramadol < opioids
(morphine, oxycodone, hydromorphone).
- Requesting a lesser dose of the same medication IF
ORDERED.
- Requesting a less intrusive route of administration
if both routes are prescribed by the provider (PO <
IV).
11/09/24 11:51
Code Status As Directed
Resuscitation Status: Full Code
11/09/24 12:00
Levetiracetam Injectable [Keppra] 1,000 mg .ROUTE .STK-MED ONE
Lorazepam [Ativan] 2 mg .ROUTE .STK-MED ONE
11/09/24 12:03
Levetiracetam Injectable [Keppra] 1,000 mg IV NOW STA
11/09/24 12:07
CT Head W/o Iv Contrast Urgent
Comment:
Reason For Exam: seizure post tnk
Levetiracetam Injectable [Keppra] 1,000 mg IV NOW STA
11/09/24 12:10
Diltiazem 125 mg/125 ml Nss [Cardizem] 125 mg in 125 ml IV NOW
Initial dose in mg/hr, then titrate:: 5
Titrate to keep:: Heart rate 80-100 bpm
Titrate by mg/hr:: 5 mg/hr
Frequency of titrations (minutes):: 15
Maximum dose in mg/hr:: 15
Diltiazem HCl [Cardizem] 5 mg IV NOW STA
11/09/24 12:14
CARDIOLOGY CONSULT Routine
Consulting Provider: Abram Smith
Was physician already notified: Yes
Reason for consult: A Fib RVR eval in the setting of stroke and just had TNK
11/09/24 13:58
Acetaminophen [Tylenol] 650 mg PO Q4HPRN PRN
11/09/24 13:58
Electrocardiogram (*1) Routine
Reason for Study: TIA/Stroke
Case Management Consult Once
Case Management Consult: Discharge Planning
DIETARY CONSULT Routine
Reason for Consult: stroke/TIA
Precision Lens Grinder Consult Routine
Consulting Provider: Milo Tanner
Was physician already notified: Yes
Reason for consult: CVA
NEUROLOGY CONSULT Urgent
Consulting Provider: Thor Haynes
Was physician already notified: Yes
Syrup Shed Supervisor Urgent
Notify MD As Directed
Notify physician if: - Any deterioration, change in neurological status, development of severe headache,
nausea and vomiting, or with any signs of bleeding. (see guidelines for suspected
intracerebral hemorrhage).
- If intracranial hemorrhage is suspected or confirmed by imaging, anticipate need for
osmotic diuretic to maintain euvolemia.
Notify MD As Directed
Notify physician if: Glucose less than 70 or greater than 180.
Anticipate corrective insulin orders.
Notify MD As Directed
Notify physician if: unable to obtain MRI of head within 22-32 hours of tenecteplase administration and/or IAT
- contact Neurology for order for CT of head without contrast
Patient Education As Directed
Type: Stroke education packet
Comment: provide to patient and family
Pneumatic Compression Sleeves As Directed
Type: Knee high
Precautions As Directed
Type of Precautions: Bleeding
Comment: post Bleeding Precaution sign at bedside (if patient received tenecteplase)
Thrombolytic Precautions As Directed
Thrombolytic Precautions:: [place] bleeding precautions. Minimize invasive procedures and venipunctures,
avoid IM injections and over-handling patient, and check all puncture sites for
bleeding. Assess the patient and notify provider for signs and symptoms of
internal or serious bleeding, such as changes in vital signs or evidence of blood
in the urine or stool.
Additional instructions: Hemocult all stools.
Apply direct pressure or pressure dressing to any compressible puncture sites.
No ABG sampling or Maldonado insertion after Tenecteplase administration for 24 hours,
unless directed by the Neurologist/Attending.
DX Deep Vein Thrombosis Video Routine
11/09/24 Dinner
NPO
Allow oral meds: No
Allow clear liquids: No
Abnormal Lab Results
11/09/24
11:32
Plt Count 124 L 10^3/uL
(130-400)
Absolute Lymphs (auto) 0.7 L 10^3/uL
(1.2-3.4)
Immature Gran % 0.7 H %
(0-0.5)
Neutrophils % 79.0 H %
(42.2-75.2)
Lymphocytes % 12.6 L %
(20.5-51.1)
PT 14.7 H Sec
(11.4-14.6)
BUN 22 H mg/dl
(7-17)
Glucose 167 H mg/dl
(70-99)
Total Protein 5.9 L g/dl
(6.3-8.2)
Albumin 3.4 L g/dl
(3.5-5.0)
11/09/24 11:32
11/09/24 11:32
Vital Signs
Initial and Last Documented VS:
Initial Vital Signs
Temp Pulse Resp BP Pulse Ox
97.5 F 85 11 169/74 94
11/09/24 11:09 11/09/24 11:09 11/09/24 11:09 11/09/24 11:09 11/09/24 11:09
Last Documented Vital Signs
Temp Pulse Resp BP Pulse Ox
97.5 F 88 14 116/50 98
11/09/24 15:53 11/09/24 15:15 11/09/24 15:15 11/09/24 15:15 11/09/24 15:16
MDM/Problems Addressed
Differential Diagnosis Includes:
CVA, seizure
MDM/Problems Addressed:
84-year-old female with acute CVA, intracranial hemorrhage and seizure. Intracranial hemorrhage occurred after being administered TNK. Cussed with family, who would like to pursue comfort care. At this time patient will be monitored further in
ICU.
Chronic conditions affecting care: HTN
Acute Exacerbation and/or Progression of Chronic Illness: HTN
*Radiology
Radiology exam reviewed: radiology read reviewed (CT head and CT neck angiography initially no acute findings, repeat CT shows levi hemorrhage)
*Pulse Oximetry
Patient hypoxic: no
*EKG
Interpreted by ED Provider?: Yes
EKG Intrepretation Date: 11/09/24
EKG Intrepretation Time: 11:57
Interpretation: abnormal
Comparison EKG: changes noted
Heart Rate: 165
Rate: tachycardiac
Rhythm: a-fib
[place]: normal axis
Interval: normal interval
QRS Pattern: normal QRS
Ischemia: no ischemia
*Flour Broker Interpretation
Rate: tachycardiac
Interpretation: abnormal
Heart Rate: 155
Rhythm: a-fib
*Critical Care Note
Total Time (30-74mins, 75-104mins- exclusive of procedures): 45
comment:
Critical care statement: A total of 45 minutes of critical care time was provided for this patient. This includes management of unstable vital signs, evaluation of the patient at bedside, reviewing the patient's pertinent medical records, discussion
with consultants, review of old EKGs and review of pertinent medical records. This time with separate from time utilized to perform the aforementioned documented procedures
Patient Management
Social determinants of health affecting care: Living situation and Strong social support
Discussion with other providers: Hospitalist and Boot Maker (Neurology)
Escalation/DeEscalation of care consider admission/obs:
Admit indicated
ED Attending Note
-
Portions of this chart may have been created with voice recognition software.� Occasional wrong word or��sound alike� substitutions may have occurred due to the inherent limitations of voice recognition software.
Discharge Plan
Departure
Patient Disposition: Admit
Date of Disposition: 11/09/24
Time of Disposition: 12:08
Admit to: Med/Surg
Presentation/result/management discussed w/ accepting MD/DO: Hospitalist
Patient with high blood pressure during this ER visit?: Yes
Condition: Serious
Discharge Problem:
Acute cerebrovascular accident (CVA), Atrial fibrillation with rapid ventricular response
Interventions
Interventions:
*Risk Screen - Suicide Last Done: 11/09/24 14:35
*General Assessment Last Done: 11/09/24 11:10
*Neglect/Abuse Screening Last Done: 11/09/24 11:10
*ED- Fall Risk Assessment Last Done: 11/09/24 11:10
*ED COVID-19 Vaccine History Last Done: 11/09/24 14:35
*Nursing Disposition Last Done: 11/09/24 14:14
ED- Pulmonary Assessment Last Done: 11/09/24 11:10
ED- Neurological Assessment Last Done: 11/09/24 11:58
ED- Cardiac Assessment Last Done: 11/09/24 11:10
ED Swallowing Screen Last Done: 11/09/24 11:10
Discharge Date and Time
Discharge Date/Time: 11/09/24 14:15
--- NOTE | 2024-11-09 11:31 | CON.NEURO ---
Addendum entered and electronically signed by Thor Haynes MD 11/09/24 14:26:
Dr Tanner messaged me, patient got to ICU, unresponsive, blown pupils non reactive
Seen at bedside and agree
She certainly bled more, and this is no longer a survivable injury.
agree with transitioning to comfort measures when family arrives
Original Note:
Neuro Assessment/Plan
Assessment
Acute stroke right MCA on exam, NIHSS 19. Patient was a candidate for TNK, I spoke with her about the risks and benefits including risk of bleeding and doing worse.
Advised that treating with TNK is standard of care
Patient hypertensive, though less than 180/105. TNK administered.
simple partial seizure, multiple episodes, likely 2/2 stroke. patient given ativan 1 mg
subsequently patient unresponsive, stat head CT obtained, showing right levi hemorrhage. Based on her presenting symptoms of right MCA stroke, no possibility that this is a hemorrhagic conversion.
Levi would be typical location for hypertensive bleed, though her blood pressure was within parameters for giving TNK
Dr Valente and I spoke with the patient's nice Kortney who is next of kin; I showed her the imaging, advised tight blood pressure control, hemorrhagic strokes often can recover well; good change that she could recover from this.
Patient DNR/DNI, does not want any aggressive measures.
Plan
DNR/DNI
Admit ICU
MAP goal 70-[address] in AM
Consultation
Order
Date of Consultation: 11/09/24
Requesting Provider: Hao Kiser
Reason for Consult: stroke alert
Subjective/Objective
Subjective Data
Date of Service: November 09, 2024
Pre-hospital Stroke alert. symptoms began 10:30 am
84 year old woman, presents from home. sudden onset left side weakness, fall. EMS called and dispatched immediately. No blood thinners.
Seen in the ED, patient appeared left sided simple partial seizure in addition to the dense left hemiparesis, hemianopsia, and neglect.
Objective Data
Patient Allergies
chocolate Allergy (Verified 10/08/24 08:30)
MOUTH SORES
lisinopril [From Prinivil] Allergy (Verified 10/08/24 08:30)
coughing
CVA Assessment
Onset of Stroke Symptoms
Onset of symptoms known: Yes
Date of onset of symptoms: 11/09/24
Time of onset of symptoms: 10:30
NIH Stroke Score
Level of Consciousness: 0 - Alert
LOC Questions: 2-Neither correct
LOC Commands: 0-Performs both correctly
Best Horizontal Gaze: 2-Total gaze palsy
Visual Rangel: 2=Full hemianopia
Facial Palsy: 1=Minor paralysis
Motor - Right Arm: 0=No drift 10 seconds
Motor - Left Arm: 4=No movement
Motor - Right Le-No drift 5 seconds
Motor - Left Le-No movement
Limb Ataxia: 0-Absent
Sensation: 2-Severe loss
Best Language: 0-No aphasia
Dysarthria: 0-Normal
Extinction and Inattention: 2-Total susanne inattention
Total Score:: 19
Tenecteplase Contraindications
Inclusion and Exclusion criteria reviewed: Yes
Medications
-
Home Medications
�Medication �Instructions �Recorded
fluticasone propionate 50 2 spray intranasal PRN PRN 12/06/23
mcg/actuation nasal allergies
spray,suspension
acetaminophen 325 mg tablet 650 mg (2 x 325 mg) PO Q4HPRN PRN 01/06/24
MILD PAIN 30 days #100 tabs
ascorbic acid (vitamin C) 500 mg 500 mg PO DAILY supplement 30 days 01/06/24
tablet (Vitamin C) #30 tabs
aspirin 81 mg chewable tablet 81 mg PO DAILY CVA #0 tabs 01/06/24
(Children's Aspirin)
atorvastatin 10 mg tablet 10 mg PO DAILY cholesterol 30 days 01/06/24
#30 tabs
ferrous sulfate 325 mg (65 mg 325 mg PO DAILY Supplement 30 days 01/06/24
iron) tablet (FeroSul) #30 tabs
levothyroxine 50 mcg tablet 50 mcg PO MoTuWeThFrSa@0600 01/06/24
hypothyroidism 30 days #30 tabs
magnesium oxide 500 mg PO DAILY Supplement 30 days 01/06/24
#30 tabs
metoprolol tartrate 25 mg tablet 12.5 mg (1/2 x 25 mg) PO DAILY 01/06/24
Heart disease/condition 30 days
#15 tabs
midodrine 5 mg tablet 2.5 mg (1/2 x 5 mg) PO 01/06/24
BID@0700,1200 hypotension 30 days
#60 tabs
multivitamin with folic acid 400 1 tab PO DAILY Supplement 30 days 01/06/24
mcg tablet (Tab-A-Lizzy) #30 tabs
tamsulosin 0.4 mg capsule 0.4 mg PO .1PM Urinary Hesitancy 04/01/24
tramadol 50 mg tablet 50 mg PO Q6HPRN PRN moderate pain 04/08/24
5 days #20 tabs
[2024-11-09] MEDS: TNKASE 3.2 MG IV (11:36)
[2024-11-09 11:47] LABS: % Basophils 0.4 % (0-2); % Eosinophils 1.8 % (0-6); % Immature Granulocytes 0.7 % (0-0.5); % Lymphocytes 12.6 % (20.5-51.1); % Monocytes 5.5 % (1.7-9.3); Absolute Eosinophils 0.1 10^3/uL (0-0.7); Absolute Lymphocytes 0.7 10^3/uL (1.2-3.4); Absolute Monocytes 0.3 10^3/uL (0.1-0.6); Absolute Neutrophils 4.5 10^3/uL (1.4-6.5); Hematocrit 37.6 % (37.0-47.0); Hemoglobin 12.7 g/dL (12.0-16.0); Mean Corp Hgb Conc. 33.8 g/dL (33.0-37.0); Mean Corpuscular Hgb 27.4 pg (27.0-31.0); Mean Platelet Volume 9.7 fL (7.4-10.4); Nucleated Red Blood Cells % 0 %; Platelet Count 124 10^3/uL (130-400); Red Blood Cell Count 4.64 10^6/uL (4.20-5.40); Red Cell Dist. Width 13.2 % (11.5-14.5); White Blood Cell Count 5.7 10^3/uL (4.8-10.8)
[2024-11-09 11:54] LABS: INR 1.12; PT 14.7 Sec (11.4-14.6)
[2024-11-09 11:55] LABS: APTT 28.3 Sec (23.4-35.0)
--- NOTE | 2024-11-09 11:56 | HPS.HSE ---
Family Physician
-
Family Physician: NO INTERVIEW UNKNOWN
Chief Complaint
-
Left side weakness
History of Present Illness
Patient 84 years old female with history of CVA, hypertension, hyperlipidemia, orthostatic hypotension, hypothyroidism, CKD, migraines, presented to the hospital sudden onset of left-sided weakness. Patient LKN was 10:30 AM today and she had sudden
onset of left-sided weakness after going to the bathroom. Denies slurred speech. Remains alert. Denies chest pain or shortness of breath. Denies nausea vomiting fevers or chills. She was prehospital stroke alert. She is not taking any
anticoagulation. Neurology consulted in the ER and she was felt to be a candidate for TNK. By the time of my evaluation neurology evaluated the patient and in the process of administering TNKase. CT head and CTA of the head and neck done. She
was referred to hospitalist service for further evaluation.
Medical History
Past Medical History
Past Medical History: Reports CVA, HTN, Hypercholesterolemia and Hypothyroidism
Past Surgical History: Reports Other
Additional Past Surgical History:
debridement
Social History
Tobacco: Non-smoker
Alcohol: None
Drug: None
Personal: Single
Living: With Family
Employment: Retired
Family History
Family History: Not pertinent
Allergies / Home Medications
Allergies reflects when Allergies were last updated in [facility].
Home Medications with original date entered in [facility]
Allergy/Medication List:
Allergies
Allergy/AdvReac Type Severity Reaction Status Date / Time
chocolate Allergy MOUTH SORES Verified 10/08/24 08:30
lisinopril [From Prinivil] Allergy coughing Verified 10/08/24 08:30
Home Medications
fluticasone propionate 50 mcg/actuation nasal spray,suspension 2 spray intranasal DAILYPRN PRN allergies 12/06/23
acetaminophen 325 mg tablet 650 mg (2 x 325 mg) PO Q4HPRN PRN MILD PAIN 30 days #100 tabs 01/06/24
ascorbic acid (vitamin C) 500 mg tablet (Vitamin C) 500 mg PO DAILY supplement 30 days #30 tabs 01/06/24
aspirin 81 mg chewable tablet (Children's Aspirin) 81 mg PO DAILY CVA #0 tabs 01/06/24
atorvastatin 10 mg tablet 10 mg PO DAILY cholesterol 30 days #30 tabs 01/06/24
ferrous sulfate 325 mg (65 mg iron) tablet (FeroSul) 325 mg PO DAILY Supplement 30 days #30 tabs 01/06/24
levothyroxine 50 mcg tablet 50 mcg PO MoTuWeThFrSa@0600 hypothyroidism 30 days #30 tabs 01/06/24
magnesium oxide 500 mg PO DAILY Supplement 30 days #30 tabs 01/06/24
midodrine 5 mg tablet 2.5 mg (1/2 x 5 mg) PO BID@0700,1200 hypotension 30 days #60 tabs 01/06/24
multivitamin with folic acid 400 mcg tablet (Tab-A-Lizzy) 1 tab PO DAILY Supplement 30 days #30 tabs 01/06/24
tamsulosin 0.4 mg capsule 0.4 mg PO NOON Urinary Hesitancy 04/01/24
tramadol 50 mg tablet 50 mg PO Q6HPRN PRN moderate pain 5 days #20 tabs 04/08/24
metoprolol tartrate 25 mg tablet 12.5 mg PO NOON Heart disease/condition 11/09/24
Review of Systems
-
Unable to obtain full review of systems at this time due to: Acuity
Physical Exam
Vital Signs
Vital Signs
Temp Pulse Resp BP Pulse Ox
97.5 F 85 16 171/83 93
11/09/24 11:09 11/09/24 11:45 11/09/24 11:45 11/09/24 11:45 11/09/24 11:45
Physical exam:
General: Acutely ill
HEENT: Normocephalic, Atraumatic and Moist Mucous Membranes
Respiratory: Clear to Auscultation; Negative Wheezes, Rales or Rhonchi
Cardiac: Regular Rhythm and S1/S2
GI: Soft, Nontender and Nondistended
Musculoskeletal: No Clubbing, No Cyanosis and No Edema
Neuro: Awake, Alert and Oriented, left dense hemiparesis, left hemineglect, left hemianopsia, sensory deficits in the left. Mild fasciculations.
Physical Exam
General: Other
Laboratory Results
-
11/09/24 11:32
Data Reviewed
-
CT Scan: Image Personally Visualized and interpreted
Lab Data: Labs Reviewed by me
Impression/Plan
-
IMPRESSION:
Patient 84 years old female with multiple comorbidities presented to the hospital acute onset of neurological deficits consistent with acute CVA. Patient at increased risk of morbidity and mortality due to acute presentation and comorbidities. Did
also required thrombolytics stat. She was subsequently found to have intracranial bleed as described below. Remains critically ill.
PLAN:
Acute ischemic stroke:
CT of the head no acute intracranial abnormality
CTA of the head and neck no LVO
NIH score up to 19 by the time of my initial evaluation
Neurology consulted-discussed with neurology in person at bedside
TNK to be given today
Critical care consulted-discussed with telescope maintenance via [facility] text.
Close neurological monitoring
Plan for MRI and or CT 24 hours post thrombolysis
Antiplatelets post 24 hours thrombolysis
Check fasting lipids and hemoglobin A1c
PT OT and speech pathology eval
Maintain euglycemia, normothermia, permissive hypertension.
Intracranial bleed post TNK:
Shortly after thrombolysis, patient became less responsive and seizure-like activity as well. Partial seizure preceded the bleed.
Repeated CT scan of the head stat. It shows levi bleed.
Intracranial bleed in the levi area so unclear if TNK related (seems less likely) or hemorrhagic conversion of initial stroke since original stroke most likely on right middle cerebral artery territory unless there was also affected ischemic areas
in the levi. This is usually location for hypertensive bleeds.
Will have tight control with Cardene drip and blood pressure to keep MAP 70-90
Neurological monitoring
Repeat images tomorrow or earlier if clinical deterioration with CT scan of the head. +/- brain MRI
Atrial fibrillation with rapid medical response:
Cardizem drip initiated in the ED but subsequently stopped.
Cardiology consult-discussed with cardiology via [facility]
Seizures:
Left-sided simple partial seizures
IV Keppra loading dose
Will defer to neurology if maintenance doses
Hypertensive emergency:
Initially permissive hypertension but now with intracranial bleed will have tighter control blood pressure with Cardene drip since target would be different
Hyperlipidemia:
Check fasting lipids in a.m.
Resume statins when able to take oral
Hypothyroidism:
Will resume thyroid replacement when able to take oral
DVT prophylaxis:
SCDs
No pharmacological prophylaxis given thrombolytics given today
CODE STATUS:
Clarified with henrry Sheets at bedside and patient is DNR. Family does not want comfort care at the moment but understand that if she does poorly then this will be reevaluated.
Total Critical Care Time__40___ minutes. I was immediately available to the patient and staff. I personally examined, reviewed labs, diagnostic images/reports, interpretations, treatment plans, discussed patient care with other providers and
family or caregivers (if patient is unable to make decisions), entered orders as appropriate and documented the medical record.
[2024-11-09 11:58] LABS: ALT (SGPT) 26 U/L (0-35); AST (SGOT) 26 U/L (14-36); Albumin 3.4 g/dl (3.5-5.0); Alkaline Phosphatase 67 U/L (38-126); Blood Urea Nitrogen 22 mg/dl (7-17); Calcium 9.3 mg/dl (8.4-10.2); Carbon Dioxide 24 mmol/L (22-30); Chloride 106 mmol/L (98-107); Glucose 167 mg/dl (70-99); Potassium 3.7 mmol/L (3.5-5.1); Sodium 138 mmol/L (135-145); Total Bilirubin 0.8 mg/dl (0.2-1.3); Total Protein 5.9 g/dl (6.3-8.2); eGFR 56.25
[2024-11-09] MEDS: KEPPRA 1000 MG IV ×2 (12:03→12:23)
[2024-11-09 12:10] LABS: Troponin I < 0.012 ng/ml
--- NOTE | 2024-11-09 13:19 | CON.INTV ---
Consultation
Consultation Request
Date/Time Consultation Requested: 11/09/24
Date/Time Consultation Performed: 11/09/24 12:10
Performing Provider: Milo Tanner
Reason for Consultation: CVA
Medical History
-
Chief Complaint: CVA
History of Present Illness:
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
retention presented after a syncope episode and complete left-sided paralysis. Prehospital stroke alert was called.
On arrival to the patient had temperature of 97.5, pulse 85, blood pressure 169/74 and respiratory rate of 11 with oxygen saturation of 94% on room air.
Initial Head CT showed no evidence of acute intracranial abnormality.
CTA with no large vessel occlusion, no aneurysm or dissection. Mild to moderate calcified plaque within both carotid bulbs and proximal ICAs without significant luminal stenosis.
Tenecteplase was given to the patient after discussion with neurology and family.
Patient had a seizure in the ER and was given 1000 mg Keppra 2x and 1 mg Ativan subsequently patient was unresponsive
Repeat head CT showed acute intra parenchymal bleed with levi measuring 1.9 X1.0X 2.0 cm.
Labs in the ER showed. CBC; unremarkable, CMP with blood glucose of 167, tropes negative
EKG with A-fib with RVR; repeat EKG with sinus rhythm.
Portions of this history was obtained from EMR chart review, patient's niece Kortney, ER physician and nurse.
PMHx: CVA in December 2023, hypertension, hypercholesterolemia, hypothyroidism
PSHx: Wound debridement
Past Medical History
Past Medical History: Other (As in HPI)
Past Surgical History: Other (As in HPI)
Social History
Tobacco: Non-smoker
Alcohol: None
Drug: None
Living: With Family
Family History
Family History: Reviewed & Not Pertinent
Allergies / Home Medications
Allergies
Allergy/AdvReac Type Severity Reaction Status Date / Time
chocolate Allergy MOUTH SORES Verified 10/08/24 08:30
lisinopril [From Prinivil] Allergy coughing Verified 10/08/24 08:30
Home Medications
�Medication �Instructions �Recorded �Confirmed �Last Taken �Type
fluticasone propionate 50 2 spray intranasal DAILYPRN PRN 12/06/23 11/09/24 1 Week Ago History
mcg/actuation nasal allergies ~10/01/24
spray,suspension
acetaminophen 325 mg tablet 650 mg (2 x 325 mg) PO Q4HPRN PRN 01/06/24 11/09/24 10/08/24 04:00 Rx
MILD PAIN 30 days #100 tabs
ascorbic acid (vitamin C) 500 mg 500 mg PO DAILY supplement 30 days 01/06/24 11/09/24 10/07/24 08:00 Rx
tablet (Vitamin C) #30 tabs
aspirin 81 mg chewable tablet 81 mg PO DAILY CVA #0 tabs 01/06/24 11/09/24 10/07/24 08:00 Rx
(Children's Aspirin)
atorvastatin 10 mg tablet 10 mg PO DAILY cholesterol 30 days 01/06/24 11/09/24 10/07/24 22:00 Rx
#30 tabs
ferrous sulfate 325 mg (65 mg 325 mg PO DAILY Supplement 30 days 01/06/24 11/09/24 10/07/24 08:00 Rx
iron) tablet (FeroSul) #30 tabs
levothyroxine 50 mcg tablet 50 mcg PO MoTuWeThFrSa@0600 01/06/24 11/09/24 10/07/24 08:00 Rx
hypothyroidism 30 days #30 tabs
magnesium oxide 500 mg PO DAILY Supplement 30 days 01/06/24 11/09/24 10/07/24 08:00 Rx
#30 tabs
midodrine 5 mg tablet 2.5 mg (1/2 x 5 mg) PO 01/06/24 11/09/24 10/07/24 12:00 Rx
BID@0700,1200 hypotension 30 days
#60 tabs
multivitamin with folic acid 400 1 tab PO DAILY Supplement 30 days 01/06/24 11/09/24 10/07/24 08:00 Rx
mcg tablet (Tab-A-Lizzy) #30 tabs
tamsulosin 0.4 mg capsule 0.4 mg PO NOON Urinary Hesitancy 04/01/24 11/09/24 10/07/24 22:00 History
tramadol 50 mg tablet 50 mg PO Q6HPRN PRN moderate pain 04/08/24 11/09/24 2 Weeks Ago Rx
5 days #20 tabs ~09/24/24
metoprolol tartrate 25 mg tablet 12.5 mg PO NOON Heart 11/09/24 11/09/24 Unknown History
disease/condition
Review of Systems
-
Unable to Obtain full review of systems at this time due to: Patient Non Verbal
Vitals / Labs / Diagnostic Testing
Vital Signs
Temp Pulse Resp BP Pulse Ox
97.5 F 98 11 169/101 95
11/09/24 11:10 11/09/24 13:07 11/09/24 13:07 11/09/24 13:07 11/09/24 12:30
Lab Data
11/09/24 11:32
11/09/24 11:32
Laboratory Results
11/09/24
11:32
PT 14.7 H
INR 1.12
APTT 28.3
Diagnostic Testing:
Physical Exam
-
HEENT: Other (Patient unresponsive with dilated pupils)
Cardiovascular: S1/S2 and Irregular Rhythm
Respiratory: Non-Labored Respirations (Coarse breath sound)
Neurology: Other (Unresponsive)
Skin: Warm
Assessment
-
84-year-old female with past medical history presented after syncope, found to have CVA received TNK, experienced seizure and pontine hemorrhage in the ER.
#Acute CVA
#Hemorrhage in right levi
#Hypertension
#A-fib
#Hyperglycemia
#Thrombocytopenia
#Hypothyroidism
#Hyperlipidemia
Recommendations
Left hemiparesis:
-s/p tenecteplase
-Repeat CT head in the a.m. ; neurology following
-IVF NSS
-ativan prn
-keppra 500mg iv bid
Hypertension and A-fib:
-Continue Cardene drip
-Cardiology consult
-Keep SBP >140
Goals of care discussion with family.
CODE STATUS DNR
[2024-11-09] MEDS: CARDENE 200 IV (13:33)
[2024-11-09 14:26] LABS: Glucose - Point of Care 201 mg/dl (70-99)
--- NOTE | 2024-11-09 14:29 | PTCARENOTE ---
Received patient from ER. patient is completely unresponsive, obtunded. Pupils are 7mm, unresponsive, no movement from from any extremities. Patient is on 2L, diminished and irregular breaths. patient is in an afib rhythm. Cardene gtt infusing
into left AC. She is NPO, assuming incontinent of bowel and bladder, CHG bath completed. Will review orders.
[2024-11-09] MEDS: NSS 1000 IV (15:20)
--- NOTE | 2024-11-09 15:34 | W.PN.UPDATE ---
Update Note
Progress Note Update
The patient's niece, Caron Bella, came to the bedside. Caron would like to transition to comfort care now. All questions were answered and emotional support was provided. Caron would like a chief psychology to see Velia before transitioning to comfort
care. Primary hospitalist + neurology were made aware of this change in management.
[2024-11-09] MEDS: ATIVAN 1 MG IV (15:45)
[2024-11-09] MEDS: DILAUDID 0.5 MG IV (15:45)
--- NOTE | 2024-11-09 15:48 | CHAP ---
Emotional and spiritual support provided. End of life prayers shared, prayer blanket given. Will follow as able.
--- NOTE | 2024-11-09 16:07 | PTCARENOTE ---
Héctor Sheets here at bedside, transitioned patient to comfort care.
--- NOTE | 2024-11-09 17:07 | W.PN.DEATH ---
Pronouncement of
-
Called to see patient to pronounce.
No spontaneous heart tones or respirations noted.
Patient not responsive to verbal stimuli.
Patient is pronounced .
Time of : 16:38
Date of : 11/09/24
Cause of : Cerebral Hemorrhage
Family Notified: Yes (aware per RN)
--- NOTE | 2024-11-09 19:06 | W.DCSUMMARY ---
Discharge Summary
Discharge Data
Date of Admission: 11/09/24
Date of Discharge: 11/09/24
-
Pending Results: No
Hospital Course
Patient 84 years female with history of skin cancer, hypertension, GERD, cervical dysplasia, bilateral ischemic CVA presented with acute onset of left hemiparesis. Neurology consulted in the ED and after CTA negative and CTA with no LVO she was
given TNK. Suspicion for acute right MCA stroke. After thrombolytics patient became unresponsive and had seizures activity. Patient had repeat CT scan that showed acute pontine intraparenchymal hemorrhage. Discussions took place with family and
CODE STATUS was reiterated as DNR and no heroic measures. Initially she was going to be observed clinically but patient deteriorated rapidly and became more unresponsive so decision was made to transition to comfort care. Patient on
11/09/2024 at 16:38.
Discharge duration: 35 minutes
Discharge Plan
-
Patient Disposition:
Date/Time
Date/Time: 11/09/24 16:38
Discharge Date and Time
Discharge Date/Time: 11/09/24 16:38
Print Language: ALGERIAN
== END 2024-11-09 16:38 | disposition expired | DRG 61 ==
LOC: ICU 12:27
PROVIDERS: ADMITTING PHYSICIAN Hospitalist; CONSULT PHYSICIAN Internal Medicine Critical Care Medicine; CONSULT PHYSICIAN Psychiatry & Neurology Clinical Neurophysiology; EMERGENCY PHYSICIAN Emergency Medicine
PROC: 3E03317 Introduction of Other Thrombolytic into Peripheral Vein, Percutaneous Approach (ICD-10-PCS; 2024-11-09)
DX: I63.511 Cerebral infarction due to unspecified occlusion or stenosis of right middle cerebral artery (principal); I61.9 Nontraumatic intracerebral hemorrhage, unspecified; I16.1 Hypertensive emergency; I69.154 Hemiplegia and hemiparesis following nontraumatic intracerebral hemorrhage affecting left non-dominant side; I48.91 Unspecified atrial fibrillation; R29.719 NIHSS score 19; Z66 Do not resuscitate; E03.9 Hypothyroidism, unspecified; Z51.5 Encounter for palliative care; N18.9 Chronic kidney disease, unspecified; I12.9 Hypertensive chronic kidney disease with stage 1 through stage 4 chronic kidney disease, or unspecified chronic kidney disease; D69.6 Thrombocytopenia, unspecified; R56.9 Unspecified convulsions; Z85.828 Personal history of other malignant neoplasm of skin
CPT/HCPCS: 70450; 70496; 70498; 71045; 80053; 82962; 84484; 85025; 85610; 85730; 93005; 96374; 96375; 96376; 99291; J3101; Q9967